=== PATIENT | male | born 1965 | race Caucasian/White ===

== ENCOUNTER 2018-04-06 09:38 | Emergency (ER) | payer MEDICAID ==
[~2018-04-06] VITALS: Ht 175.3 cm; Wt 99.8 kg
[~2018-04-06 09:38] MED LIST: PER10325T PO
[2018-04-06 09:44] VITALS: BP 112/85
[2018-04-06] MEDS ORDERED: IBUP-1985 PO (10:20)
[2018-04-06] MEDS ORDERED: ibuprofen tablet 400 MG TABLET PO ONE (10:20)
== END 2018-04-06 10:43 | disposition home or self-care (01) ==
LOC: ER 09:38
DX: G89.29 Other chronic pain (principal); M25.512 Pain in left shoulder; Z98.890 Other specified postprocedural states; Z79.899 Other long term (current) drug therapy; Z59.0 Homelessness; X50.1XXA Overexertion from prolonged static or awkward postures, initial encounter; Y93.84 Activity, sleeping; Y92.89 Other specified places as the place of occurrence of the external cause; Y99.8 Other external cause status
CPT/HCPCS: 99282; A4565

== ENCOUNTER 2018-09-01 11:58 | Emergency (ER) | payer MEDICAID ==
[~2018-09-01] VITALS: Ht 175.3 cm; Wt 107.0 kg
[~2018-09-01 11:58] MED LIST changes: +IBUP-1985 PO
[2018-09-01 12:15] VITALS: BP 130/91
== END 2018-09-01 12:51 | disposition left against medical advice (07) ==
LOC: ER 11:59
DX: R07.81 Pleurodynia (principal); Z53.21 Procedure and treatment not carried out due to patient leaving prior to being seen by health care provider
CPT/HCPCS: 93005; 99281

== ENCOUNTER 2018-09-18 15:54 | Inpatient (IN) | payer MEDICAID ==
[~2018-09-18] VITALS: Ht 175.3 cm; Wt 104.5 kg
[~2018-09-18 15:54] MED LIST changes: +PANT-47 PO
[2018-09-18 16:37] LABS: BASOPHILS # (AUTO) 0.1 X10'3 (0-0.2); BASOPHILS % (AUTO) 0.8 % (0-1); EOSINOPHILS % (AUTO) 0.1 % (0-6); HEMATOCRIT 50.9 % (42.0-52.0); HEMOGLOBIN 17.4 g/dl (14.0-17.9); LYMPHOCYTES # (AUTO) 0.6 X10'3 (1.1-4.8); LYMPHOCYTES % (AUTO) 5.4 % (21-51); MEAN CORPUSCULAR HEMOGLOBIN 32.8 PG (27.0-31.0); MEAN CORPUSCULAR HGB CONC 34.1 % (33.0-36.5); MEAN CORPUSCULAR VOLUME 96.1 FL (78-98); MONOCYTES # (AUTO) 0.9 X10'3 (0-0.9); MONOCYTES % (AUTO) 8.4 % (2-12); NEUTROPHILS # (AUTO) 9.2 X10'3 (1.8-7.7); NEUTROPHILS % (AUTO) 85.3 % (42-75); PLATELET COUNT 211 X10'3 (140-440); RED CELL DISTRIBUTION WIDTH 15.6 % (11.5-14.5); WHITE BLOOD COUNT 10.8 X10'3 (4.5-11.0)
[2018-09-18 16:44] LABS: PARTIAL THROMBOPLASTIN TIME 24 SECONDS (22-32)
[2018-09-18 16:47] LABS: ALANINE AMINOTRANSFERASE 230 U/L (12-78); ALBUMIN 4.2 G/DL (3.4-5.0); ALBUMIN/GLOBULIN RATIO 0.9 (1.1-1.5); ALKALINE PHOSPHATASE 108 IU/L (46-116); ANION GAP 18 (8-16); ASPARTATE AMINO TRANSFERASE 246 U/L (10-37); BILIRUBIN,TOTAL 0.8 MG/DL (0.1-1.0); BLOOD UREA NITROGEN 8 MG/DL (7-18); BUN/CREATININE RATIO 6.8 (5.4-32.0); CALCIUM 8.4 MG/DL (8.5-10.1); CHLORIDE 97 MMOL/L (99-107); CREATININE 1.18 MG/DL (0.60-1.10); ETHANOL 0.059 GM/DL (0.0-0.010); GLUCOSE 89 MG/DL (70-104); POTASSIUM 3.5 MMOL/L (3.5-5.1); SODIUM 136 MMOL/L (135-145); TOTAL CARBON DIOXIDE 21.4 MMOL/L (24-32); TOTAL PROTEIN 8.7 G/DL (6.4-8.2); eGFR 65 ML/MIN
[2018-09-18] MEDS ORDERED: LORazepam 2 mg/ml vial IV ONE ×2 (18:05→18:40)
[2018-09-18 18:19] LABS: LIPASE 551 U/L (73-393)
[2018-09-18] MEDS ORDERED: normal saline 1000ML IV soln IVB ONE (18:50)
[2018-09-18] MEDS ORDERED: pantoprazole 40 MG vial IV ONE (18:55)
[2018-09-18] MEDS ORDERED: cloNIDine 0.1 mg tablet PO SCH (19:45)
[2018-09-18 19:52] LABS: OCCULT BLOOD STOOL POSITIVE (Neg)
[2018-09-18] MEDS ORDERED: TRAZ-218 PO (20:48)
[2018-09-18] MEDS ORDERED: OLAN10TA19 PO (20:48)
[2018-09-18] MEDS ORDERED: PRAZ1CAP5 PO (20:48)
[2018-09-18] MEDS: normal saline 1000ml 1,000 ML IV SCH (20:53)
[2018-09-18] MEDS ORDERED: magnesium Cl slow-release 64mg tablet PO PRN (20:55)
[2018-09-18] MEDS ORDERED: magnesium 4gm in 100ml NS 100 ML IV PRN (20:55)
[2018-09-18] MEDS ORDERED: ondansetron/PF 4mg/2ml inj IV PRN (20:55)
[2018-09-18] MEDS ORDERED: mag hydrox/Alum hydrox/simeth 30ml oral suspension PO PRN (20:55)
[2018-09-18] MEDS ORDERED: metoclopramide 5 mg/ml inj IV PRN (20:55)
[2018-09-18] MEDS ORDERED: thiamine inj. 100 MG in normal saline 100ml IV soln 100 ML IV ONE (20:55)
[2018-09-18] MEDS ORDERED: magnesium 2GM in 50ml NS 50 ML IV PRN (20:55)
[2018-09-18] MEDS ORDERED: haloperidol lactate 5mg/ml inj IM PRN (20:55)
[2018-09-18] MEDS ORDERED: magnesium hydroxide 30ml (MOM) UD suspension PO PRN (20:55)
[2018-09-18] MEDS ORDERED: acetaminophen 325mg tablet PO PRN ×2 (20:55)
[2018-09-18] MEDS ORDERED: potassium Cl 20 mEq SR tablet PO PRN ×2 (20:55)
[2018-09-18] MEDS ORDERED: potassium Cl 40MEQ/NS 500ml 500 ML IV PRN ×2 (20:55)
[2018-09-18] MEDS: cloNIDine 0.1 mg tablet PO SCH (21:00)
[2018-09-18] MEDS ORDERED: thiamine 100mg/ml 2ml inj. IV ONE (21:15)
[2018-09-18] MEDS: OLANZapine 2.5MG tablet PO SCH (23:39)
[2018-09-18] MEDS: LORazepam 2 mg/ml vial IV PRN (23:45)
[2018-09-19 00:22] LABS: CLARITY,URINE CLEAR (Clear); COLOR,URINE YELLOW (Yellow); GLUCOSE, URINE NEGATIVE (Neg); KETONES,URINE 40 mg/dl (Neg); LEUKOCYTE ESTERASE ,URINE NEGATIVE (Neg); NITRITES, URINE NEGATIVE (Neg); OCCULT BLOOD,URINE NEGATIVE (Neg); PH,URINE 7.5 (4.8-8.0); PROTEIN,URINE TRACE mg/dl (Neg)
[2018-09-19 00:29] LABS: UA COLLECTION TYPE CLN CATCH MIDSTREAM
[2018-09-19 00:30] LABS: BACTERIA,URINE FEW /HPF (Neg); RBC,URINE NONE SEEN /HPF (0-2); SQUAMOUS EPITHELIAL CELL,UR FEW /LPF (FEW); WBC,URINE NONE SEEN /HPF (0-4)
[2018-09-19 00:40] LABS: URINE AMPHETAMINE SCREEN NEGATIVE (Neg); URINE BARBITUATE SCREEN NEGATIVE (Neg); URINE BENZODIAZEPINES SCREEN NEGATIVE (Neg); URINE CANNABINOID SCREEN POSITIVE (Neg); URINE COCAINE SCREEN NEGATIVE (Neg); URINE METHADONE SCREEN NEGATIVE (Neg); URINE OPIATE SCREEN NEGATIVE (Neg); URINE PHENCYCLIDINE SCREEN NEGATIVE (Neg)
[2018-09-19] MEDS: LORazepam 2 mg/ml vial IV PRN ×5 (05:47→23:21)
[2018-09-19 07:33] LABS: BASOPHILS % (AUTO) 0.6 % (0-1); EOSINOPHILS # (AUTO) 0.1 X10'3 (0-0.9); EOSINOPHILS % (AUTO) 1.5 % (0-6); HEMATOCRIT 44.2 % (42.0-52.0); LYMPHOCYTES # (AUTO) 0.5 X10'3 (1.1-4.8); LYMPHOCYTES % (AUTO) 9.4 % (21-51); MEAN CORPUSCULAR HEMOGLOBIN 32.3 PG (27.0-31.0); MEAN CORPUSCULAR HGB CONC 33.9 % (33.0-36.5); MEAN CORPUSCULAR VOLUME 95.3 FL (78-98); MEAN PLATELET VOLUME 7.4 FL (7.4-10.4); MONOCYTES # (AUTO) 0.7 X10'3 (0-0.9); MONOCYTES % (AUTO) 11.5 % (2-12); NEUTROPHILS # (AUTO) 4.5 X10'3 (1.8-7.7); PLATELET COUNT 131 X10'3 (140-440); RED BLOOD COUNT 4.64 X10'6 (4.70-6.10); RED CELL DISTRIBUTION WIDTH 15.9 % (11.5-14.5); WHITE BLOOD COUNT 5.8 X10'3 (4.5-11.0)
[2018-09-19 07:45] LABS: ANION GAP 11 (8-16); BLOOD UREA NITROGEN 8 MG/DL (7-18); BUN/CREATININE RATIO 7.9 (5.4-32.0); CALCIUM 7.9 MG/DL (8.5-10.1); CHLORIDE 101 MMOL/L (99-107); CREATININE 1.01 MG/DL (0.60-1.10); GLUCOSE 82 MG/DL (70-104); MAGNESIUM 2.1 MG/DL (1.5-2.4); POTASSIUM 3.7 MMOL/L (3.5-5.1); SODIUM 136 MMOL/L (135-145); TOTAL CARBON DIOXIDE 24.3 MMOL/L (24-32); eGFR 78 ML/MIN
[2018-09-19] MEDS: K and/or MAG REPLACEMENT MC SCH (08:00)
[2018-09-19] MEDS: cloNIDine 0.1 mg tablet PO SCH ×3 (08:00→21:27)
[2018-09-19] MEDS: normal saline 1000ml 1,000 ML IV SCH ×3 (11:08→21:28)
[2018-09-19] MEDS: pantoprazole 40mg Tablet.DR PO SCH (11:08)
[2018-09-19] MEDS: thiamine 100mg tablet PO SCH (11:08)
[2018-09-19] MEDS: HYDROcodone/acetaminophen 5mg/325mg tablet PO PRN (12:56)
[2018-09-19] MEDS ORDERED: prazosin 1mg capsule PO SCH (21:00)
[2018-09-19] MEDS ORDERED: traZODone 50mg tablet PO SCH (21:00)
[2018-09-19] MEDS ORDERED: olanzapine 10mg tablet PO SCH (21:00)
[2018-09-19] MEDS: OLANZapine 2.5MG tablet PO SCH (21:27)
--- NOTE | 2018-09-20 00:20 | NUR ---
relieving RN for lunch, pt is resting quietly on bed, slightly tremulous, pt is calm and cooperative, resp even and unlabored, waiting for bed assignment
[2018-09-20] MEDS: haloperidol 5mg tablet PO PRN ×2 (00:23→07:01)
[2018-09-20] MEDS: LORazepam 2 mg/ml vial IV PRN ×11 (00:26→18:24)
--- NOTE | 2018-09-20 00:45 | NUR ---
pt up at bedside to use urinal, slightly unsteady on feet, outer diameter technician at bedside
--- NOTE | 2018-09-20 02:09 | NUR ---
Patient is now sleeping quietly.
[2018-09-20] MEDS ORDERED: chlordiazePOXIDE 25mg capsule PO ONE (02:30)
--- NOTE | 2018-09-20 02:43 | NUR ---
Patient is awake and shaking. States he has all over body pain. Patient states he may AMA to go and get alcohol. I advised I could give him an ativan dose again along with a norco for his pain. This radio script writer contacted the hospitalist Dr. Martinez. Additional telephone orders for Melatonin and Librium recieved.
[2018-09-20] MEDS ORDERED: Melatonin 3mg tablet PO SCH ×2 (02:45→21:00)
[2018-09-20] MEDS ORDERED: Melatonin 3mg tablet PO ONE (02:45)
[2018-09-20] MEDS: HYDROcodone/acetaminophen 5mg/325mg tablet PO PRN ×3 (02:51→14:58)
--- NOTE | 2018-09-20 06:30 | NUR ---
Asleep upon change of shift observation. Heart monitors in place via Telemetry. Breathing WNL.
[2018-09-20] MEDS: cloNIDine 0.1 mg tablet PO SCH ×2 (06:59→13:15)
--- NOTE | 2018-09-20 07:00 | NUR ---
Patient awake and asking for medication to "stop these bad shakes." Ativan 2 mg. IV administered as ordered.
[2018-09-20] MEDS: thiamine 100mg tablet PO SCH (07:01)
[2018-09-20] MEDS: K and/or MAG REPLACEMENT MC SCH (07:01)
[2018-09-20] MEDS: pantoprazole 40mg Tablet.DR PO SCH (07:01)
[2018-09-20] MEDS: mag hydrox/Alum hydrox/simeth 30ml oral suspension PO SCH ×4 (08:00→20:06)
--- NOTE | 2018-09-20 08:30 | NUR ---
Served breakfast. Ate well. Returned to sleep immediately afterwards
--- NOTE | 2018-09-20 09:30 | NUR ---
Patient states "I'm feeling very shaky. I need Ativan or something." Lidia LOVE, Charge Nurse administered 2 mg. Ativan IV as ordered.
--- NOTE | 2018-09-20 10:00 | NUR ---
Call received from surgical floor stating patient had a bed in 360A. Report given to nurse and patient transported to the floor without event
[2018-09-20 10:32] LABS: BASOPHILS % (AUTO) 0.5 % (0-1); EOSINOPHILS # (AUTO) 0.1 X10'3 (0-0.9); EOSINOPHILS % (AUTO) 2.7 % (0-6); HEMATOCRIT 44.7 % (42.0-52.0); HEMOGLOBIN 15.1 g/dl (14.0-17.9); LYMPHOCYTES # (AUTO) 0.6 X10'3 (1.1-4.8); LYMPHOCYTES % (AUTO) 14.3 % (21-51); MEAN CORPUSCULAR HGB CONC 33.7 % (33.0-36.5); MEAN CORPUSCULAR VOLUME 94.8 FL (78-98); MEAN PLATELET VOLUME 7.3 FL (7.4-10.4); MONOCYTES # (AUTO) 0.4 X10'3 (0-0.9); NEUTROPHILS % (AUTO) 72.5 % (42-75); PLATELET COUNT 123 X10'3 (140-440); RED BLOOD COUNT 4.72 X10'6 (4.70-6.10); WHITE BLOOD COUNT 4.1 X10'3 (4.5-11.0)
--- NOTE | 2018-09-20 10:36 | NUR ---
Received report from KATE Chavira. Awaiting patient arrival to floor.
[2018-09-20 10:43] LABS: ALANINE AMINOTRANSFERASE 113 U/L (12-78); ALBUMIN/GLOBULIN RATIO 0.8 (1.1-1.5); ALKALINE PHOSPHATASE 83 IU/L (46-116); ANION GAP 11 (8-16); ASPARTATE AMINO TRANSFERASE 86 U/L (10-37); BILIRUBIN,TOTAL 0.7 MG/DL (0.1-1.0); BLOOD UREA NITROGEN 7 MG/DL (7-18); BUN/CREATININE RATIO 6.6 (5.4-32.0); CALCIUM 8.1 MG/DL (8.5-10.1); CHLORIDE 105 MMOL/L (99-107); CREATININE 1.06 MG/DL (0.60-1.10); GLUCOSE 138 MG/DL (70-104); MAGNESIUM 2.1 MG/DL (1.5-2.4); POTASSIUM 3.3 MMOL/L (3.5-5.1); SODIUM 141 MMOL/L (135-145); TOTAL CARBON DIOXIDE 24.6 MMOL/L (24-32); TOTAL PROTEIN 6.9 G/DL (6.4-8.2); eGFR 73 ML/MIN
[2018-09-20 11:33] VITALS: BP 108/83
--- NOTE | 2018-09-20 11:42 | NUR ---
RECEIVED PATIENT TO ROOM 360A VIA BED ACCOMPANIED BY X1 STAFF. PATIENT ALERT AND ORIENTED WITH NO COMPLAINTS AT THE TIME EXCEPT RIGHT UPPER ARM TENDERNESS AT IV SITE. IV SITE INFILTRATED. IV DC'D. PATIENT REQUESTED TO HAVE A SHOWER. PATIENT APPEARS TO BE ANXIOUS ABOUT WANTING "TO HAVE A SHOWER RIGHT NOW. I HAVE BEEN HERE FOR 4 DAYS WITHOUT A SHOWER." PATIENT SEEN TREMBLING AND I ADVISED PATIENT IT IS NOT SAFE FOR PATIENT TO HAVE A SHOWER AT THIS TIME UNLESS THERE IS STAFF MEMBER CLOSE BY HE IS HAVING TREMORS OF HIS BODY AND HE HAS ALREADY HAD A FALL WHERE HE HIT HIS HEAD. I OFFERED PATIENT A BED BATH INSTEAD AND HE REFUSED. PATIENT THEN STATED HE NEEDED TO USE THAT BATHROOM. ASSISTED PATIENT TO BATHROOM AND BACK. PATIENT CONTINUED TO HAVE TREMORS. HE CONTINUED TO ASK FOR A SHOWER. EDUCATED PATIENT IMPORTANCE OF HAVING A NEW IV STARTED AND IN RECEIVING HIS ATIVAN FIRST PATIENT STATES HE DOES HAVE "DT'S" WHEN HE DOES NOT GET TO DRINK ALCOHOL AND HE AGREED TO HAVE IV INSERTED FIRST. PATIENT RECEIVED ATIVAN ORDERED. BED IS LOW AND LOCKED, SIDE RAILS X2 UP, NON SKID SOCKS ON, TABS ALARM TO BE PLACED.
[2018-09-20] MEDS ORDERED: nicotine 21mg patch - 24 hr TD SCH (14:09)
--- NOTE | 2018-09-20 14:48 | NUR ---
Spoke to Dr. Kelley regarding there is an order for patient to not received opiods and to not call for opiod orders however there is an order for Monetta and patient had been getting Monetta in ED. Dr. Kelley stated patient has been complaining of pain from his fall and patient can continue to take norco.
--- NOTE | 2018-09-20 18:36 | NUR ---
Problems reprioritized. Patient report given, questions answered & plan of care reviewed with KATE MINOR.
[2018-09-20 19:00] VITALS: BP 143/97
[2018-09-20] MEDS ORDERED: LORazepam 2 mg/ml vial IV PRN ×2 (19:40→20:55)
[2018-09-20] MEDS ORDERED: LORazepam 1 MG tablet PO PRN (20:55)
[2018-09-20] MEDS ORDERED: gabapentin 300mg capsule PO SCH (21:00)
--- NOTE | 2018-09-20 21:00 | NUR ---
PT WANTS TO GO HOME. I TOLD PT HE NEEDS TO STAY AND GET OVER HE DT's. HE SAID " I NEED TO GO HOME AND TAKE CARE OF MY HOUSE" I EXPLAINED TO HIM HE WOULD HAVE TO LEAVE AMA AND I EXPLAINED WHAT THAT MEANT. I ALSO EXPLAINED THE RISK OF SERIOUS INJURY IF HE GOES HOME AND DRINKS. AFTER I NOTIFIED THE MD HE STILL WANTED TO GO. SO I CALLED SECURITY TO ESCORT HIM OUT AND TOOK OUT HIS IV AND HE LEFT WITH ALL HIS BELONGINGS, Addendum: 09/20/18 at 2200 by Tono Tomlin RN Amended: Links added.
--- NOTE | 2018-09-21 09:14 | NUR ---
Pt left AMA prior to meeting w/SS. SS referral closed.
[2018-09-22] MEDS ORDERED: LORazepam 1 MG tablet PO PRN (20:55)
[2018-09-22] MEDS ORDERED: LORazepam 2 mg/ml vial IV PRN (20:55)
== END 2018-09-20 21:15 | disposition left against medical advice (07) | DRG 469 ==
LOC: ER 15:54 → ED HOLD 20:53 → SUR 3N 09-20 10:59
PROVIDERS: ADMIT Hospitalist; ATTEND Internal Medicine
DX: N17.9 Acute kidney failure, unspecified (principal); F10.231 Alcohol dependence with withdrawal delirium; K70.10 Alcoholic hepatitis without ascites; F25.9 Schizoaffective disorder, unspecified; E86.0 Dehydration; F17.210 Nicotine dependence, cigarettes, uncomplicated; F31.9 Bipolar disorder, unspecified; F43.10 Post-traumatic stress disorder, unspecified; K29.20 Alcoholic gastritis without bleeding; S00.93XA Contusion of unspecified part of head, initial encounter; W18.39XA Other fall on same level, initial encounter; F41.9 Anxiety disorder, unspecified; G89.29 Other chronic pain; Z53.21 Procedure and treatment not carried out due to patient leaving prior to being seen by health care provider; Z59.0 Homelessness; Y93.89 Activity, other specified; Y92.89 Other specified places as the place of occurrence of the external cause; Y99.8 Other external cause status; Z79.899 Other long term (current) drug therapy; Z91.14 Patient's other noncompliance with medication regimen
CPT/HCPCS: 36415; 70450; 71045; 80048; 80053; 80305; 80320; 81001; 82272; 83690; 83735; 84484; 85025; 85610; 85730; 86885; 86900; 86901; 87070; 93005; 96361; 96374; 99285; C9113; G0378; J2060; J3411; J7030

== ENCOUNTER 2018-09-28 19:50 | Emergency (ER) | payer MEDICAID ==
[~2018-09-28] VITALS: Ht 175.3 cm; Wt 99.0 kg
[~2018-09-28 19:50] MED LIST changes: +OLAN10TA19 PO; +PRAZ1CAP5 PO; +TRAZ-218 PO
[2018-09-28 20:01] VITALS: BP 118/79
[2018-09-28] MEDS ORDERED: CYCL-1 PO (20:35)
[2018-09-28] MEDS ORDERED: ACET-2119 PO (20:35)
[2018-09-30] MEDS ORDERED: ONDA8TAB13 PO (12:36)
[2018-09-30] MEDS ORDERED: ACET-3068 PO (12:36)
== END 2018-09-28 20:55 | disposition home or self-care (01) ==
LOC: ER 19:52
DX: M25.512 Pain in left shoulder (principal); G89.29 Other chronic pain; F10.20 Alcohol dependence, uncomplicated; Z98.890 Other specified postprocedural states; Z59.0 Homelessness; Z79.899 Other long term (current) drug therapy; Y90.9 Presence of alcohol in blood, level not specified
CPT/HCPCS: 99284

== ENCOUNTER 2018-10-08 02:37 | Emergency (ER) | payer MEDICAID ==
[~2018-10-08] VITALS: Ht 175.3 cm; Wt 98.6 kg
[~2018-10-08 02:37] MED LIST changes: +ACET-3068 PO; +CYCL-1 PO; +ONDA8TAB13 PO
[2018-10-08] MEDS ORDERED: aspirin 81mg tab.chew PO ONE (03:20)
[2018-10-08 03:44] LABS: BASOPHILS # (AUTO) 0.1 X10'3 (0-0.2); BASOPHILS % (AUTO) 0.8 % (0-1); EOSINOPHILS # (AUTO) 0.2 X10'3 (0-0.9); EOSINOPHILS % (AUTO) 2.5 % (0-6); HEMATOCRIT 48.6 % (42.0-52.0); HEMOGLOBIN 17.1 g/dl (14.0-17.9); LYMPHOCYTES # (AUTO) 1.7 X10'3 (1.1-4.8); LYMPHOCYTES % (AUTO) 22.3 % (21-51); MEAN CORPUSCULAR HEMOGLOBIN 33.8 PG (27.0-31.0); MEAN CORPUSCULAR HGB CONC 35.1 g/dL (33.0-36.5); MEAN CORPUSCULAR VOLUME 96.2 FL (78-98); MEAN PLATELET VOLUME 6.8 FL (7.4-10.4); MONOCYTES # (AUTO) 0.7 X10'3 (0-0.9); MONOCYTES % (AUTO) 8.8 % (2-12); NEUTROPHILS # (AUTO) 4.9 X10'3 (1.8-7.7); NEUTROPHILS % (AUTO) 65.6 % (42-75); PLATELET COUNT 379 X10'3 (140-440); RED BLOOD COUNT 5.06 X10'6 (4.70-6.10); RED CELL DISTRIBUTION WIDTH 18.7 % (11.5-14.5); WHITE BLOOD COUNT 7.5 X10'3 (4.5-11.0)
[2018-10-08 03:51] LABS: ALANINE AMINOTRANSFERASE 79 U/L (12-78); ALBUMIN 3.7 G/DL (3.4-5.0); ALBUMIN/GLOBULIN RATIO 0.7 (1.1-1.5); ALKALINE PHOSPHATASE 110 IU/L (46-116); ANION GAP 15 (8-16); ASPARTATE AMINO TRANSFERASE 87 U/L (10-37); BILIRUBIN,TOTAL 0.4 MG/DL (0.1-1.0); BLOOD UREA NITROGEN 7 MG/DL (7-18); BUN/CREATININE RATIO 7.4 (5.4-32.0); CHLORIDE 100 MMOL/L (99-107); CREATININE 0.94 MG/DL (0.60-1.10); GLUCOSE 95 MG/DL (70-104); SODIUM 136 MMOL/L (135-145); TOTAL CARBON DIOXIDE 20.7 MMOL/L (24-32); TOTAL PROTEIN 8.7 G/DL (6.4-8.2); eGFR 84 ML/MIN
[2018-10-08 03:58] LABS: MAGNESIUM 2.3 MG/DL (1.5-2.4)
[2018-10-08] MEDS ORDERED: MUPI1OIN8 BOTHNARES (04:32)
[2018-10-08 04:46] VITALS: BP 125/85
== END 2018-10-08 04:47 | disposition home or self-care (01) ==
LOC: ER 02:38
DX: R07.89 Other chest pain (principal); R06.02 Shortness of breath; E78.00 Pure hypercholesterolemia, unspecified; I10 Essential (primary) hypertension; J45.909 Unspecified asthma, uncomplicated; F12.90 Cannabis use, unspecified, uncomplicated; G89.29 Other chronic pain; Z98.890 Other specified postprocedural states; Z79.899 Other long term (current) drug therapy; Z59.0 Homelessness
CPT/HCPCS: 36415; 71045; 80053; 83735; 83880; 84484; 85025; 93005; 99284

== ENCOUNTER 2018-10-19 08:39 | Inpatient (IN) | payer MEDICAID ==
[~2018-10-19] VITALS: Ht 175.3 cm; Wt 130.7 kg
[~2018-10-19 08:39] MED LIST changes: +MUPI1OIN8 BOTHNARES
[2018-10-19] MEDS ORDERED: LORazepam 2 mg/ml vial IV ONE ×2 (08:55→10:05)
[2018-10-19] MEDS ORDERED: normal saline 1000ML IV soln IVB ONE (09:00)
[2018-10-19 09:19] LABS: BASOPHILS # (AUTO) 0.1 X10'3 (0-0.2); EOSINOPHILS # (AUTO) 0.1 X10'3 (0-0.9); EOSINOPHILS % (AUTO) 1.3 % (0-6); HEMATOCRIT 46.2 % (42.0-52.0); HEMOGLOBIN 15.9 g/dl (14.0-17.9); LYMPHOCYTES # (AUTO) 0.4 X10'3 (1.1-4.8); LYMPHOCYTES % (AUTO) 4.7 % (21-51); MEAN CORPUSCULAR HEMOGLOBIN 33.5 PG (27.0-31.0); MEAN CORPUSCULAR HGB CONC 34.4 g/dL (33.0-36.5); MEAN CORPUSCULAR VOLUME 97.3 FL (78-98); MEAN PLATELET VOLUME 7.4 FL (7.4-10.4); MONOCYTES # (AUTO) 0.5 X10'3 (0-0.9); MONOCYTES % (AUTO) 5.9 % (2-12); NEUTROPHILS # (AUTO) 6.8 X10'3 (1.8-7.7); NEUTROPHILS % (AUTO) 87.1 % (42-75); PLATELET COUNT 99 X10'3 (140-440); RED BLOOD COUNT 4.75 X10'6 (4.70-6.10); RED CELL DISTRIBUTION WIDTH 18.1 % (11.5-14.5); WHITE BLOOD COUNT 7.8 X10'3 (4.5-11.0)
[2018-10-19 09:35] LABS: ALANINE AMINOTRANSFERASE 216 U/L (12-78); ALBUMIN 3.4 G/DL (3.4-5.0); ALBUMIN/GLOBULIN RATIO 0.9 (1.1-1.5); ALKALINE PHOSPHATASE 104 IU/L (46-116); ANION GAP 16 (8-16); ASPARTATE AMINO TRANSFERASE 250 U/L (10-37); BILIRUBIN,TOTAL 1.1 MG/DL (0.1-1.0); BLOOD UREA NITROGEN 9 MG/DL (7-18); BUN/CREATININE RATIO 9.2 (5.4-32.0); CALCIUM 7.6 MG/DL (8.5-10.1); CHLORIDE 102 MMOL/L (99-107); CREATININE 0.98 MG/DL (0.60-1.10); GLUCOSE 100 MG/DL (70-104); POTASSIUM 3.6 MMOL/L (3.5-5.1); SODIUM 140 MMOL/L (135-145); TOTAL CARBON DIOXIDE 21.6 MMOL/L (24-32); TOTAL PROTEIN 7.4 G/DL (6.4-8.2); eGFR 80 ML/MIN
[2018-10-19 09:43] LABS: ETHANOL 0.057 GM/DL (0.0-0.010); MAGNESIUM 1.8 MG/DL (1.5-2.4)
[2018-10-19 10:24] LABS: URINE AMPHETAMINE SCREEN NEGATIVE (Neg); URINE BARBITUATE SCREEN NEGATIVE (Neg); URINE BENZODIAZEPINES SCREEN NEGATIVE (Neg); URINE CANNABINOID SCREEN POSITIVE (Neg); URINE COCAINE SCREEN NEGATIVE (Neg); URINE METHADONE SCREEN NEGATIVE (Neg); URINE OPIATE SCREEN NEGATIVE (Neg); URINE PHENCYCLIDINE SCREEN NEGATIVE (Neg)
[2018-10-19] MEDS ORDERED: thiamine inj. 100 MG, magnesium sulf injection 2 GM, MVI, adult No.4 with vit. K 10 ML ... IV SCH ×4 (10:35)
[2018-10-19] MEDS ORDERED: dextrose 50%-water 50ml dispensing syringe IV PRN (11:15)
[2018-10-19] MEDS ORDERED: thiamine 100mg/ml 2ml inj. IV ONE (11:15)
[2018-10-19] MEDS ORDERED: magnesium hydroxide 30ml (MOM) UD suspension PO PRN (11:15)
[2018-10-19] MEDS ORDERED: mag hydrox/Alum hydrox/simeth 30ml oral suspension PO PRN (11:15)
[2018-10-19] MEDS: normal saline 1000ml 1,000 ML IV SCH ×2 (11:38→22:37)
[2018-10-19] MEDS: LORazepam 2 mg/ml vial IV PRN ×4 (11:45→20:14)
[2018-10-19] MEDS: folic acid inj. 2 MG, thiamine inj. 100 MG, MVI, adult No.4 with vit. K 10 ML in dextro... IV SCH ×4 (12:04)
[2018-10-19] MEDS ORDERED: GABA-532 PO (12:08)
[2018-10-19] MEDS ORDERED: RISP1TAB13 PO (12:08)
[2018-10-19] MEDS ORDERED: RISP1TAB3 PO (12:08)
[2018-10-19] MEDS ORDERED: ALBU8.5H8 IH (12:09)
[2018-10-19 12:51] LABS: LIPASE 482 U/L (73-393)
--- NOTE | 2018-10-19 12:53 | NUR ---
PT TO CT
--- NOTE | 2018-10-19 13:10 | NUR ---
PT BACK FROM CT
[2018-10-19] MEDS: ondansetron/PF 4mg/2ml inj IV PRN ×2 (13:22→20:19)
--- NOTE | 2018-10-19 13:49 | NUR ---
PT SLEEPING LAYING SUPINE. RESPIRATIONS EVEN AND UNLABORED, NO SIGN OF DISTRESS NOTED AT THIS TIME.
[2018-10-19] MEDS ORDERED: albuterol 2.5 MG/3 ML nebule NEB PRN (16:25)
--- NOTE | 2018-10-19 17:23 | NUR ---
Report given, patient care assumed. Pt requesting ativan, a meal, and the tv.
[2018-10-19 17:24] VITALS: BP 137/88
[2018-10-19 18:00] VITALS: BP 129/89
--- NOTE | 2018-10-19 18:02 | NUR ---
Pt stating his tv is broken and wants to be moved to a different room.
--- NOTE | 2018-10-19 18:56 | NUR ---
REPORT REC'D FROM KATE BECKHAM. PATIENT JUST ARRIVED ON FLOOR FROM ER, SKIN CHECK DONE, PT IS ORIENTED AND WEAK FROM W/D ETOH. UP TO BR WITH ONE PERSON ASSIST, BM AND URINE.
[2018-10-19] MEDS: prazosin 1mg capsule PO SCH (20:17)
[2018-10-19] MEDS: gabapentin 300mg capsule PO SCH (20:17)
[2018-10-19] MEDS: heparin, porcine 5000 units/ml vial SQ SCH (20:18)
[2018-10-20] VITALS (13 sets, daily range): BP systolic 132–151; BP diastolic 82–96
[2018-10-20] MEDS: LORazepam 2 mg/ml vial IV PRN ×8 (02:16→18:45)
[2018-10-20 04:55] LABS: BASOPHILS % (AUTO) 0.4 % (0-1); EOSINOPHILS # (AUTO) 0.2 X10'3 (0-0.9); EOSINOPHILS % (AUTO) 4.1 % (0-6); HEMATOCRIT 44.2 % (42.0-52.0); HEMOGLOBIN 15.2 g/dl (14.0-17.9); LYMPHOCYTES # (AUTO) 0.6 X10'3 (1.1-4.8); LYMPHOCYTES % (AUTO) 13.5 % (21-51); MEAN CORPUSCULAR HEMOGLOBIN 33.4 PG (27.0-31.0); MEAN CORPUSCULAR HGB CONC 34.3 g/dL (33.0-36.5); MEAN CORPUSCULAR VOLUME 97.5 FL (78-98); MEAN PLATELET VOLUME 7.8 FL (7.4-10.4); MONOCYTES # (AUTO) 0.4 X10'3 (0-0.9); MONOCYTES % (AUTO) 8.6 % (2-12); NEUTROPHILS # (AUTO) 3.4 X10'3 (1.8-7.7); NEUTROPHILS % (AUTO) 73.4 % (42-75); PLATELET COUNT 70 X10'3 (140-440); RED BLOOD COUNT 4.54 X10'6 (4.70-6.10); WHITE BLOOD COUNT 4.7 X10'3 (4.5-11.0)
[2018-10-20 05:11] LABS: ALANINE AMINOTRANSFERASE 144 U/L (12-78); ALBUMIN/GLOBULIN RATIO 0.8 (1.1-1.5); ALKALINE PHOSPHATASE 94 IU/L (46-116); ANION GAP 12 (8-16); ASPARTATE AMINO TRANSFERASE 124 U/L (10-37); BILIRUBIN,TOTAL 1.5 MG/DL (0.1-1.0); CALCIUM 7.5 MG/DL (8.5-10.1); CHLORIDE 104 MMOL/L (99-107); CREATININE 0.92 MG/DL (0.60-1.10); GLUCOSE 75 MG/DL (70-104); POTASSIUM 3.4 MMOL/L (3.5-5.1); SODIUM 139 MMOL/L (135-145); TOTAL CARBON DIOXIDE 23.1 MMOL/L (24-32); TOTAL PROTEIN 6.8 G/DL (6.4-8.2); eGFR 86 ML/MIN
[2018-10-20 05:48] LABS: INR 1.1 INR; PROTHROMBIN TIME 11.3 SECONDS (9.0-12.0)
[2018-10-20 05:52] LABS: BLOOD UREA NITROGEN 9 MG/DL (7-18); BUN/CREATININE RATIO 9.8 (5.4-32.0)
--- NOTE | 2018-10-20 06:23 | NUR ---
REPORT GIVEN TO KATE LOO.
[2018-10-20] MEDS: folic acid inj. 2 MG, thiamine inj. 100 MG, MVI, adult No.4 with vit. K 10 ML in dextro... IV SCH ×4 (07:51)
[2018-10-20] MEDS: gabapentin 300mg capsule PO SCH ×3 (07:51→19:55)
[2018-10-20] MEDS: normal saline 1000ml 1,000 ML IV SCH ×2 (07:52→17:11)
[2018-10-20] MEDS: heparin, porcine 5000 units/ml vial SQ SCH ×2 (07:53→19:54)
--- NOTE | 2018-10-20 09:21 | NUR ---
Asked about NPO order Paged Dr. Spence "Re: [place] [id number]. Can this patient eat? currently has NPO orders. Thank you, Johana [facility] [phone]"
[2018-10-20] MEDS ORDERED: regadenoson 0.4mg/5ml syringe IV PRN (09:55)
[2018-10-20] MEDS ORDERED: nitroGLYCERIN 0.4mg SUBLingual tab SL PRN (09:55)
[2018-10-20] MEDS ORDERED: metoprolol tartrate 1mg/ml inj IV PRN (09:55)
[2018-10-20] MEDS ORDERED: aminophylline 250mg/10ml inj. IV PRN (09:55)
[2018-10-20] MEDS ORDERED: regadenoson 0.4mg/5ml syringe IV ONE (12:38)
[2018-10-20] MEDS ORDERED: aminophylline inj. 10 ML IV ONE (12:38)
--- NOTE | 2018-10-20 13:59 | NUR ---
PAGED ECHO "RE: [place] [address]. ORDER FOR ECHO. THANK YOU, EZE [facility] [phone]"
--- NOTE | 2018-10-20 15:06 | NUR ---
PAGED FOR DIET ORDER PAGED DR. LAURA- "RE: [place] [id number]. STRESS TEST NEG. CAN I FEED HIM A REGULAR DIET? THANK YOU, EZE [facility] [phone]"
--- NOTE | 2018-10-20 16:22 | NUR ---
PAGED ABOUT HOME MEDS PAGED DR. LAURA "RE; [place] [id number]. CAN YOU CHECK HOME MED LIST AND CONTINUE WHAT YOU WOULD LIKE THE PATIENT TO TAKE? THANK YOU, EZE [facility] [phone]"
--- NOTE | 2018-10-20 16:44 | NUR ---
PATIENT TRANSFERRED TO [facility] ALERT, ORIENTED, CALM, AND COOPERATIVE. SHAKING MILDLY PER BASELINE. ALL BELONGINGS TRANSFERRED WITH PATIENT. REPORT PREVIOUSLY CALLED TO NEWSPAPER PHOTO EDITOR.
--- NOTE | 2018-10-20 17:00 | NUR ---
Patient to room 354 A from PCU. Patient alert, oriented and slightly anxious at this time. Ativan to be given by primary nurse. Patient stable. BLL. Call light and items of frequent use in reach of patient. Will continue to monitor.
--- NOTE | 2018-10-20 18:25 | NUR ---
Problems reprioritized. Patient report given, questions answered & plan of care reviewed with KATE Mauro. Patient anxious at this time. KATE Mauro giving ativan.
[2018-10-20] MEDS ORDERED: traZODone 50mg tablet PO PRN (18:30)
[2018-10-20] MEDS: prazosin 1mg capsule PO SCH (19:55)
--- NOTE | 2018-10-20 20:22 | NUR ---
PT DECIDED TO GO AMA AFTER I WORKED WITH PT FOR NEARLY 2 HOURS TO GET HIM TO STAY. PT STATES HE HAS A PLACE TO GO TO. HE STATES HE IS NOT LEAVING TO GO DRINKING JUST TO SMOKE. PT SIGNED AMA PAPERWORK AND DR. LAURA NOTIFIED EARLIER. PIV DC' D INTACT AND PT TAKING OUT OF HOSPITAL VIA W/C AND AMB WITH STEADY GAIT ALTHOUGH STILL QUITE SHAKY.
[2018-10-20] MEDS ORDERED: RISPERIDONE PO SCH (21:00)
[2018-10-20] MEDS ORDERED: risperiDONE 2mg tablet PO SCH (21:00)
[2018-10-20] MEDS ORDERED: olanzapine 10mg tablet PO SCH (21:00)
--- NOTE | 2018-10-21 09:42 | NUR ---
pt's left AMA, SS referral closed.
== END 2018-10-20 20:28 | disposition home or self-care (01) | DRG 203 ==
LOC: ER 08:39 → ED HOLD 11:11 → PCU 3S 17:10 → SUR 3N 10-20 16:54
PROVIDERS: ADMIT Family Medicine; ATTEND Family Medicine
DX: R07.89 Other chest pain (principal); D69.59 Other secondary thrombocytopenia; F10.239 Alcohol dependence with withdrawal, unspecified; F10.229 Alcohol dependence with intoxication, unspecified; E78.00 Pure hypercholesterolemia, unspecified; F17.210 Nicotine dependence, cigarettes, uncomplicated; F20.9 Schizophrenia, unspecified; F31.9 Bipolar disorder, unspecified; I10 Essential (primary) hypertension; J45.909 Unspecified asthma, uncomplicated; Z53.21 Procedure and treatment not carried out due to patient leaving prior to being seen by health care provider; E87.6 Hypokalemia
CPT/HCPCS: 36415; 71045; 74176; 78452; 80053; 80305; 80320; 82948; 83690; 83735; 83880; 84484; 85025; 85610; 87070; 93005; 93017; 93306; 94760; 96361; 96374; 96376; 99285; A9500; G0378; J0280; J1644; J2060; J2405; J3411; J3475; J3490; J7030; J7060

== ENCOUNTER 2018-10-23 11:58 | Emergency (ER) | payer MEDICAID ==
[~2018-10-23] VITALS: Ht 175.3 cm; Wt 60.0 kg
[~2018-10-23 11:58] MED LIST changes: -ACET-3068 PO; +ALBU8.5H8 IH; -CYCL-1 PO; +GABA-532 PO; -IBUP-1985 PO; -MUPI1OIN8 BOTHNARES; -ONDA8TAB13 PO; -PANT-47 PO; -PER10325T PO; +RISP1TAB13 PO; +RISP1TAB3 PO
[2018-10-23] MEDS ORDERED: magnesium 2GM in 50ml NS 50 ML IV ONE (13:20)
[2018-10-23] MEDS ORDERED: normal saline 1000ML IV soln IVB ONE ×2 (13:20→15:30)
[2018-10-23] MEDS ORDERED: chlordiazePOXIDE 25mg capsule PO ONE ×3 (13:20→16:10)
[2018-10-23] MEDS ORDERED: LORazepam 1 MG tablet PO ONE (13:20)
--- NOTE | 2018-10-23 13:26 | NUR ---
1320 EKG ATTEMPTED; HOWEVER, ASKED BY ANSON DURAND TO WAIT UNTIL PT IS MEDICATED DUE TO TREMORS.
[2018-10-23] MEDS ORDERED: cloNIDine 0.1 MG/24 HOUR patch (7 day patch) TD ONE (13:35)
[2018-10-23 14:12] LABS: BASOPHILS # (AUTO) 0.1 X10'3 (0-0.2); BASOPHILS % (AUTO) 0.8 % (0-1); EOSINOPHILS # (AUTO) 0.1 X10'3 (0-0.9); EOSINOPHILS % (AUTO) 1.3 % (0-6); HEMATOCRIT 50.5 % (42.0-52.0); HEMOGLOBIN 16.9 g/dl (14.0-17.9); LYMPHOCYTES % (AUTO) 14.2 % (21-51); MEAN CORPUSCULAR HEMOGLOBIN 32.8 PG (27.0-31.0); MEAN CORPUSCULAR HGB CONC 33.5 g/dL (33.0-36.5); MEAN CORPUSCULAR VOLUME 97.9 FL (78-98); MEAN PLATELET VOLUME 7.8 FL (7.4-10.4); MONOCYTES % (AUTO) 14.7 % (2-12); NEUTROPHILS # (AUTO) 4.5 X10'3 (1.8-7.7); PLATELET COUNT 197 X10'3 (140-440); RED BLOOD COUNT 5.16 X10'6 (4.70-6.10); RED CELL DISTRIBUTION WIDTH 16.8 % (11.5-14.5); WHITE BLOOD COUNT 6.7 X10'3 (4.5-11.0)
[2018-10-23 14:28] LABS: ALANINE AMINOTRANSFERASE 255 U/L (12-78); ALBUMIN 3.7 G/DL (3.4-5.0); ALBUMIN/GLOBULIN RATIO 0.8 (1.1-1.5); ALKALINE PHOSPHATASE 118 IU/L (46-116); ANION GAP 17 (8-16); ASPARTATE AMINO TRANSFERASE 274 U/L (10-37); BILIRUBIN,TOTAL 1.4 MG/DL (0.1-1.0); BLOOD UREA NITROGEN 9 MG/DL (7-18); BUN/CREATININE RATIO 10.1 (5.4-32.0); CALCIUM 8.9 MG/DL (8.5-10.1); CHLORIDE 101 MMOL/L (99-107); CREATININE 0.89 MG/DL (0.60-1.10); ETHANOL < 0.010 GM/DL (0.0-0.010); GLUCOSE 95 MG/DL (70-104); POTASSIUM 3.2 MMOL/L (3.5-5.1); SODIUM 138 MMOL/L (135-145); TOTAL CARBON DIOXIDE 20.3 MMOL/L (24-32); TOTAL PROTEIN 8.3 G/DL (6.4-8.2); eGFR 90 ML/MIN
[2018-10-23] MEDS ORDERED: potassium Cl 20 mEq SR tablet PO ONE (14:45)
[2018-10-23] MEDS ORDERED: potassium 10mEq/100ml NS w/LIDOcaine (10mg/bag) IV ONE (14:45)
[2018-10-23] MEDS ORDERED: folic acid 1mg tablet PO ONE (15:00)
[2018-10-23] MEDS ORDERED: thiamine 100mg tablet PO ONE (15:00)
[2018-10-23] MEDS ORDERED: LORazepam 2 mg/ml vial IV ONE (15:00)
[2018-10-23] MEDS ORDERED: dextrose 5%-1/2 normal saline 1,000 ML IV ONE (15:30)
[2018-10-23] MEDS ORDERED: PHE12.5T PO (15:54)
[2018-10-23] MEDS ORDERED: CHLO25CA10 PO (15:54)
[2018-10-23 16:08] LABS: CLARITY,URINE CLEAR (Clear); COLOR,URINE AMBER (Yellow); GLUCOSE, URINE NEGATIVE (Neg); KETONES,URINE 15 mg/dl (Neg); LEUKOCYTE ESTERASE ,URINE NEGATIVE (Neg); NITRITES, URINE NEGATIVE (Neg); OCCULT BLOOD,URINE NEGATIVE (Neg); PROTEIN,URINE 100 mg/dl (Neg); UA COLLECTION TYPE CLN CATCH MIDSTREAM
[2018-10-23 16:17] LABS: BACTERIA,URINE NONE SEEN /HPF (Neg); MUCUS STRANDS NONE SEEN /LPF (Neg); RBC,URINE NONE SEEN /HPF (0-2); SQUAMOUS EPITHELIAL CELL,UR NONE SEEN /LPF (FEW); WBC,URINE NONE SEEN /HPF (0-4)
[2018-10-23 16:24] LABS: URINE AMPHETAMINE SCREEN POSITIVE (Neg); URINE BARBITUATE SCREEN NEGATIVE (Neg); URINE BENZODIAZEPINES SCREEN NEGATIVE (Neg); URINE CANNABINOID SCREEN POSITIVE (Neg); URINE COCAINE SCREEN NEGATIVE (Neg); URINE METHADONE SCREEN NEGATIVE (Neg); URINE OPIATE SCREEN NEGATIVE (Neg); URINE PHENCYCLIDINE SCREEN NEGATIVE (Neg)
[2018-10-23 17:26] VITALS: BP 124/82
== END 2018-10-23 17:27 | disposition home or self-care (01) ==
LOC: ER 11:58
DX: F10.239 Alcohol dependence with withdrawal, unspecified (principal); I10 Essential (primary) hypertension; E78.00 Pure hypercholesterolemia, unspecified; J45.909 Unspecified asthma, uncomplicated; G89.29 Other chronic pain; F31.9 Bipolar disorder, unspecified; F20.9 Schizophrenia, unspecified; F12.90 Cannabis use, unspecified, uncomplicated; Z59.0 Homelessness
CPT/HCPCS: 36415; 80053; 80305; 80320; 81001; 83735; 85025; 93005; 96365; 96366; 96375; 99284; J2060; J3475; J3480; J7030

== ENCOUNTER 2018-10-27 04:36 | Emergency (ER) | payer MEDICAID ==
[~2018-10-27] VITALS: Ht 175.3 cm; Wt 99.0 kg
[~2018-10-27 04:36] MED LIST changes: +CHLO25CA10 PO; +PHE12.5T PO
[2018-10-27 04:41] VITALS: BP 144/98
[2018-10-27] MEDS ORDERED: chlordiazePOXIDE 25mg capsule PO ONE (04:45)
[2018-10-27] MEDS ORDERED: ketorolac trometh inj. 60 MG/2 ML VIAL IM ONE (04:45)
[2018-10-27] MEDS ORDERED: PHE12.5T PO (04:46)
== END 2018-10-27 05:00 | disposition home or self-care (01) ==
LOC: ER 04:36
DX: M25.512 Pain in left shoulder (principal); F10.239 Alcohol dependence with withdrawal, unspecified; I10 Essential (primary) hypertension; E78.00 Pure hypercholesterolemia, unspecified; J45.909 Unspecified asthma, uncomplicated; G89.29 Other chronic pain; Z59.0 Homelessness
CPT/HCPCS: 73030; 96372; 99283; J1885

== ENCOUNTER 2020-06-17 16:51 | Emergency (ER) | payer MEDICAID, OTHER ==
[~2020-06-17] VITALS: Ht 175.3 cm; Wt 79.0 kg
[~2020-06-17 16:51] MED LIST changes: -PHE12.5T PO; +PROM12.512 PO; -TRAZ-218 PO; +TRAZ-251 PO
[2020-06-17 17:02] VITALS: BP 114/73
[2020-06-17] MEDS ORDERED: ketorolac trometh. 30mg/ml inj. IM ONE (17:05)
[2020-06-17] MEDS ORDERED: HYDR-3965 PO (18:13)
== END 2020-06-17 18:32 | disposition home or self-care (01) ==
LOC: ER 16:52
DX: S22.32XA Fracture of one rib, left side, initial encounter for closed fracture (principal); E78.00 Pure hypercholesterolemia, unspecified; I10 Essential (primary) hypertension; J45.909 Unspecified asthma, uncomplicated; G89.29 Other chronic pain; F31.9 Bipolar disorder, unspecified; F20.9 Schizophrenia, unspecified; F12.90 Cannabis use, unspecified, uncomplicated; Z98.890 Other specified postprocedural states; Z79.899 Other long term (current) drug therapy; Y04.2XXA Assault by strike against or bumped into by another person, initial encounter; Y93.89 Activity, other specified; Y92.89 Other specified places as the place of occurrence of the external cause; Y99.8 Other external cause status
CPT/HCPCS: 71101; 96372; 99283; J1885

== ENCOUNTER 2020-06-18 08:25 | Emergency (ER) | payer OTHER ==
[~2020-06-18] VITALS: Ht 175.3 cm; Wt 77.8 kg
[~2020-06-18 08:25] MED LIST changes: +HYDR-3965 PO
[2020-06-18 08:42] VITALS: BP 120/94
[2020-06-18] MEDS ORDERED: HYDROcodone/acetaminophen 5mg/325mg tablet PO ONE (09:25)
== END 2020-06-18 09:38 | disposition home or self-care (01) ==
LOC: ER 08:26
DX: S22.32XD Fracture of one rib, left side, subsequent encounter for fracture with routine healing (principal); E78.00 Pure hypercholesterolemia, unspecified; I10 Essential (primary) hypertension; J45.909 Unspecified asthma, uncomplicated; G89.29 Other chronic pain; F31.9 Bipolar disorder, unspecified; F20.9 Schizophrenia, unspecified; F12.90 Cannabis use, unspecified, uncomplicated; Z98.890 Other specified postprocedural states; Z59.0 Homelessness; Y04.2XXD Assault by strike against or bumped into by another person, subsequent encounter
CPT/HCPCS: 99283

== ENCOUNTER 2020-06-19 17:46 | Emergency (ER) | payer OTHER ==
[~2020-06-19] VITALS: Ht 172.7 cm; Wt 80.0 kg
[2020-06-19 17:50] VITALS: BP 131/81
== END 2020-06-19 19:29 | disposition left against medical advice (07) ==
LOC: ER 17:47
DX: N48.89 Other specified disorders of penis (principal); Z53.21 Procedure and treatment not carried out due to patient leaving prior to being seen by health care provider

== ENCOUNTER 2020-06-24 07:45 | Emergency (ER) | payer OTHER ==
[~2020-06-24] VITALS: Ht 175.3 cm; Wt 74.0 kg
[2020-06-24 07:55] VITALS: BP 139/96
--- NOTE | 2020-06-24 08:13 | NUR ---
Patient waiting with another patient in waiting room. Patient that was with him became very hostile and agressive and escorted out of building, patient went with the aggressive pt.
--- NOTE | 2020-06-24 08:17 | NUR ---
PT WAS WITH ANOTHER PT WHO WAS ALSO HERE TO BE SEEN. PT'S CLINICAL RESEARCHER BECAME AGGRESSIVE WITH STAFF AND WAS EXCORTED OUT OF THE ER. THIS PT WAS COOPERATIVE AND LEFT WITH HIS CLINICAL RESEARCHER.
== END 2020-06-24 08:20 | disposition left against medical advice (07) ==
LOC: ER 07:46
DX: M79.603 Pain in arm, unspecified (principal); Z53.21 Procedure and treatment not carried out due to patient leaving prior to being seen by health care provider

== ENCOUNTER 2020-07-09 21:58 | Emergency (ER) | payer MEDICAID, OTHER ==
[~2020-07-09] VITALS: Ht 175.3 cm; Wt 68.2 kg
--- NOTE | 2020-07-09 22:30 | NUR ---
Patient appears to be sleeping, resting comfortably.
[2020-07-09] MEDS ORDERED: LORazepam 2 mg/ml vial IV ONE (22:55)
[2020-07-09] MEDS ORDERED: normal saline 1000ML IV soln IVB ONE (22:55)
[2020-07-09 23:41] LABS: BASOPHILS % (AUTO) 0.3 % (0-1); EOSINOPHILS % (AUTO) 0.1 % (0-6); HEMATOCRIT 41.5 % (42.0-52.0); HEMOGLOBIN 14.4 g/dl (14.0-17.9); LYMPHOCYTES # (AUTO) 0.3 X10'3 (1.1-4.8); LYMPHOCYTES % (AUTO) 3.3 % (21-51); MEAN CORPUSCULAR HGB CONC 34.7 g/dL (33.0-36.5); MEAN PLATELET VOLUME 7.6 FL (7.4-10.4); MONOCYTES % (AUTO) 9.6 % (2-12); NEUTROPHILS # (AUTO) 8.8 X10'3 (1.8-7.7); NEUTROPHILS % (AUTO) 86.7 % (42-75); PLATELET COUNT 158 X10'3 (140-440); RED BLOOD COUNT 4.11 X10'6 (4.70-6.10); RED CELL DISTRIBUTION WIDTH 12.7 % (11.5-14.5); WHITE BLOOD COUNT 10.1 X10'3 (4.5-11.0)
[2020-07-09 23:50] LABS: ALANINE AMINOTRANSFERASE 125 U/L (12-78); ALBUMIN/GLOBULIN RATIO 0.7 (1.1-1.5); ALKALINE PHOSPHATASE 145 IU/L (46-116); ANION GAP 10 (8-16); ASPARTATE AMINO TRANSFERASE 149 U/L (10-37); BILIRUBIN,TOTAL 1.3 MG/DL (0.1-1.0); BLOOD UREA NITROGEN 12 MG/DL (7-18); BUN/CREATININE RATIO 13.5 (5.4-32.0); CALCIUM 8.2 MG/DL (8.5-10.1); CHLORIDE 98 MMOL/L (99-107); CREATININE 0.89 MG/DL (0.60-1.10); GLUCOSE 88 MG/DL (70-104); LIPASE 427 U/L (73-393); POTASSIUM 3.2 MMOL/L (3.5-5.1); SODIUM 134 MMOL/L (135-145); TOTAL CARBON DIOXIDE 26.5 MMOL/L (24-32); TOTAL PROTEIN 7.2 G/DL (6.4-8.2); eGFR 89 ML/MIN
[2020-07-10 00:56] LABS: CLARITY,URINE CLEAR (Clear); COLOR,URINE AMBER (Yellow); GLUCOSE, URINE NEGATIVE (Neg); KETONES,URINE 40 mg/dl (Neg); LEUKOCYTE ESTERASE ,URINE NEGATIVE (Neg); NITRITES, URINE NEGATIVE (Neg); OCCULT BLOOD,URINE TRACE-LYSED (Neg); PH,URINE 6.5 (4.8-8.0); PROTEIN,URINE 30 mg/dl (Neg); UROBILINOGEN,URINE 0.2 E.U/dL (0.2-1.0)
[2020-07-10 00:57] LABS: UA COLLECTION TYPE CLN CATCH MIDSTREAM
[2020-07-10 01:00] LABS: URINE AMPHETAMINE SCREEN POSITIVE (Neg); URINE BARBITUATE SCREEN POSITIVE (Neg); URINE BENZODIAZEPINES SCREEN POSITIVE (Neg); URINE CANNABINOID SCREEN POSITIVE (Neg); URINE COCAINE SCREEN NEGATIVE (Neg); URINE METHADONE SCREEN NEGATIVE (Neg); URINE OPIATE SCREEN NEGATIVE (Neg); URINE PHENCYCLIDINE SCREEN NEGATIVE (Neg)
[2020-07-10 01:03] LABS: BACTERIA,URINE NONE SEEN /HPF (Neg); MUCUS STRANDS NONE SEEN /LPF (Neg); RBC,URINE 0-2 /HPF (0-2); SQUAMOUS EPITHELIAL CELL,UR FEW /LPF (FEW); WBC,URINE 0-4 /HPF (0-4)
--- NOTE | 2020-07-10 02:15 | NUR ---
Patient resting comfortably
--- NOTE | 2020-07-10 02:43 | NUR ---
Patient advised of discharge and asked to be transported ot [facility] where he has been staying.
--- NOTE | 2020-07-10 02:53 | NUR ---
pt ambulatory to restroom
[2020-07-10 03:21] VITALS: BP 134/85
== END 2020-07-10 03:25 | disposition home or self-care (01) ==
LOC: ER 21:59
DX: G89.29 Other chronic pain (principal); M54.89 Other dorsalgia; R19.7 Diarrhea, unspecified; R53.1 Weakness; R20.0 Anesthesia of skin; F19.10 Other psychoactive substance abuse, uncomplicated; E78.00 Pure hypercholesterolemia, unspecified; I10 Essential (primary) hypertension; J45.909 Unspecified asthma, uncomplicated; F31.9 Bipolar disorder, unspecified; F20.9 Schizophrenia, unspecified; F12.90 Cannabis use, unspecified, uncomplicated; F17.200 Nicotine dependence, unspecified, uncomplicated; Z86.19 Personal history of other infectious and parasitic diseases; Z98.890 Other specified postprocedural states; Z72.89 Other problems related to lifestyle; Z59.0 Homelessness; Z79.899 Other long term (current) drug therapy
CPT/HCPCS: 36415; 72131; 80053; 80305; 81001; 83690; 85025; 96361; 96374; 99285; J2060; J7030

== ENCOUNTER → 2020-10-26 | Emergency (ER) | payer MEDICAID ==
[~2020-10-26] VITALS: Ht 175.3 cm; Wt 84.1 kg
[~2020-10-26] MED LIST changes: -HYDR-3965 PO; -RISP1TAB3 PO; +RISP1TAB98 PO
== END | disposition left against medical advice (07) ==
LOC: ER 10:33
DX: R06.02 Shortness of breath (principal); R05 Cough; R43.8 Other disturbances of smell and taste; Z20.822 Contact with and (suspected) exposure to COVID-19; E78.00 Pure hypercholesterolemia, unspecified; I10 Essential (primary) hypertension; J45.909 Unspecified asthma, uncomplicated; G89.29 Other chronic pain; F31.9 Bipolar disorder, unspecified; F20.9 Schizophrenia, unspecified; F17.200 Nicotine dependence, unspecified, uncomplicated; F12.90 Cannabis use, unspecified, uncomplicated; Z86.19 Personal history of other infectious and parasitic diseases; Z98.890 Other specified postprocedural states; Z72.89 Other problems related to lifestyle; Z59.0 Homelessness; Z79.899 Other long term (current) drug therapy
CPT/HCPCS: 99281; 99283

== ENCOUNTER 2020-11-03 15:13 | Emergency (ER) | payer MEDICAID ==
[~2020-11-03] VITALS: Ht 175.3 cm; Wt 84.1 kg
[2020-11-03] MEDS ORDERED: ibuprofen tablet 400 MG TABLET PO ONE (15:25)
== END 2020-11-03 15:43 | disposition home or self-care (01) ==
LOC: ER 15:14
DX: S29.012A Strain of muscle and tendon of back wall of thorax, initial encounter (principal); E78.00 Pure hypercholesterolemia, unspecified; I10 Essential (primary) hypertension; J45.909 Unspecified asthma, uncomplicated; G89.29 Other chronic pain; F31.9 Bipolar disorder, unspecified; F20.9 Schizophrenia, unspecified; F12.90 Cannabis use, unspecified, uncomplicated; Z72.89 Other problems related to lifestyle; Z98.890 Other specified postprocedural states; Z59.0 Homelessness; Z86.19 Personal history of other infectious and parasitic diseases; Z79.899 Other long term (current) drug therapy; X58.XXXA Exposure to other specified factors, initial encounter; Y93.89 Activity, other specified; Y92.89 Other specified places as the place of occurrence of the external cause; Y99.8 Other external cause status
CPT/HCPCS: 99282

== ENCOUNTER 2020-11-06 12:04 | Emergency (ER) | payer MEDICAID ==
[~2020-11-06] VITALS: Ht 175.3 cm; Wt 84.1 kg
[2020-11-06 12:17] VITALS: BP 149/109
--- NOTE | 2020-11-06 13:57 | NUR ---
LABS DRAWN PER RESIDENTIAL REAL ESTATE APPRAISER. PATIENT IS ANXIOUS AND VERBALIZING THAT HE IS TIRED OF WAITING AND WANTS TO LEAVE. PATIENT INFORMED THAT HE HAS THE RIGHT TO LEAVE AMA BUT HIS WORK-UP IS NOT COMPLETE YET. PATIENT SAYS HE WILL STAY FOR NOW.
--- NOTE | 2020-11-06 14:08 | NUR ---
PATIENT STATES HE IS HAVING ANXIETY AND NEEDS TO LEAVE BECAUSE HE HAS BEEN WAITING A LONG TIME AND WANTS TO GO HOME. PATIENT SIGNED AMA PAPERWORK AND DEPARTED AMBULATORY, IN STABLE CONDITION.
== END 2020-11-06 14:11 | disposition left against medical advice (07) ==
LOC: ER 12:04
DX: R07.81 Pleurodynia (principal); R05 Cough; R06.02 Shortness of breath; E78.00 Pure hypercholesterolemia, unspecified; I10 Essential (primary) hypertension; J45.909 Unspecified asthma, uncomplicated; Z86.19 Personal history of other infectious and parasitic diseases; G89.29 Other chronic pain; F17.200 Nicotine dependence, unspecified, uncomplicated; F12.90 Cannabis use, unspecified, uncomplicated; Z59.0 Homelessness; Z72.89 Other problems related to lifestyle; Z79.899 Other long term (current) drug therapy
CPT/HCPCS: 71046; 85025; 99283

== ENCOUNTER 2020-11-14 19:26 | Inpatient (IN) | payer MEDICAID ==
[~2020-11-14] VITALS: Ht 175.3 cm; Wt 83.8 kg
[2020-11-14 20:40] LABS: BASOPHILS # (AUTO) 0.1 X10'3 (0-0.2); BASOPHILS % (AUTO) 1.1 % (0-1); EOSINOPHILS % (AUTO) 0.1 % (0-6); HEMOGLOBIN 7.3 g/dl (14.0-17.9); MEAN CORPUSCULAR HEMOGLOBIN 32.6 PG (27.0-31.0); MEAN CORPUSCULAR HGB CONC 34.8 g/dL (33.0-36.5); MEAN CORPUSCULAR VOLUME 93.8 FL (78-98); MEAN PLATELET VOLUME 7.1 FL (7.4-10.4); MONOCYTES # (AUTO) 0.5 X10'3 (0-0.9); MONOCYTES % (AUTO) 4.5 % (2-12); NEUTROPHILS # (AUTO) 10.3 X10'3 (1.8-7.7); NEUTROPHILS % (AUTO) 86.3 % (42-75); PLATELET COUNT 222 X10'3 (140-440); RED BLOOD COUNT 2.24 X10'6 (4.70-6.10); RED CELL DISTRIBUTION WIDTH 16.2 % (11.5-14.5); WHITE BLOOD COUNT 11.9 X10'3 (4.5-11.0)
[2020-11-14 20:49] LABS: ALANINE AMINOTRANSFERASE 31 U/L (12-78); ALBUMIN 2.6 G/DL (3.4-5.0); ALBUMIN/GLOBULIN RATIO 0.7 (1.1-1.5); ALKALINE PHOSPHATASE 84 IU/L (46-116); ANION GAP 12 (8-16); ASPARTATE AMINO TRANSFERASE 44 U/L (10-37); BILIRUBIN,TOTAL 0.3 MG/DL (0.1-1.0); BLOOD UREA NITROGEN 23 MG/DL (7-18); BUN/CREATININE RATIO 32.9 (5.4-32.0); CALCIUM 7.8 MG/DL (8.5-10.1); CHLORIDE 96 MMOL/L (99-107); GLUCOSE 109 MG/DL (70-104); POTASSIUM 3.9 MMOL/L (3.5-5.1); SODIUM 132 MMOL/L (135-145); TOTAL CARBON DIOXIDE 23.7 MMOL/L (24-32); TOTAL PROTEIN 6.4 G/DL (6.4-8.2); eGFR > 90 ML/MIN
[2020-11-14] MEDS ORDERED: octreotide inj. 500 MCG in normal saline 100ml IV soln 97.5 ML IV SCH (20:55)
[2020-11-14] MEDS ORDERED: pantoprazole 40 MG vial IV ONE (20:55)
[2020-11-14] MEDS ORDERED: CefTRIAXone/D5W-Rocephin 1gm 50 ML IV ONE (20:55)
[2020-11-14] MEDS ORDERED: iohexol 300mg/ml 100ml inj. ONE (21:03)
[2020-11-14] MEDS ORDERED: morphine 10mg/ml inj. IV PRN (21:30)
[2020-11-14] MEDS ORDERED: NO HOME MEDS (21:34)
--- NOTE | 2020-11-14 21:35 | NUR ---
CONSENT FOR BLOOD TRANSFUSION REVIEWED AND SIGNED BY RANULFO REYNOSO AND WITNESS
--- NOTE | 2020-11-14 21:50 | NUR ---
PT TO CT VIA NICOLAS
--- NOTE | 2020-11-14 22:01 | NUR ---
PT BACK FROM CT
[2020-11-14] MEDS ORDERED: thiamine inj. 100 MG in normal saline 100ml IV soln 100 ML IV ONE (22:10)
[2020-11-14] MEDS ORDERED: mag hydrox/Alum hydrox/simeth 30ml oral suspension PO PRN (22:10)
[2020-11-14] MEDS ORDERED: magnesium 2GM in 50ml NS 50 ML IV PRN (22:10)
[2020-11-14] MEDS ORDERED: potassium Cl 20 mEq SR tablet PO PRN ×2 (22:10)
[2020-11-14] MEDS ORDERED: magnesium 4gm in 100ml NS 100 ML IV PRN (22:10)
[2020-11-14] MEDS ORDERED: haloperidol 5mg tablet PO PRN (22:10)
[2020-11-14] MEDS ORDERED: haloperidol lactate 5mg/ml inj IM PRN (22:10)
[2020-11-14] MEDS ORDERED: albuterol 2.5 MG/3 ML nebule NEB PRN (22:10)
[2020-11-14] MEDS ORDERED: morphine 2 MG/ML inj. syringe IV PRN (22:10)
[2020-11-14] MEDS ORDERED: acetaminophen 650mg rectal suppository RC PRN (22:10)
[2020-11-14] MEDS ORDERED: ondansetron/PF 4mg/2ml inj IV PRN (22:10)
[2020-11-14] MEDS ORDERED: ipratropium/albuterol 3ml nebule NEB PRN (22:10)
[2020-11-14] MEDS ORDERED: octreotide inj. 500 MCG in normal saline 100ml IV soln 100 ML IV SCH (22:10)
[2020-11-14] MEDS ORDERED: potassium Cl 40MEQ/1/2NS 520ml 520 ML IV PRN ×2 (22:10)
[2020-11-14] MEDS ORDERED: bisacodyl 10mg suppository rectal RC PRN (22:10)
[2020-11-14] MEDS ORDERED: thiamine 100mg/ml 2ml inj. IV ONE (23:15)
[2020-11-14] MEDS ORDERED: folic acid 1mg/0.2ml inj IV ONE (23:15)
[2020-11-14] MEDS: octreotide inj. 500 MCG in normal saline 100ml IV soln 97.5 ML IV SCH (23:19)
--- NOTE | 2020-11-14 23:56 | NUR ---
just received patient from er. lives creatures been observed on pt
[2020-11-15] VITALS (17 sets, daily range): BP systolic 94–124; BP diastolic 50–83
[2020-11-15] MEDS: morphine 2 MG/ML inj. syringe IV PRN ×4 (00:35→19:59)
[2020-11-15] MEDS: pantoprazole 40MG/NS 100ML BAG 100 ML IV SCH ×6 (00:36→23:00)
[2020-11-15] MEDS: LORazepam 2 mg/ml vial IV PRN ×6 (01:04→22:58)
[2020-11-15 06:21] LABS: MEAN CORPUSCULAR HEMOGLOBIN 33.3 PG (27.0-31.0); MEAN CORPUSCULAR HGB CONC 33.6 g/dL (33.0-36.5); MEAN CORPUSCULAR VOLUME 98.9 FL (78-98); MEAN PLATELET VOLUME 7.3 FL (7.4-10.4); PLATELET COUNT 199 X10'3 (140-440); RED BLOOD COUNT 2.12 X10'6 (4.70-6.10); RED CELL DISTRIBUTION WIDTH 16.5 % (11.5-14.5); WHITE BLOOD COUNT 9.9 X10'3 (4.5-11.0)
[2020-11-15 06:32] LABS: HEMATOCRIT 20.9 % (42.0-52.0)
[2020-11-15 06:41] LABS: ALANINE AMINOTRANSFERASE 31 U/L (12-78); ALBUMIN 2.5 G/DL (3.4-5.0); ALBUMIN/GLOBULIN RATIO 0.7 (1.1-1.5); ALKALINE PHOSPHATASE 82 IU/L (46-116); AMYLASE 88 U/L (25-115); ANION GAP 7 (8-16); ASPARTATE AMINO TRANSFERASE 36 U/L (10-37); BILIRUBIN,TOTAL 0.5 MG/DL (0.1-1.0); BLOOD UREA NITROGEN 19 MG/DL (7-18); BUN/CREATININE RATIO 24.1 (5.4-32.0); CALCIUM 7.7 MG/DL (8.5-10.1); CHLORIDE 99 MMOL/L (99-107); CREATININE 0.79 MG/DL (0.60-1.10); GLUCOSE 123 MG/DL (70-104); LIPASE 194 U/L (73-393); MAGNESIUM 1.9 MG/DL (1.5-2.4); POTASSIUM 4.4 MMOL/L (3.5-5.1); SODIUM 132 MMOL/L (135-145); TOTAL CARBON DIOXIDE 26.5 MMOL/L (24-32); TOTAL PROTEIN 6.3 G/DL (6.4-8.2); eGFR > 90 ML/MIN
[2020-11-15] MEDS: K and/or MAG REPLACEMENT MC SCH ×2 (08:00→20:00)
[2020-11-15] MEDS: folic acid 1mg/0.2ml inj IV SCH (08:03)
[2020-11-15] MEDS: nicotine 21mg patch - 24 hr TD SCH (08:03)
--- NOTE | 2020-11-15 09:22 | NUR ---
Patient resting comfortably in bed after ativan given this morning for tremors . Completed 1 unit PRBC, awaiting post hemoglobin, lab called this am with results of 7.0, but lab kilo patient H/H while infusion transfusing. Awaiting post H/H. Bed locked in lowest position, call light within reach, octreotide and protonix gtt infusing, patient instructed to call for assistance, verbalzied understanding.
[2020-11-15] MEDS: octreotide inj. 500 MCG in normal saline 100ml IV soln 97.5 ML IV SCH (10:06)
[2020-11-15] MEDS ORDERED: Permethrin Cream 60gm TP ONE ×2 (10:45→19:25)
[2020-11-15] MEDS ORDERED: Permethrin 1% 59ml topical rinse TP ONE ×2 (10:45→19:25)
[2020-11-15 11:14] LABS: HEMATOCRIT 27.5 % (42.0-52.0); HEMOGLOBIN 9.4 g/dl (14.0-17.9); MEAN CORPUSCULAR HEMOGLOBIN 32.2 PG (27.0-31.0); MEAN CORPUSCULAR HGB CONC 34.2 g/dL (33.0-36.5); MEAN CORPUSCULAR VOLUME 94.1 FL (78-98); MEAN PLATELET VOLUME 7.2 FL (7.4-10.4); PLATELET COUNT 209 X10'3 (140-440); RED BLOOD COUNT 2.92 X10'6 (4.70-6.10); RED CELL DISTRIBUTION WIDTH 15.9 % (11.5-14.5); WHITE BLOOD COUNT 10.6 X10'3 (4.5-11.0)
[2020-11-15] MEDS ORDERED: MIDAZolam 1 MG/ML 5ML VIAL ONE (14:50)
[2020-11-15] MEDS ORDERED: fentaNYL/PF 50MCG/1 ML 2ML syringe ONE (14:50)
[2020-11-15] MEDS ORDERED: LIDOcaine Viscous 15ml cup ONE (14:50)
--- NOTE | 2020-11-15 15:14 | NUR ---
Patient downstairs for endoscopy, transported by stretcher.
[2020-11-15 19:24] LABS: HEMATOCRIT 23.4 % (42.0-52.0); HEMOGLOBIN 8.1 g/dl (14.0-17.9); MEAN CORPUSCULAR HEMOGLOBIN 32.6 PG (27.0-31.0); MEAN CORPUSCULAR HGB CONC 34.7 g/dL (33.0-36.5); MEAN CORPUSCULAR VOLUME 93.9 FL (78-98); MEAN PLATELET VOLUME 7.3 FL (7.4-10.4); PLATELET COUNT 179 X10'3 (140-440); RED BLOOD COUNT 2.49 X10'6 (4.70-6.10); RED CELL DISTRIBUTION WIDTH 16.2 % (11.5-14.5); WHITE BLOOD COUNT 9.1 X10'3 (4.5-11.0)
[2020-11-15] MEDS: ringers solution, lacted 1,000 ML IV SCH (20:10)
[2020-11-15] MEDS: thiamine inj. 100 MG in normal saline 100ml IV soln 100 ML IV SCH (20:11)
[2020-11-16] VITALS (30 sets, daily range): BP systolic 81–131; BP diastolic 55–81
[2020-11-16] MEDS: LORazepam 2 mg/ml vial IV PRN ×7 (02:00→23:59)
[2020-11-16] MEDS: morphine 2 MG/ML inj. syringe IV PRN ×6 (02:01→20:04)
[2020-11-16] MEDS: pantoprazole 40MG/NS 100ML BAG 100 ML IV SCH ×5 (05:00→21:00)
[2020-11-16] MEDS: ringers solution, lacted 1,000 ML IV SCH ×2 (05:25→16:20)
[2020-11-16 05:44] LABS: ALANINE AMINOTRANSFERASE 26 U/L (12-78); ALBUMIN 2.3 G/DL (3.4-5.0); ALBUMIN/GLOBULIN RATIO 0.7 (1.1-1.5); ALKALINE PHOSPHATASE 75 IU/L (46-116); AMYLASE 106 U/L (25-115); ANION GAP 4 (8-16); ASPARTATE AMINO TRANSFERASE 33 U/L (10-37); BILIRUBIN,TOTAL 0.4 MG/DL (0.1-1.0); BLOOD UREA NITROGEN 14 MG/DL (7-18); BUN/CREATININE RATIO 16.7 (5.4-32.0); CALCIUM 7.8 MG/DL (8.5-10.1); CHLORIDE 101 MMOL/L (99-107); CREATININE 0.84 MG/DL (0.60-1.10); GLUCOSE 106 MG/DL (70-104); LIPASE 331 U/L (73-393); PHOSPHORUS 3.5 MG/DL (2.3-4.5); POTASSIUM 3.8 MMOL/L (3.5-5.1); SODIUM 133 MMOL/L (135-145); TOTAL CARBON DIOXIDE 27.9 MMOL/L (24-32); TOTAL PROTEIN 5.7 G/DL (6.4-8.2); eGFR > 90 ML/MIN
[2020-11-16 05:47] LABS: HEMOGLOBIN 7.5 g/dl (14.0-17.9); MEAN CORPUSCULAR HEMOGLOBIN 33.3 PG (27.0-31.0); MEAN CORPUSCULAR HGB CONC 35.2 g/dL (33.0-36.5); MEAN CORPUSCULAR VOLUME 94.8 FL (78-98); MEAN PLATELET VOLUME 7.3 FL (7.4-10.4); PLATELET COUNT 177 X10'3 (140-440); RED BLOOD COUNT 2.26 X10'6 (4.70-6.10); RED CELL DISTRIBUTION WIDTH 16.5 % (11.5-14.5); WHITE BLOOD COUNT 8.6 X10'3 (4.5-11.0)
[2020-11-16 05:54] LABS: HEMATOCRIT 21.4 % (42.0-52.0)
--- NOTE | 2020-11-16 06:30 | NUR ---
Patient in room ICU 2037. I have received report from JORDY and had the opportunity to ask questions and assume patient care.
[2020-11-16] MEDS: K and/or MAG REPLACEMENT MC SCH ×2 (08:00→19:44)
[2020-11-16] MEDS: folic acid 1mg/0.2ml inj IV SCH (08:00)
[2020-11-16] MEDS: nicotine 21mg patch - 24 hr TD SCH (08:04)
[2020-11-16] MEDS: octreotide inj. 500 MCG in normal saline 100ml IV soln 97.5 ML IV SCH (08:06)
[2020-11-16 09:58] LABS: HEMOGLOBIN 7.4 g/dl (14.0-17.9); MEAN CORPUSCULAR HEMOGLOBIN 32.6 PG (27.0-31.0); MEAN CORPUSCULAR HGB CONC 33.9 g/dL (33.0-36.5); MEAN CORPUSCULAR VOLUME 96.2 FL (78-98); MEAN PLATELET VOLUME 6.9 FL (7.4-10.4); PLATELET COUNT 174 X10'3 (140-440); RED BLOOD COUNT 2.27 X10'6 (4.70-6.10); RED CELL DISTRIBUTION WIDTH 16.8 % (11.5-14.5); WHITE BLOOD COUNT 8.1 X10'3 (4.5-11.0)
[2020-11-16 10:01] LABS: HEMATOCRIT 21.9 % (42.0-52.0)
--- NOTE | 2020-11-16 12:45 | NUR ---
PT found diaphoretic, hypotensive, tachycardic, and lethargic. CBG 147, shallow breathing but breath sounds heard, heart rate regular, bowel tones heard, belly soft. Positioned PT back and stimulated PT. notified and orders received.
[2020-11-16 13:05] LABS: MEAN CORPUSCULAR HEMOGLOBIN 33.2 PG (27.0-31.0); MEAN CORPUSCULAR HGB CONC 34.3 g/dL (33.0-36.5); MEAN CORPUSCULAR VOLUME 96.8 FL (78-98); MEAN PLATELET VOLUME 7.1 FL (7.4-10.4); PLATELET COUNT 217 X10'3 (140-440); RED BLOOD COUNT 1.87 X10'6 (4.70-6.10); RED CELL DISTRIBUTION WIDTH 16.4 % (11.5-14.5); WHITE BLOOD COUNT 9.4 X10'3 (4.5-11.0)
[2020-11-16 13:07] LABS: HEMOGLOBIN 6.2 g/dl (14.0-17.9)
[2020-11-16 13:08] LABS: HEMATOCRIT 18.1 % (42.0-52.0)
[2020-11-16] MEDS ORDERED: normal saline 1000ml 1,000 ML IV SCH (13:15)
[2020-11-16] MEDS ORDERED: LIDOcaine 1%/PF 5ML 10 MG/ML VIAL ONE (14:08)
[2020-11-16] MEDS ORDERED: iohexol 300mg/ml 100ml inj. ONE ×2 (14:09→15:11)
[2020-11-16] MEDS ORDERED: heparin 1,000 UNITS/NS 500ml 500 ML ONE (14:09)
[2020-11-16] MEDS ORDERED: fentaNYL/PF 50MCG/1 ML 2ML syringe ONE (14:44)
[2020-11-16] MEDS ORDERED: midazolam 1 mg/ML 2ml injection ONE (14:44)
[2020-11-16] MEDS ORDERED: glucagon, human recombinant 1mg kit ONE (14:58)
--- NOTE | 2020-11-16 16:07 | NUR ---
I have reviewed and agree with all medications administered and interventions performed by [facility] Student, Ghada Blum.
--- NOTE | 2020-11-16 18:23 | NUR ---
Problems reprioritized. Patient report given, questions answered & plan of care reviewed with RN.
[2020-11-16 18:25] LABS: HEMATOCRIT 22.8 % (42.0-52.0); HEMOGLOBIN 7.8 g/dl (14.0-17.9); MEAN CORPUSCULAR HEMOGLOBIN 31.8 PG (27.0-31.0); MEAN CORPUSCULAR HGB CONC 34.4 g/dL (33.0-36.5); MEAN CORPUSCULAR VOLUME 92.6 FL (78-98); MEAN PLATELET VOLUME 6.9 FL (7.4-10.4); PLATELET COUNT 166 X10'3 (140-440); RED BLOOD COUNT 2.46 X10'6 (4.70-6.10); RED CELL DISTRIBUTION WIDTH 16.5 % (11.5-14.5); WHITE BLOOD COUNT 10.6 X10'3 (4.5-11.0)
[2020-11-16] MEDS: thiamine inj. 100 MG in normal saline 100ml IV soln 100 ML IV SCH (19:43)
[2020-11-16 21:18] LABS: HEMOGLOBIN 7.3 g/dl (14.0-17.9); MEAN CORPUSCULAR HEMOGLOBIN 31.9 PG (27.0-31.0); MEAN CORPUSCULAR HGB CONC 35.5 g/dL (33.0-36.5); MEAN CORPUSCULAR VOLUME 89.9 FL (78-98); PLATELET COUNT 169 X10'3 (140-440); RED CELL DISTRIBUTION WIDTH 16.8 % (11.5-14.5); WHITE BLOOD COUNT 9.7 X10'3 (4.5-11.0)
[2020-11-16 21:24] LABS: HEMATOCRIT 20.7 % (42.0-52.0)
--- NOTE | 2020-11-16 21:35 | NUR ---
Dr Acevedo informed of critical H&H. Repeat H&H in the morning.
[2020-11-17] VITALS (19 sets, daily range): BP systolic 91–138; BP diastolic 47–101
[2020-11-17] MEDS: LORazepam 2 mg/ml vial IV PRN ×2 (01:37→09:05)
[2020-11-17] MEDS: ringers solution, lacted 1,000 ML IV SCH ×3 (01:38→20:05)
[2020-11-17] MEDS: pantoprazole 40MG/NS 100ML BAG 100 ML IV SCH ×3 (01:42→07:56)
[2020-11-17] MEDS: morphine 2 MG/ML inj. syringe IV PRN ×7 (02:28→20:03)
[2020-11-17 06:10] LABS: HEMOGLOBIN 7.3 g/dl (14.0-17.9); MEAN CORPUSCULAR HEMOGLOBIN 32.4 PG (27.0-31.0); MEAN CORPUSCULAR HGB CONC 35.5 g/dL (33.0-36.5); MEAN CORPUSCULAR VOLUME 91.4 FL (78-98); MEAN PLATELET VOLUME 7.1 FL (7.4-10.4); PLATELET COUNT 180 X10'3 (140-440); RED BLOOD COUNT 2.25 X10'6 (4.70-6.10); RED CELL DISTRIBUTION WIDTH 16.6 % (11.5-14.5); WHITE BLOOD COUNT 8.7 X10'3 (4.5-11.0)
[2020-11-17 06:23] LABS: HEMATOCRIT 20.5 % (42.0-52.0)
[2020-11-17 06:30] LABS: GLUCOSE 84 MG/DL (70-104); POTASSIUM 3.4 MMOL/L (3.5-5.1); SODIUM 134 MMOL/L (135-145)
[2020-11-17 06:31] LABS: ALANINE AMINOTRANSFERASE 23 U/L (12-78); ALBUMIN/GLOBULIN RATIO 0.6 (1.1-1.5); ALKALINE PHOSPHATASE 64 IU/L (46-116); AMYLASE 130 U/L (25-115); ANION GAP 6 (8-16); ASPARTATE AMINO TRANSFERASE 26 U/L (10-37); BILIRUBIN,TOTAL 0.3 MG/DL (0.1-1.0); BLOOD UREA NITROGEN 16 MG/DL (7-18); BUN/CREATININE RATIO 23.9 (5.4-32.0); CALCIUM 7.6 MG/DL (8.5-10.1); CHLORIDE 102 MMOL/L (99-107); CREATININE 0.67 MG/DL (0.60-1.10); LIPASE 424 U/L (73-393); MAGNESIUM 1.9 MG/DL (1.5-2.4); PHOSPHORUS 2.8 MG/DL (2.3-4.5); TOTAL CARBON DIOXIDE 26.3 MMOL/L (24-32); TOTAL PROTEIN 5.2 G/DL (6.4-8.2); eGFR > 90 ML/MIN
--- NOTE | 2020-11-17 06:31 | NUR ---
Dr. Decker called with critical value of hct 20.5, Hgb 7.3. No new orders.
[2020-11-17] MEDS: K and/or MAG REPLACEMENT MC SCH ×2 (06:42→20:00)
[2020-11-17] MEDS: folic acid 1mg/0.2ml inj IV SCH (07:12)
[2020-11-17] MEDS: nicotine 21mg patch - 24 hr TD SCH (07:12)
[2020-11-17 10:41] LABS: HEMOGLOBIN 7.5 g/dl (14.0-17.9); MEAN CORPUSCULAR HEMOGLOBIN 32.2 PG (27.0-31.0); MEAN CORPUSCULAR HGB CONC 34.7 g/dL (33.0-36.5); MEAN CORPUSCULAR VOLUME 92.8 FL (78-98); MEAN PLATELET VOLUME 6.9 FL (7.4-10.4); PLATELET COUNT 189 X10'3 (140-440); RED BLOOD COUNT 2.32 X10'6 (4.70-6.10); WHITE BLOOD COUNT 9.1 X10'3 (4.5-11.0)
[2020-11-17 10:48] LABS: HEMATOCRIT 21.5 % (42.0-52.0)
[2020-11-17] MEDS: pantoprazole 40 MG vial IV SCH ×2 (14:37→20:03)
[2020-11-17 15:28] LABS: HEMOGLOBIN 7.3 g/dl (14.0-17.9); MEAN CORPUSCULAR HEMOGLOBIN 31.6 PG (27.0-31.0); MEAN CORPUSCULAR HGB CONC 33.9 g/dL (33.0-36.5); MEAN CORPUSCULAR VOLUME 93.3 FL (78-98); MEAN PLATELET VOLUME 6.9 FL (7.4-10.4); PLATELET COUNT 187 X10'3 (140-440); RED BLOOD COUNT 2.31 X10'6 (4.70-6.10); RED CELL DISTRIBUTION WIDTH 17.1 % (11.5-14.5); WHITE BLOOD COUNT 8.8 X10'3 (4.5-11.0)
[2020-11-17 15:32] LABS: HEMATOCRIT 21.5 % (42.0-52.0)
--- NOTE | 2020-11-17 16:15 | NUR ---
I have reviewed and agree with all medications administered and interventions performed by [facility] Student, Ghada Blum.
--- NOTE | 2020-11-17 16:49 | NUR ---
Problems reprioritized. Patient report given, questions answered & plan of care reviewed with Liane Massey.
--- NOTE | 2020-11-17 18:12 | NUR ---
Pt transferred to 3009 with belongings. Meds brought to PCU and placed in pt specific. Pt transferred in stable condition.
--- NOTE | 2020-11-17 18:19 | NUR ---
Problems reprioritized. Patient report given, questions answered & plan of care reviewed with KATE Walker.
[2020-11-17] MEDS: thiamine inj. 100 MG in normal saline 100ml IV soln 100 ML IV SCH (20:04)
[2020-11-17 21:55] LABS: MEAN CORPUSCULAR HEMOGLOBIN 32.2 PG (27.0-31.0); MEAN CORPUSCULAR VOLUME 91.9 FL (78-98); MEAN PLATELET VOLUME 6.9 FL (7.4-10.4); PLATELET COUNT 193 X10'3 (140-440); RED BLOOD COUNT 2.13 X10'6 (4.70-6.10); RED CELL DISTRIBUTION WIDTH 17.1 % (11.5-14.5); WHITE BLOOD COUNT 7.5 X10'3 (4.5-11.0)
[2020-11-17 22:01] LABS: HEMATOCRIT 19.6 % (42.0-52.0); HEMOGLOBIN 6.9 g/dl (14.0-17.9)
[2020-11-17] MEDS: LORazepam 1 MG tablet PO PRN (22:44)
[2020-11-18] VITALS (30 sets, daily range): BP systolic 80–115; BP diastolic 44–73
[2020-11-18] MEDS: morphine 2 MG/ML inj. syringe IV PRN ×4 (04:45→22:06)
--- NOTE | 2020-11-18 06:49 | NUR ---
Patient in room PCU 3009. I have received report from Aaron LOVE and had the opportunity to ask questions and assume patient care.
[2020-11-18] MEDS: ringers solution, lacted 1,000 ML IV SCH ×3 (07:45→21:37)
[2020-11-18] MEDS: LORazepam 1 MG tablet PO PRN ×3 (07:46→21:36)
[2020-11-18] MEDS: folic acid 1mg/0.2ml inj IV SCH (07:46)
[2020-11-18] MEDS: pantoprazole 40 MG vial IV SCH (07:46)
[2020-11-18] MEDS: nicotine 21mg patch - 24 hr TD SCH (07:50)
[2020-11-18] MEDS: K and/or MAG REPLACEMENT MC SCH ×2 (08:00→20:09)
[2020-11-18 10:15] LABS: MEAN CORPUSCULAR HEMOGLOBIN 32.4 PG (27.0-31.0); MEAN CORPUSCULAR HGB CONC 35.4 g/dL (33.0-36.5); MEAN CORPUSCULAR VOLUME 91.5 FL (78-98); MEAN PLATELET VOLUME 6.9 FL (7.4-10.4); PLATELET COUNT 204 X10'3 (140-440); RED BLOOD COUNT 2.02 X10'6 (4.70-6.10); RED CELL DISTRIBUTION WIDTH 15.7 % (11.5-14.5); WHITE BLOOD COUNT 7.9 X10'3 (4.5-11.0)
[2020-11-18 10:30] LABS: HEMATOCRIT 18.5 % (42.0-52.0); HEMOGLOBIN 6.5 g/dl (14.0-17.9)
[2020-11-18 10:35] LABS: ALANINE AMINOTRANSFERASE 17 U/L (12-78); ALBUMIN 1.6 G/DL (3.4-5.0); ALBUMIN/GLOBULIN RATIO 0.6 (1.1-1.5); ALKALINE PHOSPHATASE 50 IU/L (46-116); AMYLASE 98 U/L (25-115); ANION GAP 6 (8-16); ASPARTATE AMINO TRANSFERASE 23 U/L (10-37); BILIRUBIN,TOTAL 0.3 MG/DL (0.1-1.0); BLOOD UREA NITROGEN 11 MG/DL (7-18); BUN/CREATININE RATIO 14.1 (5.4-32.0); CALCIUM 7.2 MG/DL (8.5-10.1); CHLORIDE 106 MMOL/L (99-107); CREATININE 0.78 MG/DL (0.60-1.10); GLUCOSE 108 MG/DL (70-104); LIPASE 279 U/L (73-393); MAGNESIUM 1.6 MG/DL (1.5-2.4); POTASSIUM 3.7 MMOL/L (3.5-5.1); SODIUM 138 MMOL/L (135-145); TOTAL CARBON DIOXIDE 25.7 MMOL/L (24-32); TOTAL PROTEIN 4.4 G/DL (6.4-8.2); eGFR > 90 ML/MIN
--- NOTE | 2020-11-18 10:39 | NUR ---
Paged Dr. Joya. [place]. 3009. Critical H&H 6.5/18.5. 2 units being made by blood bank now. Please advise. King [phone]
[2020-11-18] MEDS ORDERED: heparin sodium, porcine/PF 100unit/ml 5ML syringe ONE (12:52)
--- NOTE | 2020-11-18 16:51 | NUR ---
Paged Dr. Joya. [place]. 3084. Patient is back from [facility], giving 2nd unit. Patient BP has been 81/51. Getting LR@100 now. King [phone]
--- NOTE | 2020-11-18 17:38 | NUR ---
Paged Dr. Joya. [place]. 8837. FYI patient just reported that he had a bloody stool today, but he flushed it so I did not see it. He said it was dark red. King [phone]
--- NOTE | 2020-11-18 18:28 | NUR ---
Problems reprioritized. Patient report given, questions answered & plan of care reviewed with Paramjit LOVE.
[2020-11-18 19:03] LABS: MEAN CORPUSCULAR HEMOGLOBIN 32.7 PG (27.0-31.0); MEAN CORPUSCULAR HGB CONC 34.6 g/dL (33.0-36.5); MEAN CORPUSCULAR VOLUME 94.5 FL (78-98); MEAN PLATELET VOLUME 7.2 FL (7.4-10.4); PLATELET COUNT 185 X10'3 (140-440); RED BLOOD COUNT 1.97 X10'6 (4.70-6.10); WHITE BLOOD COUNT 7.9 X10'3 (4.5-11.0)
[2020-11-18 19:09] LABS: HEMATOCRIT 18.6 % (42.0-52.0); HEMOGLOBIN 6.4 g/dl (14.0-17.9)
[2020-11-18] MEDS ORDERED: sodium chloride 0.45% 1,000 ML IV ONE (19:30)
[2020-11-18] MEDS ORDERED: normal saline 500ml IV soln 500 ML IV ONE (19:55)
[2020-11-18] MEDS: thiamine inj. 100 MG in normal saline 100ml IV soln 100 ML IV SCH (19:57)
[2020-11-18] MEDS ORDERED: iohexol 300mg/ml 100ml inj. ONE (20:13)
--- NOTE | 2020-11-18 20:27 | NUR ---
received patient sitting up on bed alert,oriented x4 complain of pain BP 70/56 HH [address] Meier for order he order 2 units of prbc and 1 unit of FFP to transfused stat 500ml nss bolus to increase blood presure,protonix 40mg drip,NGTube and CT scan abdomen with contrast,transfer to ICU charge nurse alireza hdz.
--- NOTE | 2020-11-18 20:43 | NUR ---
patient transferred to ICU report given to NHI LOVE
[2020-11-18] MEDS: pantoprazole 40MG/NS 100ML BAG 100 ML IV SCH (21:36)
[2020-11-18] MEDS ORDERED: LORazepam 1 MG tablet PO PRN (22:10)
[2020-11-18] MEDS ORDERED: LORazepam 2 mg/ml vial IV PRN (22:10)
--- NOTE | 2020-11-18 22:44 | NUR ---
Pt to room 2040, walked from wheelchair to bed, Systolic blood pressures over 100. An NG tube was placed at put to suction, lavaged. Clear, pink tinged, some mucus but no blood, maninder or otherwise. Dr Rodriguez at bedside, no surgery tonight, plan to scope again in AM, okay to take out NGT because of pt so uncomfortable with it. Pt using commode with minimal stand by assist for wires, small Tarry stool noted. Pain meds given as requested. 20G PIV placed in Right Forearm to run protonix while giving blood. First of 2 units running, will get an FFP as well. Dr Pérez saw pt with Tele monitor, okay to DC LR main line IV fluid. Report given to Juvenal LOVE for continued shift care.
[2020-11-19] VITALS (34 sets, daily range): BP systolic 77–159; BP diastolic 44–106
[2020-11-19] MEDS: morphine 2 MG/ML inj. syringe IV PRN ×5 (00:17→10:11)
[2020-11-19] MEDS: pantoprazole 40MG/NS 100ML BAG 100 ML IV SCH ×5 (01:00→23:45)
--- NOTE | 2020-11-19 01:51 | NUR ---
1 hour Post blood transfusion H&H suppose to be ordered at 0200. Due to time change, H&H ordered for 0300.
[2020-11-19 03:49] LABS: HEMATOCRIT 22.6 % (42.0-52.0); HEMOGLOBIN 7.7 g/dl (14.0-17.9); MEAN CORPUSCULAR HEMOGLOBIN 31.2 PG (27.0-31.0); MEAN CORPUSCULAR HGB CONC 33.9 g/dL (33.0-36.5); MEAN CORPUSCULAR VOLUME 91.9 FL (78-98); MEAN PLATELET VOLUME 7.1 FL (7.4-10.4); PLATELET COUNT 164 X10'3 (140-440); RED BLOOD COUNT 2.46 X10'6 (4.70-6.10); RED CELL DISTRIBUTION WIDTH 16.7 % (11.5-14.5); WHITE BLOOD COUNT 7.4 X10'3 (4.5-11.0)
[2020-11-19 04:06] LABS: ALANINE AMINOTRANSFERASE 18 U/L (12-78); ALBUMIN 1.7 G/DL (3.4-5.0); ALBUMIN/GLOBULIN RATIO 0.6 (1.1-1.5); ALKALINE PHOSPHATASE 45 IU/L (46-116); AMYLASE 104 U/L (25-115); ANION GAP 5 (8-16); ASPARTATE AMINO TRANSFERASE 22 U/L (10-37); BILIRUBIN,TOTAL 0.2 MG/DL (0.1-1.0); BLOOD UREA NITROGEN 16 MG/DL (7-18); BUN/CREATININE RATIO 21.1 (5.4-32.0); CALCIUM 7.3 MG/DL (8.5-10.1); CHLORIDE 107 MMOL/L (99-107); CREATININE 0.76 MG/DL (0.60-1.10); GLUCOSE 81 MG/DL (70-104); LIPASE 271 U/L (73-393); MAGNESIUM 1.6 MG/DL (1.5-2.4); PHOSPHORUS 3.5 MG/DL (2.3-4.5); POTASSIUM 3.5 MMOL/L (3.5-5.1); SODIUM 138 MMOL/L (135-145); TOTAL CARBON DIOXIDE 25.6 MMOL/L (24-32); TOTAL PROTEIN 4.4 G/DL (6.4-8.2); eGFR > 90 ML/MIN
--- NOTE | 2020-11-19 06:00 | NUR ---
Patient in room ICU 2040. I have received report from Juvenal LOVE and had the opportunity to ask questions and assume patient care.
[2020-11-19] MEDS: K and/or MAG REPLACEMENT MC SCH ×2 (07:41→20:00)
[2020-11-19] MEDS: nicotine 21mg patch - 24 hr TD SCH (07:49)
--- NOTE | 2020-11-19 09:30 | NUR ---
Spoke with brother Juan over the phone and updated him on pts condition.
[2020-11-19] MEDS: folic acid 1mg/0.2ml inj IV SCH (09:55)
--- NOTE | 2020-11-19 10:01 | NUR ---
Informed Dr. Cohen that pt will get O+ blood instead of O- blood due to shortage.
--- NOTE | 2020-11-19 10:12 | NUR ---
Initial: Pt admit DX UGIB r/t large duodenal ulcer s/p GDA embolization, etoh abuse receiving thiamin/folic acid, and acute blood loss anemia per EMR. PO 100% clear liquids diet since 11/17 PM advanced to full liquid diet last night but made NPO since midnight 11/19 per MD order. Pt reports is hungry and wanting food per MD note. LBM 11/18 small black diarrhea w/ CT abdomen/pelvis showing moderate stool burden per imaging note. Will monitor for diet advancement and additional protein/kcal needs this admit. Rec: 1. advance diet as medically indicated to regular 2. monitor for ONS needs pending further PO hx and diet advancement 3. thiamin, folic acid for etoh hx 4. bowel care per rx 5. scaled wt this admit Addendum: 11/19/20 at [address] Amended: Links added.
[2020-11-19] MEDS ORDERED: LIDOcaine Viscous 15ml cup ONE (13:31)
[2020-11-19] MEDS ORDERED: fentaNYL/PF 50MCG/1 ML 2ML syringe ONE ×3 (13:31→18:31)
[2020-11-19] MEDS ORDERED: MIDAZolam 1 MG/ML 5ML VIAL ONE ×2 (13:31→17:53)
[2020-11-19 13:55] LABS: HEMATOCRIT 25.2 % (42.0-52.0); HEMOGLOBIN 8.5 g/dl (14.0-17.9); MEAN CORPUSCULAR HEMOGLOBIN 30.7 PG (27.0-31.0); MEAN CORPUSCULAR HGB CONC 33.9 g/dL (33.0-36.5); MEAN CORPUSCULAR VOLUME 90.8 FL (78-98); MEAN PLATELET VOLUME 6.9 FL (7.4-10.4); PLATELET COUNT 191 X10'3 (140-440); RED BLOOD COUNT 2.77 X10'6 (4.70-6.10); WHITE BLOOD COUNT 8.2 X10'3 (4.5-11.0)
--- NOTE | 2020-11-19 15:09 | NUR ---
Pt getting EGD at bedside with Dr. Das at this time.
--- NOTE | 2020-11-19 15:45 | NUR ---
Informed Dr. Cohen of EGD results and that Dr. Das is recommending surgery, also informed MD of low BP and doesnt have any IV fluids running. MD ordered vasopressin and did not order any IV fluids.
[2020-11-19] MEDS ORDERED: vasopressin inj. 40 UNIT in normal saline 50ml IV soln 38 ML IV SCH ×2 (15:50→17:30)
--- NOTE | 2020-11-19 16:30 | NUR ---
Spoke with pts brother Eduardo over the phone and gave him update on patients condition.
[2020-11-19] MEDS ORDERED: LIDOcaine 1% (10mg/ml) 2ml vial ONE (16:47)
[2020-11-19] MEDS ORDERED: ceFOXitin sod/dextrose 2g/50ml 50 ML IV ONE (17:10)
[2020-11-19] MEDS ORDERED: ceFOXitin 2GM-NS 100mL ADDvant 100 ML IV ONE (17:10)
[2020-11-19] MEDS ORDERED: LIDOcaine 2% (20mg/ml) 5ml vial ONE (17:15)
[2020-11-19] MEDS ORDERED: rocuronium 10mg/ml inj IV ONE ×3 (17:15→20:53)
[2020-11-19] MEDS ORDERED: propofol inj 20 ML IV ONE (17:15)
[2020-11-19] MEDS ORDERED: morphine 4 MG/ML inj SYRINge IV PRN (17:30)
[2020-11-19] MEDS ORDERED: labetalol 20mg/4ml (5mg/ml) syringe IV PRN (17:30)
[2020-11-19] MEDS ORDERED: hydrALAZINE 20mg/ml inj. IV PRN ×2 (17:30→22:15)
[2020-11-19] MEDS ORDERED: fentaNYL/PF 50MCG/1 ML 2ML syringe IV PRN ×3 (17:30)
[2020-11-19] MEDS ORDERED: ondansetron/PF 4mg/2ml inj IV PRN ×2 (17:30→19:25)
[2020-11-19] MEDS ORDERED: ringers solution, lacted 1,000 ML IV SCH ×2 (17:30→19:25)
[2020-11-19] MEDS ORDERED: sevoflurane 250ml liquid IH ONE (17:39)
[2020-11-19] MEDS ORDERED: NORepinephrine 8 MG in NS 250 ML BAG (32 mcg/ml) IV ONE (17:39)
[2020-11-19] MEDS ORDERED: vasoPRESSIN 20 units/ml inj. ONE (17:39)
[2020-11-19] MEDS ORDERED: dexamethasone sod phosphate 10mg/ml inj ONE (17:39)
--- NOTE | 2020-11-19 17:41 | NUR ---
Patient report given to OR nurse Adriana LOVE.
--- NOTE | 2020-11-19 17:51 | NUR ---
Patient taken to OR.
[2020-11-19] MEDS ORDERED: albumin (Human) 5% 250ml 500 ML IV ONE (18:05)
--- NOTE | 2020-11-19 18:12 | NUR ---
Problems reprioritized. Patient report given, questions answered & plan of care reviewed with Ania LOVE.
--- NOTE | 2020-11-19 18:17 | NUR ---
I have received report from KATE Juan and had the opportunity to ask questions and assume patient care. Patient is currently in the OR.
[2020-11-19] MEDS ORDERED: albumin (Human) 5% 250ml 750 ML IV ONE (18:23)
[2020-11-19] MEDS ORDERED: albumin (Human) 5% 250ml 250 ML IV ONE ×2 (18:28)
[2020-11-19] MEDS ORDERED: ceFOXitin 1000 MG inj ONE (18:30)
[2020-11-19] MEDS ORDERED: ondansetron/PF 4mg/2ml inj ONE (18:45)
[2020-11-19] MEDS: NORepinephrine 8mg/ 250ml NS 250 ML IV SCH (19:05)
[2020-11-19] MEDS ORDERED: NORepinephrine inj. 8 MG in normal saline 250ml IV soln 242 ML IV SCH (19:25)
[2020-11-19] MEDS ORDERED: MIDAZolam inj 50 MG in normal saline 50ml IV soln 40 ML IV SCH (19:25)
[2020-11-19 19:51] LABS: ABG BASE EXCESS -4.5 mmol/L (-2.0-2.0); ABG HCO3 20.9 mmol/L (22.0-26.0); ABG OXYGEN SATURATION 98.6 % (94-97); ABG PCO2 (T) 37.8 mmHg (35.0-48.0); ABG PO2 (T) 198.7 mmHg (75.0-100.0); FCOHb 0.1 % (0.0-3.9); FMetHb 0.7 % (0.0-1.5); FO2Hb 97.8 % (94-97); TOTAL HEMOGLOBIN 6.5 G/dl (14.0-18.0)
[2020-11-19] MEDS: thiamine inj. 100 MG in normal saline 100ml IV soln 100 ML IV SCH (20:00)
--- NOTE | 2020-11-19 21:38 | NUR ---
Patient back to room 2040 from OR via bed with OR team in attendance. Dr. Rodriguez and Dr. Harris at bedside. Report from OR nurses and . Orders to keep patient sedated and comfortable tonight. See Medication order and [facility] nursing order placed. Patient is not to be extubated. The NG tube is not to be moved or removed, per Dr. Rodriguez. If bleeding is noted from NG tube - call Dr. Rodriguez. NG tube to be placed to low intermittent suction. Blood pressure is to be maintain with systolic less than 130. Patient is on the ventilator FiO2 60%. PEEP of 5 tidal volume 650 ml. rate of 12. ventilator mode SIMV volume control. 7.0 ET tube secured at 24cm at the teeth. Patient surgical dressings are clean dry and intact. LISSY drain present to right abdomen. Arterial line to left radial artery, line is zeroed and transduced. CVP line zeroed and transduced.
[2020-11-19] MEDS: midazolam 100mg in NS 100ml 100 ML IV SCH (21:40)
[2020-11-19] MEDS: FENTANYL-0.9 % NACL/PF 100 ML IV PRN (22:42)
[2020-11-19 22:56] LABS: BASOPHILS % (AUTO) 0.5 % (0-1); EOSINOPHILS % (AUTO) 0.3 % (0-6); LYMPHOCYTES # (AUTO) 0.4 X10'3 (1.1-4.8); LYMPHOCYTES % (AUTO) 8.4 % (21-51); MEAN CORPUSCULAR HEMOGLOBIN 31.2 PG (27.0-31.0); MEAN CORPUSCULAR HGB CONC 34.2 g/dL (33.0-36.5); MEAN CORPUSCULAR VOLUME 91.2 FL (78-98); MEAN PLATELET VOLUME 6.7 FL (7.4-10.4); MONOCYTES # (AUTO) 0.4 X10'3 (0-0.9); MONOCYTES % (AUTO) 9.4 % (2-12); NEUTROPHILS # (AUTO) 3.5 X10'3 (1.8-7.7); NEUTROPHILS % (AUTO) 81.4 % (42-75); PLATELET COUNT 130 X10'3 (140-440); RED BLOOD COUNT 2.02 X10'6 (4.70-6.10); RED CELL DISTRIBUTION WIDTH 14.8 % (11.5-14.5); WHITE BLOOD COUNT 4.3 X10'3 (4.5-11.0)
[2020-11-19 22:59] LABS: HEMOGLOBIN 6.3 g/dl (14.0-17.9)
[2020-11-19 23:00] LABS: HEMATOCRIT 18.5 % (42.0-52.0)
[2020-11-19 23:02] LABS: PARTIAL THROMBOPLASTIN TIME 33 SECONDS (22-32)
[2020-11-19 23:03] LABS: ALANINE AMINOTRANSFERASE 22 U/L (12-78); ALBUMIN 2.3 G/DL (3.4-5.0); ALBUMIN/GLOBULIN RATIO 1.4 (1.1-1.5); ALKALINE PHOSPHATASE 27 IU/L (46-116); ANION GAP 6 (8-16); ASPARTATE AMINO TRANSFERASE 27 U/L (10-37); BILIRUBIN,TOTAL 0.8 MG/DL (0.1-1.0); BLOOD UREA NITROGEN 14 MG/DL (7-18); BUN/CREATININE RATIO 22.2 (5.4-32.0); CALCIUM 6.4 MG/DL (8.5-10.1); CHLORIDE 112 MMOL/L (99-107); CREATININE 0.63 MG/DL (0.60-1.10); GLUCOSE 204 MG/DL (70-104); MAGNESIUM 1.3 MG/DL (1.5-2.4); PHOSPHORUS 3.3 MG/DL (2.3-4.5); POTASSIUM 3.5 MMOL/L (3.5-5.1); SODIUM 139 MMOL/L (135-145); TOTAL CARBON DIOXIDE 21.3 MMOL/L (24-32); TOTAL PROTEIN 3.9 G/DL (6.4-8.2); eGFR > 90 ML/MIN
[2020-11-19] MEDS ORDERED: propofol 1000mg/100ml bottle 100 ML IV ONE (23:10)
[2020-11-19] MEDS ORDERED: CALCIUM GLUC 1gm/50ml NACL,iso 100 ML IV ONE (23:10)
--- NOTE | 2020-11-19 23:10 | NUR ---
Phone call to Dr. Pérez Re: Hgb 6.3 Hct 18.5 post op. Order for 1 unit PRBC now, 1 gram Calcium Gluconate IV Now. informed that patient is at max dose on fentanyl and versed drips, also that patient required treatment for hypertension. Order for Propofol drip IV per protocol in addition to current sedation orders.
[2020-11-19] MEDS: propofol 1000mg/100ml bottle 100 ML IV SCH (23:46)
[2020-11-20] VITALS (26 sets, daily range): BP systolic 74–133; BP diastolic 41–70
[2020-11-20] MEDS ORDERED: magnesium 2GM in 50ml NS 50 ML IV PRN (00:05)
[2020-11-20] MEDS ORDERED: magnesium 4gm in 100ml NS 100 ML IV PRN (00:05)
[2020-11-20] MEDS: piperacillin/tazo 3.375gm/50ml 50 ML IV SCH ×4 (00:54→15:07)
[2020-11-20] MEDS: pantoprazole 40MG/NS 100ML BAG 100 ML IV SCH ×5 (01:00→21:08)
[2020-11-20] MEDS: FENTANYL-0.9 % NACL/PF 100 ML IV PRN ×7 (02:22→21:08)
[2020-11-20] MEDS ORDERED: midazolam 1 mg/ML 2ml injection IV PRN ×2 (02:40→02:55)
[2020-11-20 03:20] LABS: ABG BASE EXCESS -6.6 mmol/L (-2.0-2.0); ABG HCO3 17.5 mmol/L (22.0-26.0); ABG OXYGEN SATURATION 98.7 % (94-97); ABG PCO2 (T) 29.8 mmHg (35.0-48.0); ABG PO2 (T) 201.1 mmHg (75.0-100.0); FCOHb 0.2 % (0.0-3.9); FMetHb 0.8 % (0.0-1.5); FO2Hb 97.7 % (94-97); PATIENT TEMPERATURE 37.2; PEEP 5 cm H2O; RESPIRATORY RATE 12 b/min; TIDAL VOLUME 650 mL; TOTAL HEMOGLOBIN 7.4 G/dl (14.0-18.0)
[2020-11-20] MEDS: midazolam 100mg in NS 100ml 100 ML IV SCH ×5 (03:50→23:06)
[2020-11-20 04:30] LABS: BASOPHILS % (AUTO) 0.3 % (0-1); EOSINOPHILS % (AUTO) 0 % (0-6); HEMATOCRIT 22.8 % (42.0-52.0); HEMOGLOBIN 7.7 g/dl (14.0-17.9); LYMPHOCYTES # (AUTO) 0.3 X10'3 (1.1-4.8); LYMPHOCYTES % (AUTO) 2.1 % (21-51); MEAN CORPUSCULAR HEMOGLOBIN 30.1 PG (27.0-31.0); MEAN CORPUSCULAR VOLUME 88.6 FL (78-98); MEAN PLATELET VOLUME 6.9 FL (7.4-10.4); MONOCYTES # (AUTO) 1.4 X10'3 (0-0.9); MONOCYTES % (AUTO) 10.8 % (2-12); NEUTROPHILS # (AUTO) 10.9 X10'3 (1.8-7.7); NEUTROPHILS % (AUTO) 86.8 % (42-75); PLATELET COUNT 145 X10'3 (140-440); RED BLOOD COUNT 2.57 X10'6 (4.70-6.10); RED CELL DISTRIBUTION WIDTH 15.8 % (11.5-14.5); WHITE BLOOD COUNT 12.6 X10'3 (4.5-11.0)
[2020-11-20 04:36] LABS: ALANINE AMINOTRANSFERASE 21 U/L (12-78); ALBUMIN 2.2 G/DL (3.4-5.0); ALBUMIN/GLOBULIN RATIO 1.2 (1.1-1.5); ALKALINE PHOSPHATASE 29 IU/L (46-116); ANION GAP 9 (8-16); ASPARTATE AMINO TRANSFERASE 26 U/L (10-37); BILIRUBIN,TOTAL 0.6 MG/DL (0.1-1.0); BLOOD UREA NITROGEN 12 MG/DL (7-18); CALCIUM 6.6 MG/DL (8.5-10.1); CHLORIDE 113 MMOL/L (99-107); GLUCOSE 150 MG/DL (70-104); MAGNESIUM 2.1 MG/DL (1.5-2.4); PHOSPHORUS 4.2 MG/DL (2.3-4.5); POTASSIUM 3.5 MMOL/L (3.5-5.1); SODIUM 143 MMOL/L (135-145); TOTAL CARBON DIOXIDE 21.1 MMOL/L (24-32); TRIGLYCERIDES 34 MG/DL (20-135); eGFR > 90 ML/MIN
--- NOTE | 2020-11-20 06:00 | NUR ---
Patient in room ICU 2040. I have received report from Ania LOVE and had the opportunity to ask questions and assume patient care.
--- NOTE | 2020-11-20 06:17 | NUR ---
Problems reprioritized. Patient report given, questions answered & plan of care reviewed with KATE Juan.
[2020-11-20] MEDS: folic acid 1mg/0.2ml inj IV SCH (07:14)
[2020-11-20] MEDS: nicotine 21mg patch - 24 hr TD SCH (07:15)
[2020-11-20] MEDS: K and/or MAG REPLACEMENT MC SCH ×2 (07:24→20:00)
[2020-11-20] MEDS ORDERED: normal saline 1000ml 1,000 ML IV ONE (10:15)
[2020-11-20] MEDS: NORepinephrine 8mg/ 250ml NS 250 ML IV SCH ×3 (11:33→21:11)
[2020-11-20] MEDS: propofol 1000mg/100ml bottle 100 ML IV SCH (11:40)
[2020-11-20] MEDS: normal saline 1000ml 1,000 ML IV SCH ×3 (11:57→17:59)
[2020-11-20] MEDS ORDERED: calcium chloride 100 MG/1 ML inj IV ONE (12:10)
--- NOTE | 2020-11-20 12:16 | NUR ---
Reassessment: Pt intubated s/p OR for recurrent large duodenal ulcer bleed s/p ligation of bleeding ulcer, antrectomy, truncal vagotomy, and carin-en-y for concerns of gastric outlet obstruction w/ narrowing distal duodenum per surgeon note. Receiving thiamin, folic for etoh hx. Currently on bed bugs/lice precautions since admit as well since per RN. LBM 11/18 prior to OR per EMR. Pt NPO post-op w/ MAP 69 this AM. NS at 150ml/hr to start today on top of fluid bolus per MD; EN recs below in case prolonged intubation. Pt would benefit from carin-en-y/dumping syndrome MNT review once stable and appropriate following extubation post-op. Will continue to monitor. Rec: 1. IF TF; Vital AF at 75ml/hr goal 2. IF TF; water flush 200ml Q4 3. IF TF; PALB Q /; daily wts 4. thiamin, folic acid for etoh hx 5. routine bowel care; consider opioid antagonist if MD agreeable since receiving opioids post-op 6. scaled wt this admit 7. upon extubation; advance diet as medically indicated to heart healthy 8. carin-en-y/dumping syndrome diet eds once stable/appropriate following extubation this admit Addendum: 11/20/20 at [address] Amended: Links added.
--- NOTE | 2020-11-20 14:20 | NUR ---
TPN Consult: TPN to start today per android platform developer r/t NPO pre-op and anticipated NPO post-op per RN today. PN recs below; will monitor for PN tolerance. Dex loading using current wt though rest of PN recs using IBW as no scaled wt this admit. IF pt has functional gut w/ GI intact consider EN as medically indicated. Rec: 1. TPN per MD using 3:1 Clinimix E 5/20 1L bag w/ 50ml 20% intralipids at 95ml/hr goal; to provide 2280ml volume, 109g AA, 434g DEX(3.72mg/kg/min), and 2132 total kcals. 2. TG/PALB Q /; daily wts 3. monitor for PN tolerance and signs of refeeding 4. IF TF; Vital AF at 75ml/hr goal w/ water flush 200ml Q4 5. thiamin, folic acid for etoh hx 6. bowel care per rx; consider opioid antagonist if MD agreeable since receiving opioids post-op 7. scaled wt this admit 8. upon extubation; advance diet as medically indicated to heart healthy 9. carin-en-y/dumping syndrome diet eds once stable/appropriate following extubation this admit Addendum: 11/20/20 at [address] Amended: Links added.
[2020-11-20] MEDS ORDERED: Dextrose 10%-water IV solution 1,000 ML IV PRN (14:50)
--- NOTE | 2020-11-20 18:19 | NUR ---
Problems reprioritized. Patient report given, questions answered & plan of care reviewed with Glenn LOVE.
[2020-11-20] MEDS: thiamine inj. 100 MG in normal saline 100ml IV soln 100 ML IV SCH (20:00)
[2020-11-20] MEDS: [UNRECOGNIZED DRUG - REMARK] IV SCH ×5 (20:36)
[2020-11-20] MEDS: lactobacillus rhamnosus 10,000 MMU CELLS/CAPSULE PO SCH (22:21)
[2020-11-21] VITALS (29 sets, daily range): BP systolic 82–140; BP diastolic 47–81
[2020-11-21] MEDS: piperacillin/tazo 3.375gm/50ml 50 ML IV SCH ×4 (02:10→23:12)
[2020-11-21] MEDS: pantoprazole 40MG/NS 100ML BAG 100 ML IV SCH ×3 (02:10→11:00)
[2020-11-21] MEDS: NORepinephrine 8mg/ 250ml NS 250 ML IV SCH ×2 (02:12→06:56)
[2020-11-21 03:40] LABS: BASOPHILS # (AUTO) 0.1 X10'3 (0-0.2); BASOPHILS % (AUTO) 0.5 % (0-1); EOSINOPHILS # (AUTO) 0.1 X10'3 (0-0.9); EOSINOPHILS % (AUTO) 0.4 % (0-6); HEMOGLOBIN 7.3 g/dl (14.0-17.9); LYMPHOCYTES # (AUTO) 1.1 X10'3 (1.1-4.8); LYMPHOCYTES % (AUTO) 7.3 % (21-51); MEAN CORPUSCULAR HEMOGLOBIN 30.5 PG (27.0-31.0); MEAN CORPUSCULAR HGB CONC 33.9 g/dL (33.0-36.5); MEAN CORPUSCULAR VOLUME 89.9 FL (78-98); MEAN PLATELET VOLUME 7.3 FL (7.4-10.4); MONOCYTES # (AUTO) 2.4 X10'3 (0-0.9); NEUTROPHILS # (AUTO) 11.2 X10'3 (1.8-7.7); NEUTROPHILS % (AUTO) 75.8 % (42-75); PLATELET COUNT 255 X10'3 (140-440); RED BLOOD COUNT 2.41 X10'6 (4.70-6.10); RED CELL DISTRIBUTION WIDTH 16.8 % (11.5-14.5); WHITE BLOOD COUNT 14.8 X10'3 (4.5-11.0)
[2020-11-21 03:49] LABS: HEMATOCRIT 21.6 % (42.0-52.0)
[2020-11-21 04:04] LABS: ALANINE AMINOTRANSFERASE 19 U/L (12-78); ALBUMIN 1.8 G/DL (3.4-5.0); ALBUMIN/GLOBULIN RATIO 0.6 (1.1-1.5); ALKALINE PHOSPHATASE 38 IU/L (46-116); ASPARTATE AMINO TRANSFERASE 22 U/L (10-37); BILIRUBIN,TOTAL 0.3 MG/DL (0.1-1.0); BLOOD UREA NITROGEN 12 MG/DL (7-18); CALCIUM 6.9 MG/DL (8.5-10.1); CREATININE 0.75 MG/DL (0.60-1.10); GLUCOSE 149 MG/DL (70-104); PHOSPHORUS 3.9 MG/DL (2.3-4.5); TOTAL CARBON DIOXIDE 22.2 MMOL/L (24-32); TOTAL PROTEIN 4.6 G/DL (6.4-8.2); TRIGLYCERIDES 59 MG/DL (20-135); eGFR > 90 ML/MIN
[2020-11-21 04:08] LABS: ANION GAP 9 (8-16); CHLORIDE 109 MMOL/L (99-107); POTASSIUM 3.9 MMOL/L (3.5-5.1); SODIUM 140 MMOL/L (135-145)
[2020-11-21 04:11] LABS: ABG BASE EXCESS -3.9 mmol/L (-2.0-2.0); ABG HCO3 20.5 mmol/L (22.0-26.0); ABG PCO2 (T) 34.6 mmHg (35.0-48.0); ABG PO2 (T) 103.1 mmHg (75.0-100.0); ALLEN'S TEST POSITIVE; FCOHb 0.3 % (0.0-3.9); FMetHb 0.5 % (0.0-1.5); FO2Hb 96.2 % (94-97); PATIENT TEMPERATURE 37.5; PEEP 5 cm H2O; RESPIRATORY RATE 12 b/min; TIDAL VOLUME 650 mL; TOTAL HEMOGLOBIN 7.8 G/dl (14.0-18.0)
[2020-11-21 04:54] LABS: ANISOCYTOSIS 1+; PLATELET ESTIMATE NORMAL; TOTAL CELLS COUNTED 100
[2020-11-21] MEDS: folic acid 1mg/0.2ml inj IV SCH (06:58)
[2020-11-21] MEDS: lactobacillus rhamnosus 10,000 MMU CELLS/CAPSULE PO SCH ×2 (06:59→20:00)
[2020-11-21] MEDS: propofol 1000mg/100ml bottle 100 ML IV SCH (07:03)
[2020-11-21] MEDS: normal saline 1000ml 1,000 ML IV SCH ×3 (07:04→20:13)
[2020-11-21] MEDS: K and/or MAG REPLACEMENT MC SCH ×2 (08:00→20:00)
[2020-11-21] MEDS: nicotine 21mg patch - 24 hr TD SCH (08:49)
[2020-11-21] MEDS: FENTANYL-0.9 % NACL/PF 100 ML IV PRN ×2 (08:54→14:31)
[2020-11-21 15:21] LABS: BASOPHILS % (AUTO) 0.4 % (0-1); EOSINOPHILS # (AUTO) 0.1 X10'3 (0-0.9); EOSINOPHILS % (AUTO) 1.2 % (0-6); LYMPHOCYTES # (AUTO) 0.6 X10'3 (1.1-4.8); LYMPHOCYTES % (AUTO) 7.3 % (21-51); MEAN CORPUSCULAR HEMOGLOBIN 30.1 PG (27.0-31.0); MEAN CORPUSCULAR HGB CONC 33.3 g/dL (33.0-36.5); MEAN CORPUSCULAR VOLUME 90.2 FL (78-98); MEAN PLATELET VOLUME 7.5 FL (7.4-10.4); MONOCYTES # (AUTO) 1.3 X10'3 (0-0.9); MONOCYTES % (AUTO) 15.3 % (2-12); NEUTROPHILS # (AUTO) 6.6 X10'3 (1.8-7.7); NEUTROPHILS % (AUTO) 75.8 % (42-75); PLATELET COUNT 221 X10'3 (140-440); RED BLOOD COUNT 2.02 X10'6 (4.70-6.10); RED CELL DISTRIBUTION WIDTH 16.3 % (11.5-14.5); WHITE BLOOD COUNT 8.7 X10'3 (4.5-11.0)
[2020-11-21 15:24] LABS: HEMOGLOBIN 6.1 g/dl (14.0-17.9)
[2020-11-21 15:25] LABS: HEMATOCRIT 18.2 % (42.0-52.0)
[2020-11-21] MEDS: [UNRECOGNIZED DRUG - REMARK] IV SCH ×5 (19:12)
[2020-11-21] MEDS ORDERED: heparin, porcine 5000 units/ml vial SQ SCH (20:00)
--- NOTE | 2020-11-21 20:20 | NUR ---
Blood transfusion documentation, first set 11/21/20 @ 1915 Temp was 38.3 (101) not 38.8 (101.9). Second set of vitals documented at 1914 is correct.
[2020-11-21 23:54] LABS: HEMATOCRIT 22.3 % (42.0-52.0); HEMOGLOBIN 7.6 g/dl (14.0-17.9); MEAN CORPUSCULAR HEMOGLOBIN 30.5 PG (27.0-31.0); MEAN CORPUSCULAR HGB CONC 34.2 g/dL (33.0-36.5); MEAN CORPUSCULAR VOLUME 89.3 FL (78-98); MEAN PLATELET VOLUME 7.1 FL (7.4-10.4); PLATELET COUNT 168 X10'3 (140-440); RED BLOOD COUNT 2.49 X10'6 (4.70-6.10); RED CELL DISTRIBUTION WIDTH 15.4 % (11.5-14.5); WHITE BLOOD COUNT 9.5 X10'3 (4.5-11.0)
[2020-11-22] VITALS (25 sets, daily range): BP systolic 90–134; BP diastolic 57–82
[2020-11-22] MEDS: FENTANYL-0.9 % NACL/PF 100 ML IV PRN ×2 (00:21→09:28)
[2020-11-22] MEDS: NORepinephrine 8mg/ 250ml NS 250 ML IV SCH (00:37)
[2020-11-22] MEDS: normal saline 1000ml 1,000 ML IV SCH ×2 (02:15→09:14)
[2020-11-22 03:35] LABS: ABG HCO3 23.3 mmol/L (22.0-26.0); ABG OXYGEN SATURATION 96.7 % (94-97); ABG PCO2 (T) 37.7 mmHg (35.0-48.0); ALLEN'S TEST POSITIVE; FCOHb 0.1 % (0.0-3.9); FMetHb 0.4 % (0.0-1.5); FO2Hb 96.2 % (94-97); PATIENT TEMPERATURE 37.6; PEEP 5 cm H2O; RESPIRATORY RATE 12 b/min; TIDAL VOLUME 650 mL; TOTAL HEMOGLOBIN 8.6 G/dl (14.0-18.0)
[2020-11-22 03:43] LABS: BASOPHILS # (AUTO) 0.1 X10'3 (0-0.2); BASOPHILS % (AUTO) 0.7 % (0-1); EOSINOPHILS # (AUTO) 0.2 X10'3 (0-0.9); EOSINOPHILS % (AUTO) 1.7 % (0-6); HEMATOCRIT 22.9 % (42.0-52.0); HEMOGLOBIN 7.8 g/dl (14.0-17.9); LYMPHOCYTES # (AUTO) 0.7 X10'3 (1.1-4.8); LYMPHOCYTES % (AUTO) 7.5 % (21-51); MEAN CORPUSCULAR HEMOGLOBIN 30.5 PG (27.0-31.0); MEAN CORPUSCULAR HGB CONC 33.9 g/dL (33.0-36.5); MEAN PLATELET VOLUME 6.9 FL (7.4-10.4); MONOCYTES # (AUTO) 1.5 X10'3 (0-0.9); MONOCYTES % (AUTO) 14.9 % (2-12); NEUTROPHILS # (AUTO) 7.4 X10'3 (1.8-7.7); NEUTROPHILS % (AUTO) 75.2 % (42-75); PLATELET COUNT 181 X10'3 (140-440); RED BLOOD COUNT 2.55 X10'6 (4.70-6.10); RED CELL DISTRIBUTION WIDTH 15.7 % (11.5-14.5); WHITE BLOOD COUNT 9.9 X10'3 (4.5-11.0)
[2020-11-22 03:48] LABS: ALANINE AMINOTRANSFERASE 18 U/L (12-78); ALBUMIN 1.3 G/DL (3.4-5.0); ALBUMIN/GLOBULIN RATIO 0.4 (1.1-1.5); ALKALINE PHOSPHATASE 40 IU/L (46-116); ANION GAP 4 (8-16); ASPARTATE AMINO TRANSFERASE 13 U/L (10-37); BILIRUBIN,TOTAL 0.4 MG/DL (0.1-1.0); BLOOD UREA NITROGEN 11 MG/DL (7-18); BUN/CREATININE RATIO 18.3 (5.4-32.0); CALCIUM 6.9 MG/DL (8.5-10.1); CHLORIDE 110 MMOL/L (99-107); GLUCOSE 128 MG/DL (70-104); MAGNESIUM 1.9 MG/DL (1.5-2.4); PHOSPHORUS 2.7 MG/DL (2.3-4.5); POTASSIUM 3.2 MMOL/L (3.5-5.1); SODIUM 140 MMOL/L (135-145); TOTAL CARBON DIOXIDE 26.2 MMOL/L (24-32); TOTAL PROTEIN 4.2 G/DL (6.4-8.2); eGFR > 90 ML/MIN
[2020-11-22] MEDS ORDERED: CALCIUM GLUC 1gm/50ml NACL,iso 100 ML IV ONE (05:00)
[2020-11-22] MEDS: [UNRECOGNIZED DRUG - REMARK] IV SCH ×10 (05:23→16:51)
--- NOTE | 2020-11-22 07:58 | NUR ---
Patient in room ICU 2040. I have received report from Iram Massey and had the opportunity to ask questions and assume patient care. patient laying in bed with eyes closed, on vent 30% fio2 peep of 5 simv mode, sating 99-100%. mensah to gravity, ordered drips infusing to R IJ
[2020-11-22] MEDS: K and/or MAG REPLACEMENT MC SCH ×2 (08:00→20:00)
[2020-11-22] MEDS: lactobacillus rhamnosus 10,000 MMU CELLS/CAPSULE PO SCH ×2 (08:00→20:00)
[2020-11-22] MEDS: piperacillin/tazo 3.375gm/50ml 50 ML IV SCH ×2 (09:12→16:47)
[2020-11-22] MEDS: nicotine 21mg patch - 24 hr TD SCH (09:12)
[2020-11-22] MEDS: potassium Cl 40MEQ/250ML bag 270 ML IV PRN (09:16)
[2020-11-22 09:55] LABS: PREALBUMIN 8.7 MG/DL (19-36)
--- NOTE | 2020-11-22 11:04 | NUR ---
Rounds Note Dr. Reyes updated on labs, drips, and lines Dr. Reyes would like propfol stopped and ordered precedex if needed, would like to extubate patient if weaning parameters are met, keep fentanyl running titrate down as needed. Ordered a 1400 cbc and bmp, will address protonix after 1400 labs are reviewed. No new orders at this time
[2020-11-22] MEDS: dexmedetomidine/D5W 100mL 100 ML IV SCH ×2 (11:05→23:44)
--- NOTE | 2020-11-22 13:07 | NUR ---
Called Dr. Rodriguez updated him on the patients status, he stated that he does not plan on taking him back for any procedures and he is ok with him being extubated. Informed him that there is a large amount of drainage around the neena site, that the neena drain itself is not draining. He stated to change the bulb. No other new orders at this time
[2020-11-22 14:21] LABS: BASOPHILS % (AUTO) 0.4 % (0-1); EOSINOPHILS # (AUTO) 0.2 X10'3 (0-0.9); EOSINOPHILS % (AUTO) 2.2 % (0-6); HEMATOCRIT 24.8 % (42.0-52.0); HEMOGLOBIN 8.3 g/dl (14.0-17.9); LYMPHOCYTES # (AUTO) 0.6 X10'3 (1.1-4.8); LYMPHOCYTES % (AUTO) 6.2 % (21-51); MEAN CORPUSCULAR HEMOGLOBIN 30.3 PG (27.0-31.0); MEAN CORPUSCULAR HGB CONC 33.4 g/dL (33.0-36.5); MEAN CORPUSCULAR VOLUME 90.8 FL (78-98); MEAN PLATELET VOLUME 7.1 FL (7.4-10.4); MONOCYTES # (AUTO) 1.4 X10'3 (0-0.9); MONOCYTES % (AUTO) 13.6 % (2-12); NEUTROPHILS # (AUTO) 7.8 X10'3 (1.8-7.7); NEUTROPHILS % (AUTO) 77.6 % (42-75); PLATELET COUNT 216 X10'3 (140-440); RED BLOOD COUNT 2.74 X10'6 (4.70-6.10); RED CELL DISTRIBUTION WIDTH 15.5 % (11.5-14.5); WHITE BLOOD COUNT 10.1 X10'3 (4.5-11.0)
[2020-11-22 14:31] LABS: ALBUMIN 1.3 G/DL (3.4-5.0); ANION GAP 4 (8-16); BLOOD UREA NITROGEN 9 MG/DL (7-18); BUN/CREATININE RATIO 15.3 (5.4-32.0); CALCIUM 7.6 MG/DL (8.5-10.1); CHLORIDE 107 MMOL/L (99-107); CREATININE 0.59 MG/DL (0.60-1.10); GLUCOSE 122 MG/DL (70-104); POTASSIUM 3.6 MMOL/L (3.5-5.1); SODIUM 136 MMOL/L (135-145); TOTAL CARBON DIOXIDE 25.5 MMOL/L (24-32); eGFR > 90 ML/MIN
--- NOTE | 2020-11-22 15:37 | NUR ---
Per Dr. Reyes D/c Art line, Art line D/c cannula intact
--- NOTE | 2020-11-22 15:38 | NUR ---
Per Dr. Rodriguez DO NOT REMOVE NG TUBE
[2020-11-22] MEDS: morphine 2 MG/ML inj. syringe IV PRN ×2 (18:52→23:44)
[2020-11-22] MEDS ORDERED: enoxaparin 40mg/0.4ml syringe SUBCUT ONE (20:55)
[2020-11-22] MEDS: pantoprazole 40 MG vial IV SCH (22:00)
[2020-11-23] VITALS (23 sets, daily range): BP systolic 95–146; BP diastolic 57–82
[2020-11-23] MEDS: morphine 2 MG/ML inj. syringe IV PRN ×7 (03:06→22:40)
[2020-11-23] MEDS: [UNRECOGNIZED DRUG - REMARK] IV SCH ×10 (03:07→15:20)
[2020-11-23 03:28] LABS: ALANINE AMINOTRANSFERASE 20 U/L (12-78); ALBUMIN 1.2 G/DL (3.4-5.0); ALBUMIN/GLOBULIN RATIO 0.3 (1.1-1.5); ALKALINE PHOSPHATASE 77 IU/L (46-116); ANION GAP 5 (8-16); ASPARTATE AMINO TRANSFERASE 25 U/L (10-37); BILIRUBIN,TOTAL 0.5 MG/DL (0.1-1.0); BLOOD UREA NITROGEN 10 MG/DL (7-18); BUN/CREATININE RATIO 15.6 (5.4-32.0); CALCIUM 7.7 MG/DL (8.5-10.1); CHLORIDE 106 MMOL/L (99-107); CREATININE 0.64 MG/DL (0.60-1.10); GLUCOSE 139 MG/DL (70-104); MAGNESIUM 1.9 MG/DL (1.5-2.4); PHOSPHORUS 2.7 MG/DL (2.3-4.5); POTASSIUM 3.2 MMOL/L (3.5-5.1); PREALBUMIN 6.7 MG/DL (19-36); SODIUM 138 MMOL/L (135-145); TOTAL CARBON DIOXIDE 26.9 MMOL/L (24-32); TOTAL PROTEIN 4.7 G/DL (6.4-8.2); TRIGLYCERIDES 59 MG/DL (20-135); eGFR > 90 ML/MIN
[2020-11-23 03:34] LABS: BASOPHILS % (AUTO) 0.5 % (0-1); EOSINOPHILS # (AUTO) 0.2 X10'3 (0-0.9); EOSINOPHILS % (AUTO) 2.4 % (0-6); HEMATOCRIT 23.3 % (42.0-52.0); HEMOGLOBIN 7.9 g/dl (14.0-17.9); LYMPHOCYTES # (AUTO) 0.6 X10'3 (1.1-4.8); LYMPHOCYTES % (AUTO) 6.8 % (21-51); MEAN CORPUSCULAR HGB CONC 33.9 g/dL (33.0-36.5); MEAN CORPUSCULAR VOLUME 88.5 FL (78-98); MEAN PLATELET VOLUME 7.3 FL (7.4-10.4); MONOCYTES # (AUTO) 1.1 X10'3 (0-0.9); MONOCYTES % (AUTO) 12.8 % (2-12); NEUTROPHILS # (AUTO) 6.8 X10'3 (1.8-7.7); NEUTROPHILS % (AUTO) 77.5 % (42-75); PLATELET COUNT 248 X10'3 (140-440); RED BLOOD COUNT 2.64 X10'6 (4.70-6.10); RED CELL DISTRIBUTION WIDTH 15.4 % (11.5-14.5); WHITE BLOOD COUNT 8.8 X10'3 (4.5-11.0)
[2020-11-23] MEDS: potassium Cl 40MEQ/250ML bag 270 ML IV PRN ×3 (04:03→18:50)
--- NOTE | 2020-11-23 06:30 | NUR ---
Patient in room ICU 2040. I have received report from RN and had the opportunity to ask questions and assume patient care.
[2020-11-23] MEDS: K and/or MAG REPLACEMENT MC SCH ×2 (08:00→20:21)
[2020-11-23] MEDS: lactobacillus rhamnosus 10,000 MMU CELLS/CAPSULE PO SCH ×3 (08:00→20:18)
[2020-11-23] MEDS: pantoprazole 40 MG vial IV SCH ×2 (08:22→20:18)
[2020-11-23] MEDS: nicotine 21mg patch - 24 hr TD SCH (08:23)
[2020-11-23] MEDS: dexmedetomidine/D5W 100mL 100 ML IV SCH ×2 (08:26→20:20)
[2020-11-23] MEDS ORDERED: polyethylene glycol 3350 17gm powd pack NG SCH ×2 (11:01→13:00)
[2020-11-23] MEDS ORDERED: Permethrin 1% 59ml topical rinse TP ONE (11:05)
[2020-11-23] MEDS: Chloraseptic (Phenol) Spray 177ml MM PRN ×2 (11:53→16:30)
--- NOTE | 2020-11-23 12:43 | NUR ---
Reassessment: Pt extubated tolerating TPN at goal w/ NG to remain in place and 100ml output only since initially placed per I&O. LBM 11/18 pending suppository today per reinforcing iron worker helper. Pt to remain on TPN without EN at this time w/ PO to resume once bowel function returns per surgeon. Will continue to monitor. Rec: 1. TPN per MD using 3:1 Clinimix E 5/20 1L bag w/ 50ml 20% intralipids at 95ml/hr goal; to provide 2280ml volume, 109g AA, 434g DEX(3.72mg/kg/min), and 2132 total kcals. 2. TG/PALB Q /; daily wts 3. IF TF; Vital AF at 75ml/hr goal w/ water flush 200ml Q4 4. thiamin, folic acid for etoh hx 5. bowel care per rx 6. scaled wt this admit 7. advance diet as medically indicated to heart healthy 8. carin-en-y/dumping syndrome diet eds once stable/appropriate following extubation this admit Addendum: 11/23/20 at [address] Amended: Links added.
[2020-11-23 14:46] LABS: HEMATOCRIT 24.4 % (42.0-52.0); HEMOGLOBIN 8.2 g/dl (14.0-17.9); MEAN CORPUSCULAR HEMOGLOBIN 29.8 PG (27.0-31.0); MEAN CORPUSCULAR HGB CONC 33.5 g/dL (33.0-36.5); PLATELET COUNT 307 X10'3 (140-440); RED BLOOD COUNT 2.75 X10'6 (4.70-6.10); RED CELL DISTRIBUTION WIDTH 15.4 % (11.5-14.5); WHITE BLOOD COUNT 9.9 X10'3 (4.5-11.0)
[2020-11-23] MEDS: ketorolac tromethamine 15mg/ml inj. IV PRN (17:53)
--- NOTE | 2020-11-23 18:17 | NUR ---
Problems reprioritized. Patient report given, questions answered & plan of care reviewed with RN.
[2020-11-23] MEDS ORDERED: ketorolac tromethamine 15mg/ml inj. IV SCH (20:00)
[2020-11-23] MEDS ORDERED: QUEtiapine 25mg tablet NG SCH (20:00)
[2020-11-23] MEDS: enoxaparin 40mg/0.4ml syringe SUBCUT SCH (20:17)
[2020-11-24] VITALS (23 sets, daily range): BP systolic 100–152; BP diastolic 60–98
[2020-11-24] MEDS: ketorolac tromethamine 15mg/ml inj. IV PRN ×4 (00:31→19:24)
[2020-11-24] MEDS: morphine 2 MG/ML inj. syringe IV PRN ×8 (00:41→20:20)
[2020-11-24] MEDS: [UNRECOGNIZED DRUG - REMARK] IV SCH ×10 (01:29→12:46)
[2020-11-24 03:31] LABS: BASOPHILS # (AUTO) 0.1 X10'3 (0-0.2); BASOPHILS % (AUTO) 0.7 % (0-1); EOSINOPHILS # (AUTO) 0.1 X10'3 (0-0.9); EOSINOPHILS % (AUTO) 0.6 % (0-6); HEMATOCRIT 24.6 % (42.0-52.0); HEMOGLOBIN 8.3 g/dl (14.0-17.9); LYMPHOCYTES # (AUTO) 0.4 X10'3 (1.1-4.8); LYMPHOCYTES % (AUTO) 4.3 % (21-51); MEAN CORPUSCULAR HEMOGLOBIN 29.7 PG (27.0-31.0); MEAN CORPUSCULAR HGB CONC 33.6 g/dL (33.0-36.5); MEAN CORPUSCULAR VOLUME 88.2 FL (78-98); MEAN PLATELET VOLUME 6.6 FL (7.4-10.4); MONOCYTES # (AUTO) 0.9 X10'3 (0-0.9); MONOCYTES % (AUTO) 10.3 % (2-12); NEUTROPHILS # (AUTO) 7.5 X10'3 (1.8-7.7); NEUTROPHILS % (AUTO) 84.1 % (42-75); PLATELET COUNT 365 X10'3 (140-440); RED BLOOD COUNT 2.79 X10'6 (4.70-6.10); RED CELL DISTRIBUTION WIDTH 15.7 % (11.5-14.5)
[2020-11-24 03:46] LABS: ALANINE AMINOTRANSFERASE 23 U/L (12-78); ALBUMIN 1.2 G/DL (3.4-5.0); ALBUMIN/GLOBULIN RATIO 0.3 (1.1-1.5); ALKALINE PHOSPHATASE 118 IU/L (46-116); ANION GAP 7 (8-16); ASPARTATE AMINO TRANSFERASE 23 U/L (10-37); BLOOD UREA NITROGEN 12 MG/DL (7-18); BUN/CREATININE RATIO 21.1 (5.4-32.0); CALCIUM 7.7 MG/DL (8.5-10.1); CHLORIDE 106 MMOL/L (99-107); CREATININE 0.57 MG/DL (0.60-1.10); GLUCOSE 159 MG/DL (70-104); MAGNESIUM 1.9 MG/DL (1.5-2.4); PHOSPHORUS 2.7 MG/DL (2.3-4.5); POTASSIUM 3.1 MMOL/L (3.5-5.1); SODIUM 138 MMOL/L (135-145); TOTAL CARBON DIOXIDE 25.3 MMOL/L (24-32); TOTAL PROTEIN 5.3 G/DL (6.4-8.2); eGFR > 90 ML/MIN
[2020-11-24] MEDS: nicotine 21mg patch - 24 hr TD SCH (07:08)
[2020-11-24] MEDS: lactobacillus rhamnosus 10,000 MMU CELLS/CAPSULE PO SCH ×2 (07:08→19:25)
[2020-11-24] MEDS: pantoprazole 40 MG vial IV SCH ×2 (07:08→19:25)
[2020-11-24] MEDS: potassium Cl 40MEQ/250ML bag 270 ML IV PRN ×2 (07:09→19:25)
[2020-11-24] MEDS: K and/or MAG REPLACEMENT MC SCH ×2 (07:11→19:34)
[2020-11-24] MEDS: dexmedetomidine/D5W 100mL 100 ML IV SCH (11:44)
[2020-11-24] MEDS ORDERED: HYDROcodone/acetaminophen 7.5MG/325MG per 15ml UD CUP PO PRN (12:30)
[2020-11-24] MEDS ORDERED: morphine 2 MG/ML inj. syringe IV ONE (14:00)
[2020-11-24] MEDS ORDERED: diatr meglu/diatrizoate 30ml oral sol.-(3 dose) bottle PO ONE (14:55)
[2020-11-24] MEDS ORDERED: acetaminophen 1,000mg/100ml IV 100 ML IV ONE (16:25)
[2020-11-24] MEDS ORDERED: normal saline 1000ml 1,000 ML IV ONE (16:40)
[2020-11-24 17:04] LABS: BASOPHILS # (AUTO) 0.1 X10'3 (0-0.2); BASOPHILS % (AUTO) 0.3 % (0-1); EOSINOPHILS % (AUTO) 0.1 % (0-6); HEMATOCRIT 26.9 % (42.0-52.0); HEMOGLOBIN 8.9 g/dl (14.0-17.9); LYMPHOCYTES # (AUTO) 0.3 X10'3 (1.1-4.8); LYMPHOCYTES % (AUTO) 2.1 % (21-51); MEAN CORPUSCULAR HEMOGLOBIN 29.2 PG (27.0-31.0); MEAN CORPUSCULAR HGB CONC 33.2 g/dL (33.0-36.5); MEAN CORPUSCULAR VOLUME 87.9 FL (78-98); MEAN PLATELET VOLUME 7.2 FL (7.4-10.4); MONOCYTES # (AUTO) 1.2 X10'3 (0-0.9); MONOCYTES % (AUTO) 7.5 % (2-12); NEUTROPHILS # (AUTO) 14.2 X10'3 (1.8-7.7); PLATELET COUNT 480 X10'3 (140-440); RED BLOOD COUNT 3.07 X10'6 (4.70-6.10); RED CELL DISTRIBUTION WIDTH 16.2 % (11.5-14.5); WHITE BLOOD COUNT 15.8 X10'3 (4.5-11.0)
[2020-11-24] MEDS: HYDROcodone/acetaminophen 7.5MG/325MG per 15ml UD CUP PO PRN ×2 (17:11→22:45)
[2020-11-24] MEDS ORDERED: iohexol 300mg/ml 100ml inj. ONE (17:21)
[2020-11-24 17:26] LABS: ALANINE AMINOTRANSFERASE 27 U/L (12-78); ALBUMIN 1.2 G/DL (3.4-5.0); ALBUMIN/GLOBULIN RATIO 0.3 (1.1-1.5); ALKALINE PHOSPHATASE 139 IU/L (46-116); AMYLASE 164 U/L (25-115); ANION GAP 9 (8-16); ASPARTATE AMINO TRANSFERASE 31 U/L (10-37); BILIRUBIN,TOTAL 2.4 MG/DL (0.1-1.0); BLOOD UREA NITROGEN 10 MG/DL (7-18); BUN/CREATININE RATIO 13.7 (5.4-32.0); CALCIUM 7.7 MG/DL (8.5-10.1); CHLORIDE 103 MMOL/L (99-107); CREATININE 0.73 MG/DL (0.60-1.10); GLUCOSE 163 MG/DL (70-104); POTASSIUM 3.4 MMOL/L (3.5-5.1); SODIUM 136 MMOL/L (135-145); TOTAL CARBON DIOXIDE 23.9 MMOL/L (24-32); TOTAL PROTEIN 5.5 G/DL (6.4-8.2); eGFR > 90 ML/MIN
[2020-11-24] MEDS: enoxaparin 40mg/0.4ml syringe SUBCUT SCH (19:26)
[2020-11-24] MEDS ORDERED: pantoprazole 40mg Tablet.DR PO SCH (20:00)
[2020-11-24] MEDS ORDERED: sincalide inj 1.7 MCG in normal saline 100ml IV soln 100 ML IV ONE (20:45)
[2020-11-24 22:38] LABS: CLARITY,URINE CLEAR (Clear); COLOR,URINE AMBER (Yellow); GLUCOSE, URINE NEGATIVE (Neg); KETONES,URINE NEGATIVE (Neg); LEUKOCYTE ESTERASE ,URINE NEGATIVE (Neg); NITRITES, URINE NEGATIVE (Neg); OCCULT BLOOD,URINE TRACE-INTACT (Neg); PH,URINE 6.5 (4.8-8.0); PROTEIN,URINE TRACE mg/dl (Neg)
[2020-11-24 22:46] LABS: UA COLLECTION TYPE CLN CATCH MIDSTREAM
[2020-11-24 22:48] LABS: BACTERIA,URINE NONE SEEN /HPF (Neg); MUCUS STRANDS NONE SEEN /LPF (Neg); RBC,URINE 0-2 /HPF (0-2); SQUAMOUS EPITHELIAL CELL,UR FEW /LPF (FEW); WBC,URINE 0-4 /HPF (0-4)
[2020-11-25] VITALS (24 sets, daily range): BP systolic 98–134; BP diastolic 61–87
[2020-11-25] MEDS: piperacillin/tazo 4.5gm/100ml 100 ML IV SCH ×3 (00:29→16:16)
[2020-11-25] MEDS: morphine 2 MG/ML inj. syringe IV PRN ×5 (00:29→23:51)
[2020-11-25] MEDS: Dextrose 10%-water IV solution 1,000 ML IV SCH ×3 (00:30→17:17)
[2020-11-25] MEDS: ketorolac tromethamine 15mg/ml inj. IV PRN ×3 (02:32→13:19)
[2020-11-25] MEDS: HYDROcodone/acetaminophen 7.5MG/325MG per 15ml UD CUP PO PRN ×4 (04:01→15:45)
[2020-11-25 06:24] LABS: BASOPHILS # (AUTO) 0.1 X10'3 (0-0.2); BASOPHILS % (AUTO) 0.5 % (0-1); EOSINOPHILS % (AUTO) 0.1 % (0-6); HEMATOCRIT 27.3 % (42.0-52.0); HEMOGLOBIN 9.2 g/dl (14.0-17.9); LYMPHOCYTES # (AUTO) 0.4 X10'3 (1.1-4.8); LYMPHOCYTES % (AUTO) 1.5 % (21-51); MEAN CORPUSCULAR HEMOGLOBIN 29.4 PG (27.0-31.0); MEAN CORPUSCULAR HGB CONC 33.6 g/dL (33.0-36.5); MEAN CORPUSCULAR VOLUME 87.4 FL (78-98); MEAN PLATELET VOLUME 6.7 FL (7.4-10.4); MONOCYTES # (AUTO) 1.5 X10'3 (0-0.9); MONOCYTES % (AUTO) 6.4 % (2-12); NEUTROPHILS # (AUTO) 21.6 X10'3 (1.8-7.7); NEUTROPHILS % (AUTO) 91.5 % (42-75); PLATELET COUNT 536 X10'3 (140-440); RED BLOOD COUNT 3.12 X10'6 (4.70-6.10); RED CELL DISTRIBUTION WIDTH 16.8 % (11.5-14.5); WHITE BLOOD COUNT 23.6 X10'3 (4.5-11.0)
[2020-11-25 06:49] LABS: ALANINE AMINOTRANSFERASE 25 U/L (12-78); ALBUMIN 1.2 G/DL (3.4-5.0); ALBUMIN/GLOBULIN RATIO 0.3 (1.1-1.5); ALKALINE PHOSPHATASE 124 IU/L (46-116); ANION GAP 9 (8-16); ASPARTATE AMINO TRANSFERASE 20 U/L (10-37); BILIRUBIN,TOTAL 2.5 MG/DL (0.1-1.0); BLOOD UREA NITROGEN 12 MG/DL (7-18); BUN/CREATININE RATIO 13.2 (5.4-32.0); CALCIUM 7.7 MG/DL (8.5-10.1); CHLORIDE 105 MMOL/L (99-107); CREATININE 0.91 MG/DL (0.60-1.10); GLUCOSE 137 MG/DL (70-104); MAGNESIUM 1.9 MG/DL (1.5-2.4); PHOSPHORUS 3.6 MG/DL (2.3-4.5); POTASSIUM 3.6 MMOL/L (3.5-5.1); SODIUM 139 MMOL/L (135-145); TOTAL CARBON DIOXIDE 25.3 MMOL/L (24-32); TOTAL PROTEIN 5.6 G/DL (6.4-8.2); eGFR 87 ML/MIN
[2020-11-25] MEDS: nicotine 21mg patch - 24 hr TD SCH ×2 (07:05→07:57)
[2020-11-25] MEDS: lactobacillus rhamnosus 10,000 MMU CELLS/CAPSULE PO SCH ×2 (07:05→19:26)
[2020-11-25] MEDS: pantoprazole 40 MG vial IV SCH ×2 (07:06→19:26)
[2020-11-25] MEDS: K and/or MAG REPLACEMENT MC SCH ×2 (08:00→20:00)
[2020-11-25] MEDS: vancomycin/NS 1 GM ADD-VANTAGE 250 ML IV SCH ×2 (09:05→23:47)
[2020-11-25 09:49] LABS: BILIRUBIN,DIRECT 2.2 MG/DL (0-0.3)
[2020-11-25] MEDS ORDERED: acetaminophen 325mg/10.15ml oral unit dose solution PO PRN (12:45)
[2020-11-25] MEDS: cyclobenzaprine 10mg tablet PO PRN (13:18)
[2020-11-25] MEDS ORDERED: GABA300C PO (14:35)
[2020-11-25] MEDS ORDERED: PRAZ5CAP PO (14:35)
[2020-11-25] MEDS ORDERED: PROP10TA10 PO (14:35)
[2020-11-25] MEDS ORDERED: TRAZ-256 PO (14:35)
[2020-11-25 14:39] LABS: BASOPHILS # (AUTO) 0.1 X10'3 (0-0.2); BASOPHILS % (AUTO) 0.4 % (0-1); EOSINOPHILS # (AUTO) 0.1 X10'3 (0-0.9); EOSINOPHILS % (AUTO) 0.4 % (0-6); HEMATOCRIT 31.3 % (42.0-52.0); HEMOGLOBIN 10.1 g/dl (14.0-17.9); LYMPHOCYTES # (AUTO) 0.3 X10'3 (1.1-4.8); LYMPHOCYTES % (AUTO) 0.9 % (21-51); MEAN CORPUSCULAR HEMOGLOBIN 28.4 PG (27.0-31.0); MEAN CORPUSCULAR HGB CONC 32.1 g/dL (33.0-36.5); MEAN CORPUSCULAR VOLUME 88.2 FL (78-98); MEAN PLATELET VOLUME 6.7 FL (7.4-10.4); MONOCYTES # (AUTO) 1.6 X10'3 (0-0.9); MONOCYTES % (AUTO) 5.7 % (2-12); NEUTROPHILS # (AUTO) 26.6 X10'3 (1.8-7.7); NEUTROPHILS % (AUTO) 92.6 % (42-75); PLATELET COUNT 591 X10'3 (140-440); RED BLOOD COUNT 3.55 X10'6 (4.70-6.10)
[2020-11-25 14:41] LABS: WHITE BLOOD COUNT 28.7 X10'3 (4.5-11.0)
[2020-11-25 15:18] LABS: ANISOCYTOSIS 1+; LARGE PLATELETS FEW; PLATELET ESTIMATE INCREASED; TOTAL CELLS COUNTED 100
[2020-11-25] MEDS: LORazepam 2 mg/ml vial IV PRN (16:16)
[2020-11-25] MEDS: propranolol 10mg tablet PO SCH ×2 (16:17→23:57)
[2020-11-25] MEDS: gabapentin 300mg capsule PO SCH ×2 (16:17→23:57)
--- NOTE | 2020-11-25 19:00 | NUR ---
LEFT FOR MRCP WITH TECH
[2020-11-25] MEDS: enoxaparin 40mg/0.4ml syringe SUBCUT SCH (20:00)
--- NOTE | 2020-11-25 20:30 | NUR ---
[facility]
--- NOTE | 2020-11-25 21:27 | NUR ---
SPOKE TO PHARMACIST , VANCO AND D10W ARE COMPATIBLE TO ADMINISTER TOGETHER
[2020-11-25] MEDS: prazosin 5mg capsule PO SCH (21:52)
[2020-11-25] MEDS: fluconazole 100mg tablet PO SCH (21:52)
[2020-11-25] MEDS: traZODone 50mg tablet PO SCH (21:53)
--- NOTE | 2020-11-25 23:33 | NUR ---
tank charger texted and received response to dr. miranda for acknowledgement of positive blood cultures .
--- NOTE | 2020-11-25 23:36 | NUR ---
patients lovenox is to be held, patient is scheduled for surgery in the morning and is actively putting out copious amounts of serosangious drainage out of neena drain.
[2020-11-26] VITALS (31 sets, daily range): BP systolic 93–170; BP diastolic 44–73
[2020-11-26] MEDS: LORazepam 2 mg/ml vial IV PRN ×2 (00:31→03:57)
[2020-11-26] MEDS: piperacillin/tazo 4.5gm/100ml 100 ML IV SCH ×3 (02:03→15:34)
[2020-11-26] MEDS: Dextrose 10%-water IV solution 1,000 ML IV SCH ×2 (03:57→15:35)
[2020-11-26 06:48] LABS: ALANINE AMINOTRANSFERASE 26 U/L (12-78); ALBUMIN/GLOBULIN RATIO 0.2 (1.1-1.5); ALKALINE PHOSPHATASE 104 IU/L (46-116); ANION GAP 11 (8-16); ASPARTATE AMINO TRANSFERASE 19 U/L (10-37); BASOPHILS # (AUTO) 0.1 X10'3 (0-0.2); BASOPHILS % (AUTO) 0.5 % (0-1); BLOOD UREA NITROGEN 15 MG/DL (7-18); BUN/CREATININE RATIO 15.5 (5.4-32.0); CALCIUM 7.3 MG/DL (8.5-10.1); CHLORIDE 102 MMOL/L (99-107); CREATININE 0.97 MG/DL (0.60-1.10); EOSINOPHILS # (AUTO) 0.2 X10'3 (0-0.9); GLUCOSE 122 MG/DL (70-104); HEMOGLOBIN 7.6 g/dl (14.0-17.9); LYMPHOCYTES # (AUTO) 0.3 X10'3 (1.1-4.8); LYMPHOCYTES % (AUTO) 1.3 % (21-51); MEAN CORPUSCULAR HGB CONC 33.1 g/dL (33.0-36.5); MEAN CORPUSCULAR VOLUME 87.5 FL (78-98); MONOCYTES # (AUTO) 1.3 X10'3 (0-0.9); MONOCYTES % (AUTO) 5.4 % (2-12); NEUTROPHILS # (AUTO) 22.8 X10'3 (1.8-7.7); NEUTROPHILS % (AUTO) 91.8 % (42-75); PHOSPHORUS 3.4 MG/DL (2.3-4.5); PLATELET COUNT 579 X10'3 (140-440); POTASSIUM 3.4 MMOL/L (3.5-5.1); RED BLOOD COUNT 2.63 X10'6 (4.70-6.10); RED CELL DISTRIBUTION WIDTH 17.5 % (11.5-14.5); SODIUM 136 MMOL/L (135-145); TOTAL CARBON DIOXIDE 22.9 MMOL/L (24-32); TOTAL PROTEIN 5.2 G/DL (6.4-8.2); WHITE BLOOD COUNT 24.8 X10'3 (4.5-11.0); eGFR 81 ML/MIN
[2020-11-26] MEDS: lactobacillus rhamnosus 10,000 MMU CELLS/CAPSULE PO SCH ×2 (07:22→20:00)
[2020-11-26] MEDS: fluconazole 100mg tablet PO SCH (07:22)
[2020-11-26] MEDS: gabapentin 300mg capsule PO SCH ×2 (07:23→15:20)
[2020-11-26 07:32] LABS: PLATELET ESTIMATE INCREASED; TOTAL CELLS COUNTED 100
[2020-11-26 07:33] LABS: ANISOCYTOSIS 1+; HYPOCHROMASIA 1+; POLYCHROMASIA 1+
[2020-11-26] MEDS: K and/or MAG REPLACEMENT MC SCH ×2 (08:00→20:00)
[2020-11-26] MEDS: propranolol 10mg tablet PO SCH ×2 (08:00→15:20)
[2020-11-26] MEDS: pantoprazole 40 MG vial IV SCH ×2 (08:41→21:29)
[2020-11-26] MEDS: vancomycin/NS 1 GM ADD-VANTAGE 250 ML IV SCH ×2 (08:41→21:21)
[2020-11-26] MEDS: nicotine 21mg patch - 24 hr TD SCH (08:42)
[2020-11-26] MEDS: morphine 2 MG/ML inj. syringe IV PRN ×2 (09:37→10:27)
--- NOTE | 2020-11-26 10:41 | NUR ---
PT IS 10/10 PAIN AND IS RECEIVING 2MG OF MORPHINE, PT STATES THAT IT IS NOT ENOUGH FOR HIS PAIN. DR KRAMER WAS INFORMED AND GAVE A VERBAL ORDER FOR 1MG OF MORPHINE. PT PAIN IS 8/10 WITH GIVING THE 3MG TOTAL OF MORPHINE.
[2020-11-26] MEDS ORDERED: morphine 2 MG/ML inj. syringe IV ONE (11:05)
--- NOTE | 2020-11-26 11:15 | NUR ---
PT SATING 90 TO 92% ON ROOM AIR, DR KRAMER WANTED PT TO BE ON OXYGEN AND TO KEEP O2 SATS ABOVE 94% PT IS NOW ON 2LNC AND SATING 98 TO 100%
[2020-11-26] MEDS: HYDROmorphone inj. 0.5 MG/0.5 ML DISP.SYRIN IV PRN ×2 (11:27→15:34)
--- NOTE | 2020-11-26 12:04 | NUR ---
TPN Consult: Pt advanced to clear liquids following extubation w/ central access removed but now NPO for return to OR today and will need TPN once central access in place per clinical education specialist. Currently receiving D5 per EMR. LBM 11/26 dark per EMR. Pt has serum output from wound and s/p MRCP showing cholelithiasis per EMR. Unable to meet minimum protein needs given updated scaled wt this admit and current high dex formulary. Will monitor for PN tolerance and further GI information post-op. Rec: 1. TPN per MD using 3:1 Clinimix E 01/25 1L bag w/ 50ml 20% intralipids at 105ml/hr goal; to provide 2520ml volume, 120g AA, 480g DEX(3.97mg/kg/min), and 2352 total kcals. 2. TG/PALB Q /; daily wts 3. thiamin, folic acid, MVI for etoh hx 4. bowel care per rx 5. advance diet as medically indicated to heart healthy 6. carin-en-y/dumping syndrome diet eds once stable/appropriate following extubation this admit Addendum: 11/26/20 at [address] Amended: Links added.
[2020-11-26] MEDS ORDERED: Dextrose 10%-water IV solution 1,000 ML IV PRN (13:10)
--- NOTE | 2020-11-26 14:37 | NUR ---
CALLED DR JAFFE GAVE HIM AN UPDATE ON PT LISSY DRAINAGE. PT WILL BE GOING TO SURGERY AND NEEDS TO REMAIN NPO
[2020-11-26 15:56] LABS: PREALBUMIN 4.5 MG/DL (19-36)
[2020-11-26] MEDS ORDERED: midazolam 1 mg/ML 2ml injection ONE (16:16)
[2020-11-26] MEDS ORDERED: fentaNYL /PF 50mcg/ml 5ml ampule ONE (16:16)
[2020-11-26] MEDS ORDERED: sevoflurane 250ml liquid IH ONE (16:23)
[2020-11-26] MEDS ORDERED: rocuronium 10mg/ml inj IV ONE ×2 (16:23→19:14)
--- NOTE | 2020-11-26 17:12 | NUR ---
called Noreen in RT to prepare for the pt coming back on vent
[2020-11-26] MEDS ORDERED: ipratropium/albuterol 3ml nebule NEB PRN (17:30)
[2020-11-26] MEDS ORDERED: midazolam 1 mg/ML 2ml injection IV ONE (17:30)
[2020-11-26] MEDS ORDERED: midazolam 100mg in NS 100ml 100 ML IV PRN (17:30)
--- NOTE | 2020-11-26 18:20 | NUR ---
Patient in room ICU 2041. I have received report from KATE Curry and had the opportunity to ask questions and assume patient care. Patient in OR.
[2020-11-26] MEDS ORDERED: morphine 10mg/ml inj. ONE (18:22)
[2020-11-26 18:54] LABS: ABG BASE EXCESS -4.2 mmol/L (-2.0-2.0); ABG HCO3 20.3 mmol/L (22.0-26.0); ABG OXYGEN SATURATION 96.8 % (94-97); ABG PCO2 (T) 34.7 mmHg (35.0-48.0); ABG PO2 (T) 92.7 mmHg (75.0-100.0); FCOHb 0.3 % (0.0-3.9); FMetHb 0.5 % (0.0-1.5); PATIENT TEMPERATURE 37.2; PEEP 5 cm H2O; RESPIRATORY RATE 12 b/min; TIDAL VOLUME 650 mL; TOTAL HEMOGLOBIN 8.3 G/dl (14.0-18.0)
[2020-11-26 18:57] LABS: BASOPHILS # (AUTO) 0.1 X10'3 (0-0.2); BASOPHILS % (AUTO) 0.6 % (0-1); EOSINOPHILS # (AUTO) 0.5 X10'3 (0-0.9); EOSINOPHILS % (AUTO) 2.3 % (0-6); HEMOGLOBIN 7.5 g/dl (14.0-17.9); LYMPHOCYTES # (AUTO) 0.3 X10'3 (1.1-4.8); LYMPHOCYTES % (AUTO) 1.5 % (21-51); MEAN CORPUSCULAR HEMOGLOBIN 28.5 PG (27.0-31.0); MEAN CORPUSCULAR HGB CONC 32.5 g/dL (33.0-36.5); MEAN CORPUSCULAR VOLUME 87.6 FL (78-98); MEAN PLATELET VOLUME 6.7 FL (7.4-10.4); MONOCYTES # (AUTO) 1.2 X10'3 (0-0.9); MONOCYTES % (AUTO) 5.5 % (2-12); NEUTROPHILS # (AUTO) 19.7 X10'3 (1.8-7.7); NEUTROPHILS % (AUTO) 90.1 % (42-75); PLATELET COUNT 565 X10'3 (140-440); RED BLOOD COUNT 2.62 X10'6 (4.70-6.10); RED CELL DISTRIBUTION WIDTH 17.6 % (11.5-14.5); WHITE BLOOD COUNT 21.8 X10'3 (4.5-11.0)
[2020-11-26] MEDS ORDERED: [UNRECOGNIZED DRUG - OTHER] IV SCH ×14 (19:00→21:00)
[2020-11-26] MEDS ORDERED: FAT EMULSION 20% IV SCH ×14 (19:00→21:00)
[2020-11-26] MEDS ORDERED: CHROMIC CHLORIDE IV SCH ×14 (19:00→21:00)
--- NOTE | 2020-11-26 19:00 | NUR ---
Patient arrived from OR, report rec'd from KATE Noel and Dr. Truong. Patient is intubated and sedated, I will continue to monitor.
[2020-11-26] MEDS: FENTANYL-0.9 % NACL/PF 100 ML IV PRN (19:06)
[2020-11-26 19:11] LABS: PARTIAL THROMBOPLASTIN TIME 32 SECONDS (22-32)
[2020-11-26 19:14] LABS: ALANINE AMINOTRANSFERASE 23 U/L (12-78); ALBUMIN 0.9 G/DL (3.4-5.0); ALBUMIN/GLOBULIN RATIO 0.2 (1.1-1.5); ALKALINE PHOSPHATASE 86 IU/L (46-116); ANION GAP 9 (8-16); ASPARTATE AMINO TRANSFERASE 42 U/L (10-37); BILIRUBIN,TOTAL 0.9 MG/DL (0.1-1.0); BLOOD UREA NITROGEN 13 MG/DL (7-18); CALCIUM 6.8 MG/DL (8.5-10.1); CHLORIDE 106 MMOL/L (99-107); CREATININE 0.81 MG/DL (0.60-1.10); GLUCOSE 103 MG/DL (70-104); MAGNESIUM 1.8 MG/DL (1.5-2.4); POTASSIUM 3.3 MMOL/L (3.5-5.1); SODIUM 139 MMOL/L (135-145); TOTAL CARBON DIOXIDE 23.6 MMOL/L (24-32); TOTAL PROTEIN 4.6 G/DL (6.4-8.2); eGFR > 90 ML/MIN
[2020-11-26] MEDS ORDERED: LIDOcaine 2% (20mg/ml) 5ml vial ONE (19:14)
[2020-11-26] MEDS ORDERED: propofol inj 20 ML IV ONE (19:14)
[2020-11-26] MEDS ORDERED: VANCOMYCIN LEVEL IV ONE (20:30)
[2020-11-26] MEDS: prazosin 5mg capsule PO SCH (21:00)
[2020-11-26] MEDS: traZODone 50mg tablet PO SCH (21:00)
[2020-11-26] MEDS: enoxaparin 40mg/0.4ml syringe SUBCUT SCH (21:21)
[2020-11-27] VITALS (24 sets, daily range): BP systolic 93–149; BP diastolic 53–88
[2020-11-27] MEDS: piperacillin/tazo 4.5gm/100ml 100 ML IV SCH ×3 (01:56→15:37)
[2020-11-27] MEDS ORDERED: acetaminophen 1,000mg/100ml IV 100 ML IV PRN (02:55)
[2020-11-27 03:10] LABS: ALANINE AMINOTRANSFERASE 26 U/L (12-78); ALBUMIN 0.8 G/DL (3.4-5.0); ALBUMIN/GLOBULIN RATIO 0.2 (1.1-1.5); ALKALINE PHOSPHATASE 82 IU/L (46-116); ANION GAP 8 (8-16); ASPARTATE AMINO TRANSFERASE 46 U/L (10-37); BILIRUBIN,TOTAL 0.9 MG/DL (0.1-1.0); BLOOD UREA NITROGEN 11 MG/DL (7-18); BUN/CREATININE RATIO 14.1 (5.4-32.0); CALCIUM 6.9 MG/DL (8.5-10.1); CHLORIDE 104 MMOL/L (99-107); CREATININE 0.78 MG/DL (0.60-1.10); GLUCOSE 124 MG/DL (70-104); MAGNESIUM 2.1 MG/DL (1.5-2.4); PHOSPHORUS 3.1 MG/DL (2.3-4.5); POTASSIUM 3.3 MMOL/L (3.5-5.1); PREALBUMIN 2.7 MG/DL (19-36); SODIUM 135 MMOL/L (135-145); TOTAL PROTEIN 4.6 G/DL (6.4-8.2); TRIGLYCERIDES 128 MG/DL (20-135); eGFR > 90 ML/MIN
[2020-11-27 03:21] LABS: HEMATOCRIT 22.1 % (42.0-52.0); RED BLOOD COUNT 2.53 X10'6 (4.70-6.10); RED CELL DISTRIBUTION WIDTH 18.4 % (11.5-14.5)
[2020-11-27 03:23] LABS: BASOPHILS # (AUTO) 0.1 X10'3 (0-0.2); BASOPHILS % (AUTO) 0.6 % (0-1); EOSINOPHILS # (AUTO) 0.4 X10'3 (0-0.9); EOSINOPHILS % (AUTO) 2.1 % (0-6); HEMOGLOBIN 7.3 g/dl (14.0-17.9); LYMPHOCYTES # (AUTO) 0.6 X10'3 (1.1-4.8); LYMPHOCYTES % (AUTO) 3.1 % (21-51); MEAN CORPUSCULAR HEMOGLOBIN 28.7 PG (27.0-31.0); MEAN CORPUSCULAR HGB CONC 32.8 g/dL (33.0-36.5); MEAN CORPUSCULAR VOLUME 87.5 FL (78-98); MEAN PLATELET VOLUME 7.3 FL (7.4-10.4); MONOCYTES # (AUTO) 1.1 X10'3 (0-0.9); MONOCYTES % (AUTO) 5.8 % (2-12); NEUTROPHILS # (AUTO) 16.8 X10'3 (1.8-7.7); NEUTROPHILS % (AUTO) 88.4 % (42-75); PLATELET COUNT 582 X10'3 (140-440)
[2020-11-27 03:43] LABS: ABG BASE EXCESS -1.3 mmol/L (-2.0-2.0); ABG HCO3 21.3 mmol/L (22.0-26.0); ABG OXYGEN SATURATION 98.7 % (94-97); ABG PCO2 (T) 28.8 mmHg (35.0-48.0); ABG PO2 (T) 133.3 mmHg (75.0-100.0); FCOHb 0.1 % (0.0-3.9); FMetHb 0.5 % (0.0-1.5); FO2Hb 98.1 % (94-97); PATIENT TEMPERATURE 38.2; PEEP 5 cm H2O; RESPIRATORY RATE 12 b/min; TIDAL VOLUME 650 mL; TOTAL HEMOGLOBIN 7.4 G/dl (14.0-18.0)
[2020-11-27] MEDS: FENTANYL-0.9 % NACL/PF 100 ML IV PRN (05:40)
--- NOTE | 2020-11-27 06:31 | NUR ---
Problems reprioritized. Patient report given, questions answered & plan of care reviewed with KATE Juan.
[2020-11-27] MEDS: lactobacillus rhamnosus 10,000 MMU CELLS/CAPSULE PO SCH ×2 (07:33→20:36)
[2020-11-27] MEDS: gabapentin 300mg capsule PO SCH ×3 (07:34→15:30)
[2020-11-27] MEDS: propranolol 10mg tablet PO SCH ×3 (07:34→15:30)
[2020-11-27] MEDS: fluconazole 100mg tablet PO SCH (07:34)
[2020-11-27] MEDS: K and/or MAG REPLACEMENT MC SCH ×2 (08:00→20:00)
[2020-11-27] MEDS: pantoprazole 40 MG vial IV SCH ×2 (08:15→20:36)
[2020-11-27] MEDS: nicotine 21mg patch - 24 hr TD SCH (08:16)
[2020-11-27] MEDS: potassium Cl 40MEQ/250ML bag 270 ML IV PRN (08:20)
[2020-11-27] MEDS ORDERED: VANCOMYCIN 1,500MG inj. 1,500 MG in normal saline 500ml IV soln 300 ML IV SCH (09:00)
[2020-11-27] MEDS ORDERED: VANCOmycin 1250MG/NS 250ml Bag 250 ML IV SCH (09:00)
[2020-11-27] MEDS: NS IV SCH (12:00)
[2020-11-27] MEDS: FLUCONAZOLE IV SCH (12:00)
[2020-11-27] MEDS: HYDROmorphone inj. 0.5 MG/0.5 ML DISP.SYRIN IV PRN ×3 (13:22→23:10)
[2020-11-27] MEDS: CHROMIC CHLORIDE IV SCH ×10 (14:00→14:58)
[2020-11-27] MEDS: FAT EMULSION 20% IV SCH ×10 (14:00→14:58)
[2020-11-27] MEDS: [UNRECOGNIZED DRUG - OTHER] IV SCH ×10 (14:00→14:58)
--- NOTE | 2020-11-27 18:16 | NUR ---
Problems reprioritized. Patient report given, questions answered & plan of care reviewed with Ezio RN.
--- NOTE | 2020-11-27 18:50 | NUR ---
Patient in room ICU 2041. I have received report from Yessica LOVE and had the opportunity to ask questions and assume patient care.
[2020-11-27] MEDS: enoxaparin 40mg/0.4ml syringe SUBCUT SCH (20:33)
[2020-11-27] MEDS: prazosin 5mg capsule PO SCH (20:33)
[2020-11-27] MEDS: traZODone 50mg tablet PO SCH (20:34)
[2020-11-27] MEDS: fentaNYL/PF 50MCG/1 ML 2ML syringe IV PRN (20:37)
[2020-11-28] VITALS (23 sets, daily range): BP systolic 114–139; BP diastolic 70–87
[2020-11-28] MEDS: piperacillin/tazo 4.5gm/100ml 100 ML IV SCH ×3 (00:41→15:13)
[2020-11-28] MEDS: gabapentin 300mg capsule PO SCH ×2 (00:41→07:57)
[2020-11-28] MEDS: cyclobenzaprine 10mg tablet PO PRN (00:41)
[2020-11-28] MEDS: [UNRECOGNIZED DRUG - OTHER] IV SCH ×10 (00:43→11:03)
[2020-11-28] MEDS: FAT EMULSION 20% IV SCH ×10 (00:43→11:03)
[2020-11-28] MEDS: CHROMIC CHLORIDE IV SCH ×10 (00:43→11:03)
[2020-11-28] MEDS: fentaNYL/PF 50MCG/1 ML 2ML syringe IV PRN (03:01)
[2020-11-28] MEDS: propranolol 10mg tablet PO SCH ×3 (03:05→15:12)
[2020-11-28] MEDS: HYDROmorphone inj. 0.5 MG/0.5 ML DISP.SYRIN IV PRN ×3 (05:38→15:00)
--- NOTE | 2020-11-28 06:24 | NUR ---
Problems reprioritized. Patient report given, questions answered & plan of care reviewed with Josseline LOVE .
--- NOTE | 2020-11-28 06:29 | NUR ---
Patient in room ICU 2041. I have received report from KATE Lopez and had the opportunity to ask questions and assume patient care.
[2020-11-28] MEDS: nicotine 21mg patch - 24 hr TD SCH (07:56)
[2020-11-28] MEDS: lactobacillus rhamnosus 10,000 MMU CELLS/CAPSULE PO SCH ×2 (07:57→20:00)
[2020-11-28] MEDS: NS IV SCH (07:58)
[2020-11-28] MEDS: FLUCONAZOLE IV SCH (07:58)
[2020-11-28] MEDS: pantoprazole 40 MG vial IV SCH ×2 (07:58→20:53)
[2020-11-28] MEDS ORDERED: fluconazole-Diflucan 200mg/NS 100 ML IV SCH (08:00)
[2020-11-28 08:57] LABS: BASOPHILS # (AUTO) 0.1 X10'3 (0-0.2); BASOPHILS % (AUTO) 0.5 % (0-1); EOSINOPHILS # (AUTO) 0.4 X10'3 (0-0.9); EOSINOPHILS % (AUTO) 2.8 % (0-6); LYMPHOCYTES # (AUTO) 0.5 X10'3 (1.1-4.8); LYMPHOCYTES % (AUTO) 3.6 % (21-51); MEAN CORPUSCULAR HEMOGLOBIN 28.8 PG (27.0-31.0); MEAN CORPUSCULAR HGB CONC 33.1 g/dL (33.0-36.5); MEAN CORPUSCULAR VOLUME 87.2 FL (78-98); MEAN PLATELET VOLUME 6.8 FL (7.4-10.4); MONOCYTES # (AUTO) 0.9 X10'3 (0-0.9); MONOCYTES % (AUTO) 6.5 % (2-12); NEUTROPHILS # (AUTO) 12.7 X10'3 (1.8-7.7); NEUTROPHILS % (AUTO) 86.6 % (42-75); PLATELET COUNT 530 X10'3 (140-440); RED BLOOD COUNT 2.31 X10'6 (4.70-6.10); RED CELL DISTRIBUTION WIDTH 19.1 % (11.5-14.5); WHITE BLOOD COUNT 14.7 X10'3 (4.5-11.0)
[2020-11-28 09:36] LABS: HEMATOCRIT 20.1 % (42.0-52.0); HEMOGLOBIN 6.7 g/dl (14.0-17.9)
[2020-11-28 09:46] LABS: POTASSIUM 3.1 MMOL/L (3.5-5.1)
[2020-11-28 10:05] LABS: ALANINE AMINOTRANSFERASE 22 U/L (12-78); ALBUMIN 0.8 G/DL (3.4-5.0); ALBUMIN/GLOBULIN RATIO 0.2 (1.1-1.5); ALKALINE PHOSPHATASE 91 IU/L (46-116); ANION GAP 9 (8-16); ASPARTATE AMINO TRANSFERASE 34 U/L (10-37); BILIRUBIN,TOTAL 0.5 MG/DL (0.1-1.0); BLOOD UREA NITROGEN 10 MG/DL (7-18); BUN/CREATININE RATIO 13.9 (5.4-32.0); CALCIUM 7.3 MG/DL (8.5-10.1); CHLORIDE 107 MMOL/L (99-107); CREATININE 0.72 MG/DL (0.60-1.10); GLUCOSE 219 MG/DL (70-104); MAGNESIUM 2.2 MG/DL (1.5-2.4); PHOSPHORUS 2.8 MG/DL (2.3-4.5); SODIUM 142 MMOL/L (135-145); TOTAL CARBON DIOXIDE 26.1 MMOL/L (24-32); TOTAL PROTEIN 5.2 G/DL (6.4-8.2); TRIGLYCERIDES 109 MG/DL (20-135); eGFR > 90 ML/MIN
[2020-11-28 10:42] LABS: ANISOCYTOSIS 2+; HYPOCHROMASIA 1+; PLATELET ESTIMATE INCREASED
[2020-11-28 10:43] LABS: SCHISTOCYTES FEW
[2020-11-28 10:50] LABS: BURR CELLS FEW
[2020-11-28] MEDS: K and/or MAG REPLACEMENT MC SCH ×2 (12:22→20:55)
[2020-11-28] MEDS: LIDOcaine 5% patch TP SCH (13:28)
[2020-11-28] MEDS: gabapentin 100mg capsule PO SCH (15:12)
--- NOTE | 2020-11-28 18:15 | NUR ---
RAPID RESPONSE WAS CALLED , LABS ORDERED, NARCAN X2 GIVEN, , ABGS REVIEWED . PATIENT VS ARE STABLE HOWEVER FEBRILE , IV TYLENOL WAS ORDERED. LACTIC WAS NEGATIVE.
[2020-11-28] MEDS ORDERED: naloxone 0.4 mg/ml inj ONE (18:36)
[2020-11-28 18:43] LABS: ABG HCO3 24.6 mmol/L (22.0-26.0); ABG OXYGEN SATURATION 94.6 % (94-97); ABG PCO2 (T) 36.6 mmHg (35.0-48.0); ABG PO2 (T) 74.1 mmHg (75.0-100.0); ALLEN'S TEST POSITIVE; FCOHb 0.2 % (0.0-3.9); FLOW 2 L/min; FMetHb 0.4 % (0.0-1.5); PATIENT TEMPERATURE 37.9; TOTAL HEMOGLOBIN 8.3 G/dl (14.0-18.0)
[2020-11-28] MEDS ORDERED: naloxone 0.4 mg/ml inj IV ONE (18:45)
[2020-11-28] MEDS ORDERED: acetaminophen 1,000mg/100ml IV 100 ML IV ONE (19:10)
[2020-11-28 19:12] LABS: BASOPHILS # (AUTO) 0.2 X10'3 (0-0.2); BASOPHILS % (AUTO) 1.1 % (0-1); EOSINOPHILS # (AUTO) 0.4 X10'3 (0-0.9); HEMATOCRIT 23.1 % (42.0-52.0); HEMOGLOBIN 7.6 g/dl (14.0-17.9); LYMPHOCYTES # (AUTO) 0.9 X10'3 (1.1-4.8); LYMPHOCYTES % (AUTO) 5.7 % (21-51); MEAN CORPUSCULAR HEMOGLOBIN 28.4 PG (27.0-31.0); MEAN CORPUSCULAR HGB CONC 32.9 g/dL (33.0-36.5); MEAN CORPUSCULAR VOLUME 86.5 FL (78-98); MEAN PLATELET VOLUME 6.8 FL (7.4-10.4); MONOCYTES # (AUTO) 1.1 X10'3 (0-0.9); MONOCYTES % (AUTO) 7.5 % (2-12); NEUTROPHILS # (AUTO) 12.6 X10'3 (1.8-7.7); NEUTROPHILS % (AUTO) 82.7 % (42-75); PLATELET COUNT 505 X10'3 (140-440); RED BLOOD COUNT 2.67 X10'6 (4.70-6.10); RED CELL DISTRIBUTION WIDTH 18.5 % (11.5-14.5); WHITE BLOOD COUNT 15.2 X10'3 (4.5-11.0)
[2020-11-28 19:19] LABS: ALBUMIN 0.9 G/DL (3.4-5.0); ANION GAP 9 (8-16); BLOOD UREA NITROGEN 12 MG/DL (7-18); BUN/CREATININE RATIO 17.1 (5.4-32.0); CALCIUM 7.7 MG/DL (8.5-10.1); CHLORIDE 108 MMOL/L (99-107); GLUCOSE 152 MG/DL (70-104); POTASSIUM 3.4 MMOL/L (3.5-5.1); SODIUM 143 MMOL/L (135-145); TOTAL CARBON DIOXIDE 25.6 MMOL/L (24-32); eGFR > 90 ML/MIN
[2020-11-28] MEDS: ipratropium/albuterol 3ml nebule NEB SCH ×2 (19:20→20:12)
[2020-11-28] MEDS ORDERED: naloxone 0.4 mg/ml inj IV PRN (19:25)
[2020-11-28] MEDS: enoxaparin 40mg/0.4ml syringe SUBCUT SCH (20:00)
[2020-11-28] MEDS ORDERED: VANCOMYCIN LEVEL IV ONE (20:30)
[2020-11-28] MEDS: prazosin 5mg capsule PO SCH (20:55)
[2020-11-28] MEDS ORDERED: traZODone 50mg tablet PO SCH (21:00)
[2020-11-28] MEDS: potassium Cl 40MEQ/250ML bag 270 ML IV PRN (22:47)
[2020-11-29] MEDS: piperacillin/tazo 4.5gm/100ml 100 ML IV SCH ×3 (00:30→16:08)
--- NOTE | 2020-11-29 00:31 | NUR ---
PATIENT UNABLE TO TAKE PO MEDS AT THIS TIME DUE TO LETHARGY .
[2020-11-29 02:00] VITALS: BP 130/85
[2020-11-29] MEDS: HYDROcodone/acetaminophen 7.5MG/325MG per 15ml UD CUP PO PRN ×3 (02:01→13:23)
[2020-11-29] MEDS: ipratropium/albuterol 3ml nebule NEB SCH ×4 (03:15→20:22)
--- NOTE | 2020-11-29 06:18 | NUR ---
Patient in room PCU 3013. I have received report from KATE Walker and had the opportunity to ask questions and assume patient care.
[2020-11-29 07:13] VITALS: BP 129/76
[2020-11-29 07:25] LABS: BASOPHILS # (AUTO) 0.1 X10'3 (0-0.2); BASOPHILS % (AUTO) 0.7 % (0-1); EOSINOPHILS # (AUTO) 0.4 X10'3 (0-0.9); HEMATOCRIT 24.7 % (42.0-52.0); LYMPHOCYTES # (AUTO) 0.8 X10'3 (1.1-4.8); LYMPHOCYTES % (AUTO) 4.4 % (21-51); MEAN CORPUSCULAR HEMOGLOBIN 28.1 PG (27.0-31.0); MEAN CORPUSCULAR HGB CONC 32.3 g/dL (33.0-36.5); MEAN CORPUSCULAR VOLUME 87.2 FL (78-98); MEAN PLATELET VOLUME 6.8 FL (7.4-10.4); MONOCYTES # (AUTO) 1.1 X10'3 (0-0.9); MONOCYTES % (AUTO) 6.4 % (2-12); NEUTROPHILS # (AUTO) 15.4 X10'3 (1.8-7.7); NEUTROPHILS % (AUTO) 86.5 % (42-75); PLATELET COUNT 565 X10'3 (140-440); RED BLOOD COUNT 2.84 X10'6 (4.70-6.10); RED CELL DISTRIBUTION WIDTH 18.9 % (11.5-14.5); WHITE BLOOD COUNT 17.8 X10'3 (4.5-11.0)
[2020-11-29 07:34] LABS: ANION GAP 7 (8-16); CHLORIDE 110 MMOL/L (99-107); POTASSIUM 3.6 MMOL/L (3.5-5.1); SODIUM 143 MMOL/L (135-145); TOTAL CARBON DIOXIDE 26.2 MMOL/L (24-32)
[2020-11-29 07:45] LABS: ALANINE AMINOTRANSFERASE 24 U/L (12-78); ALBUMIN/GLOBULIN RATIO 0.2 (1.1-1.5); ALKALINE PHOSPHATASE 144 IU/L (46-116); ASPARTATE AMINO TRANSFERASE 25 U/L (10-37); BILIRUBIN,TOTAL 0.7 MG/DL (0.1-1.0); BLOOD UREA NITROGEN 13 MG/DL (7-18); BUN/CREATININE RATIO 17.6 (5.4-32.0); CALCIUM 7.7 MG/DL (8.5-10.1); CREATININE 0.74 MG/DL (0.60-1.10); GLUCOSE 124 MG/DL (70-104); MAGNESIUM 2.2 MG/DL (1.5-2.4); PHOSPHORUS 2.9 MG/DL (2.3-4.5); TOTAL PROTEIN 5.9 G/DL (6.4-8.2); eGFR > 90 ML/MIN
[2020-11-29] MEDS: K and/or MAG REPLACEMENT MC SCH ×2 (08:00→20:00)
--- NOTE | 2020-11-29 08:07 | NUR ---
Informed Dr Ludwig of patient condition: PAGER ID: [phone] MESSAGE: janey domínguez rm [id number] FYKilo has met criteria to stop TPN (PO intake, good glucose). TPN stopped per protocol at 0800. Josseline [phone]
[2020-11-29 08:31] LABS: ANISOCYTOSIS 2+; PLATELET ESTIMATE INCREASED; POIKILOCYTOSIS FEW
[2020-11-29] MEDS: pantoprazole 40 MG vial IV SCH ×2 (09:10→21:34)
[2020-11-29] MEDS: nicotine 21mg patch - 24 hr TD SCH (09:12)
[2020-11-29] MEDS: lactobacillus rhamnosus 10,000 MMU CELLS/CAPSULE PO SCH ×2 (09:13→21:32)
[2020-11-29] MEDS: gabapentin 100mg capsule PO SCH ×3 (09:13→16:08)
[2020-11-29] MEDS: propranolol 10mg tablet PO SCH ×3 (09:13→16:08)
[2020-11-29] MEDS: LIDOcaine 5% patch TP SCH (09:14)
[2020-11-29] MEDS: FLUCONAZOLE IV SCH (09:14)
[2020-11-29] MEDS: NS IV SCH (09:14)
--- NOTE | 2020-11-29 10:14 | NUR ---
PICC RN informed this RN that PICC placement is not necessary d/t lack of TPN. Agreed to place PIV. Per Dr. Ludwig, IJ to be discontinued now.
[2020-11-29] MEDS: HYDROmorphone inj. 0.5 MG/0.5 ML DISP.SYRIN IV PRN ×3 (10:43→21:35)
[2020-11-29 11:00] VITALS: BP 115/75
[2020-11-29 15:00] VITALS: BP 102/71
--- NOTE | 2020-11-29 16:15 | NUR ---
Reassessment: Pt s/p BSS with ST recs pureed food with nectar thick liquids. Pt with average 75-100% PO intake meeting estimated nutrient needs. TPN discontinued. Pt A/O x 4 however confused per physical assessment, kiersten-en-y/dumping syndrome nutrition education deferred at this time until pt more oriented. [facility] 11/29. Will continue to follow closely. Rec: 1. Continue pureed diet with nectar thick liquids per ST recs 2. Monitor need for ONS 3. Thiamine, folic acid, MVI for EtOH hx 4. Bowel care per rx 5. Kiersten-en-y/dumping syndrome nutrition educations once stable/appropriate Addendum: 11/29/20 at [address] Amended: Links added.
--- NOTE | 2020-11-29 17:34 | NUR ---
Paged Dr. Ludwig PAGER ID: [phone] MESSAGE: janey domínguez rm [id number] axillary temp 100.3. Has received 4000mg/24hrs. May he receive 650 mg more for fever? Josseline [id number]
[2020-11-29 18:00] VITALS: BP 117/80
--- NOTE | 2020-11-29 18:00 | NUR ---
Patient in room PCU 3013. I have received report from Josseline LOVE and had the opportunity to ask questions and assume patient care with Zay LOVE.
--- NOTE | 2020-11-29 18:39 | NUR ---
Problems reprioritized. Patient report given, questions answered & plan of care reviewed with KATE Bran and KATE Collazo.
[2020-11-29] MEDS: prazosin 5mg capsule PO SCH (21:32)
[2020-11-29] MEDS: enoxaparin 40mg/0.4ml syringe SUBCUT SCH (21:33)
[2020-11-29 22:00] VITALS: BP 160/77
[2020-11-30] MEDS: gabapentin 100mg capsule PO SCH ×3 (00:48→16:22)
[2020-11-30] MEDS: propranolol 10mg tablet PO SCH ×3 (00:48→16:23)
[2020-11-30] MEDS: piperacillin/tazo 4.5gm/100ml 100 ML IV SCH ×3 (00:58→16:22)
[2020-11-30] MEDS: HYDROcodone/acetaminophen 7.5MG/325MG per 15ml UD CUP PO PRN ×4 (01:55→18:30)
[2020-11-30 02:00] VITALS: BP 122/78
[2020-11-30] MEDS: ipratropium/albuterol 3ml nebule NEB SCH ×3 (03:31→13:32)
--- NOTE | 2020-11-30 06:08 | NUR ---
orientee documentation: I have reviewed and agree with all interventions, assessments performed and documented by Yina LOVE.
--- NOTE | 2020-11-30 06:20 | NUR ---
Patient in room PCU 3013. I have received report from Lindsay LOVE and had the opportunity to ask questions and assume patient care.
--- NOTE | 2020-11-30 06:24 | NUR ---
Problems reprioritized. Patient report given, questions answered & plan of care reviewed with Rosanne Kerr RN.
[2020-11-30 06:57] LABS: BASOPHILS # (AUTO) 0.1 X10'3 (0-0.2); BASOPHILS % (AUTO) 0.7 % (0-1); EOSINOPHILS # (AUTO) 0.5 X10'3 (0-0.9); EOSINOPHILS % (AUTO) 3.6 % (0-6); HEMATOCRIT 22.6 % (42.0-52.0); HEMOGLOBIN 7.4 g/dl (14.0-17.9); LYMPHOCYTES # (AUTO) 1.6 X10'3 (1.1-4.8); LYMPHOCYTES % (AUTO) 10.4 % (21-51); MEAN CORPUSCULAR HEMOGLOBIN 28.2 PG (27.0-31.0); MEAN CORPUSCULAR HGB CONC 32.8 g/dL (33.0-36.5); MEAN CORPUSCULAR VOLUME 86.1 FL (78-98); MEAN PLATELET VOLUME 6.9 FL (7.4-10.4); MONOCYTES # (AUTO) 1.3 X10'3 (0-0.9); MONOCYTES % (AUTO) 8.7 % (2-12); NEUTROPHILS # (AUTO) 11.5 X10'3 (1.8-7.7); NEUTROPHILS % (AUTO) 76.6 % (42-75); PLATELET COUNT 579 X10'3 (140-440); RED BLOOD COUNT 2.62 X10'6 (4.70-6.10); RED CELL DISTRIBUTION WIDTH 18.4 % (11.5-14.5)
[2020-11-30 07:00] VITALS: BP 111/69
[2020-11-30 07:03] LABS: ALANINE AMINOTRANSFERASE 22 U/L (12-78); ALBUMIN 0.9 G/DL (3.4-5.0); ALBUMIN/GLOBULIN RATIO 0.2 (1.1-1.5); ALKALINE PHOSPHATASE 112 IU/L (46-116); ANION GAP 10 (8-16); ASPARTATE AMINO TRANSFERASE 18 U/L (10-37); BILIRUBIN,TOTAL 0.6 MG/DL (0.1-1.0); BLOOD UREA NITROGEN 12 MG/DL (7-18); CALCIUM 7.6 MG/DL (8.5-10.1); CHLORIDE 108 MMOL/L (99-107); CREATININE 0.75 MG/DL (0.60-1.10); GLUCOSE 83 MG/DL (70-104); MAGNESIUM 2.1 MG/DL (1.5-2.4); PHOSPHORUS 3.5 MG/DL (2.3-4.5); POTASSIUM 3.3 MMOL/L (3.5-5.1); PREALBUMIN 6.8 MG/DL (19-36); SODIUM 143 MMOL/L (135-145); TOTAL CARBON DIOXIDE 24.8 MMOL/L (24-32); TOTAL PROTEIN 5.9 G/DL (6.4-8.2); TRIGLYCERIDES 102 MG/DL (20-135); eGFR > 90 ML/MIN
[2020-11-30] MEDS: K and/or MAG REPLACEMENT MC SCH (08:00)
[2020-11-30] MEDS: lactobacillus rhamnosus 10,000 MMU CELLS/CAPSULE PO SCH (08:48)
[2020-11-30] MEDS: nicotine 21mg patch - 24 hr TD SCH (08:50)
[2020-11-30] MEDS: pantoprazole 40 MG vial IV SCH (08:51)
[2020-11-30] MEDS: LIDOcaine 5% patch TP SCH (08:51)
[2020-11-30 11:00] VITALS: BP 108/68
[2020-11-30] MEDS ORDERED: magnesium Cl slow-release 64mg tablet PO PRN (11:25)
[2020-11-30] MEDS ORDERED: potassium Cl 40MEQ/1/2NS 520ml 520 ML IV PRN (11:25)
[2020-11-30] MEDS ORDERED: potassium Cl 20 mEq SR tablet PO PRN ×2 (11:25)
[2020-11-30] MEDS ORDERED: magnesium 4gm in 100ml NS 100 ML IV PRN (11:25)
[2020-11-30] MEDS: fluconazole 100mg tablet PO SCH ×2 (11:36→16:22)
[2020-11-30] MEDS: HYDROmorphone inj. 0.5 MG/0.5 ML DISP.SYRIN IV PRN ×2 (12:11→16:17)
[2020-11-30 15:00] VITALS: BP 128/84
--- NOTE | 2020-11-30 15:52 | NUR ---
Problems reprioritized. Patient report given, questions answered & plan of care reviewed with Annmarie LOVE from [facility]..
--- NOTE | 2020-11-30 18:00 | NUR ---
Patient in room PCU 3013. I have received report from Rosanne Kerr and had the opportunity to ask questions and assume patient care.
--- NOTE | 2020-11-30 18:00 | NUR ---
Patient in room PCU 3013. I have received report from Rosanne Lai and had the opportunity to ask questions and assume patient care with Michelle LOVE.
--- NOTE | 2020-11-30 18:01 | NUR ---
Problems reprioritized. Patient report given, questions answered & plan of care reviewed with Lashay LOVE.
--- NOTE | 2020-11-30 18:41 | NUR ---
Disharge Note Patient stable per MD orders. Received report from Rosanne Lai RN. Nurse stated she called report to [facility] to Alyssa LOVE. Nurse stated she provided patient with discharge instructions and follow-up instructions. Nurse stated patient will be transferred via EMS. Oral pain medication given, belongings collected and sent with patient. Patient to be transferred with peripheral IV per [facility] request. [place] and LISSY drains intact, clean and dry abdominal dressing. saw filer discontinued. EMS arrived and transported patient off the unit on a stretcher.
[2020-11-30] MEDS ORDERED: K and/or MAG REPLACEMENT MC SCH (20:00)
[2020-12-01 17:08] LABS: PROTEIN,TOTAL,URINE 14.1 mg/dL (Not Estab.)
== END 2020-11-30 18:40 | DRG 220 ==
LOC: ER 19:26 → ED HOLD 22:08 → PCU 3S 23:00 → ICU 2S 11-15 18:13 → PCU 3S 11-17 17:00 → ICU 2S 11-18 20:45 → PCU 3S 11-28 16:11
PROVIDERS: ADMIT Family Medicine; ATTEND Internal Medicine Critical Care Medicine
PROC: BW211ZZ Computerized Tomography (CT Scan) of Abdomen and Pelvis using Low Osmolar Contrast (ICD-10-PCS; 2020-11-14)
PROC: 04V33DZ Restriction of Hepatic Artery with Intraluminal Device, Percutaneous Approach (ICD-10-PCS; 2020-11-16)
PROC: 0DB70ZZ Excision of Stomach, Pylorus, Open Approach (ICD-10-PCS; 2020-11-19)
PROC: 0DL90ZZ Occlusion of Duodenum, Open Approach (ICD-10-PCS; 2020-11-19)
PROC: 5A1945Z Respiratory Ventilation, 24-96 Consecutive Hours (ICD-10-PCS; 2020-11-19)
PROC: 0BH17EZ Insertion of Endotracheal Airway into Trachea, Via Natural or Artificial Opening (ICD-10-PCS; 2020-11-19)
PROC: 02HV33Z Insertion of Infusion Device into Superior Vena Cava, Percutaneous Approach (ICD-10-PCS; 2020-11-19)
PROC: B548ZZA Ultrasonography of Superior Vena Cava, Guidance (ICD-10-PCS; 2020-11-19)
PROC: 0DH67UZ Insertion of Feeding Device into Stomach, Via Natural or Artificial Opening (ICD-10-PCS; 2020-11-19)
PROC: 3E0G76Z Introduction of Nutritional Substance into Upper GI, Via Natural or Artificial Opening (ICD-10-PCS; 2020-11-19)
PROC: 008Q0ZZ Division of Vagus Nerve, Open Approach (ICD-10-PCS; principal; 2020-11-19 17:39)
PROC: 0FT40ZZ Resection of Gallbladder, Open Approach (ICD-10-PCS; 2020-11-26)
PROC: 0W9F30Z Drainage of Abdominal Wall with Drainage Device, Percutaneous Approach (ICD-10-PCS; 2020-11-26)
PROC: 5A1935Z Respiratory Ventilation, Less than 24 Consecutive Hours (ICD-10-PCS; 2020-11-28)
DX: K26.4 Chronic or unspecified duodenal ulcer with hemorrhage (principal); A41.9 Sepsis, unspecified organism; B18.2 Chronic viral hepatitis C; D62 Acute posthemorrhagic anemia; E78.00 Pure hypercholesterolemia, unspecified; E78.5 Hyperlipidemia, unspecified; F17.210 Nicotine dependence, cigarettes, uncomplicated; F15.90 Other stimulant use, unspecified, uncomplicated; F20.9 Schizophrenia, unspecified; F31.9 Bipolar disorder, unspecified; F43.10 Post-traumatic stress disorder, unspecified; I10 Essential (primary) hypertension; J45.909 Unspecified asthma, uncomplicated; J96.00 Acute respiratory failure, unspecified whether with hypoxia or hypercapnia; K80.00 Calculus of gallbladder with acute cholecystitis without obstruction; G89.29 Other chronic pain; E87.1 Hypo-osmolality and hyponatremia; N13.30 Unspecified hydronephrosis; M54.9 Dorsalgia, unspecified; Z20.822 Contact with and (suspected) exposure to COVID-19; Z59.0 Homelessness; Z82.49 Family history of ischemic heart disease and other diseases of the circulatory system
CPT/HCPCS: 36218; 36245; 36415; 36430; 36600; 37244; 43235; 43239; 49406; 71045; 71260; 74018; 74177; 74181; 75726; 76937; 78278; 80048; 80053; 80202; 81001; 82140; 82150; 82248; 82330; 82803; 82948; 83605; 83690; 83735; 84100; 84132; 84134; 84145; 84156; 84166; 84478; 85007; 85008; 85018; 85025; 85027; 85610; 85730; 86885; 86900; 86901; 86920; 87040; 87070; 87081; 87102; 87426; 92508; 92616; 93005; 94002; 94003; 94640; 94667; 94668; 94760; 94799; 96365; 96375; 97110; 97116; 97124; 97161; 97530; 97535; 99152; 99153; 99285; A4340; A4618; A4620; A6258; A6402; A6446; A7000; A9560; C1758; C1760; C1769; C1894; C9113; G0269; G0378; J0131; J0360; J0694; J0696; J1100; J1170; J1450; J1610; J1642; J1644; J1650; J1885; J2001; J2060; J2250; J2270; J2310; J2354; J2405; J2543; J2704; J3010; J3370; J3411; J3475; J3480; J3490; J7030; J7040; J7120; P9016; P9045; P9059; Q9963; Q9967

== ENCOUNTER 2021-01-05 14:45 | Emergency (ER) | payer MEDICAID ==
[~2021-01-05] VITALS: Ht 172.7 cm; Wt 77.3 kg
[~2021-01-05 14:45] MED LIST changes: -ALBU8.5H8 IH; -CHLO25CA10 PO; -GABA-532 PO; +GABA300C PO; -OLAN10TA19 PO; -PRAZ1CAP5 PO; +PRAZ5CAP PO; -PROM12.512 PO; +PROP10TA10 PO; -RISP1TAB13 PO; -RISP1TAB98 PO; -TRAZ-251 PO; +TRAZ-256 PO
[2021-01-05 15:20] VITALS: BP 124/86
[2021-01-05] MEDS ORDERED: iohexol 300mg/ml 100ml inj. ONE (15:53)
[2021-01-05] MEDS ORDERED: iohexol 300mg/ml 100ml inj. IV ONE (15:55)
== END 2021-01-05 17:40 | disposition home or self-care (01) ==
LOC: ER 14:46
DX: S31.109A Unspecified open wound of abdominal wall, unspecified quadrant without penetration into peritoneal cavity, initial encounter (principal); E78.00 Pure hypercholesterolemia, unspecified; I10 Essential (primary) hypertension; J45.909 Unspecified asthma, uncomplicated; G89.29 Other chronic pain; F31.9 Bipolar disorder, unspecified; F20.9 Schizophrenia, unspecified; F12.90 Cannabis use, unspecified, uncomplicated; Z86.19 Personal history of other infectious and parasitic diseases; Z98.890 Other specified postprocedural states; Z72.89 Other problems related to lifestyle; Z59.0 Homelessness; Z79.899 Other long term (current) drug therapy; X58.XXXA Exposure to other specified factors, initial encounter; Y93.89 Activity, other specified; Y92.89 Other specified places as the place of occurrence of the external cause; Y99.8 Other external cause status
CPT/HCPCS: 74177; 99285; Q9967

== ENCOUNTER 2021-01-14 13:29 | Emergency (ER) | payer MEDICAID ==
[~2021-01-14] VITALS: Ht 175.3 cm; Wt 190.0 kg
[2021-01-14] MEDS ORDERED: normal saline 1000ML IV soln IVB ONE (14:20)
[2021-01-14] MEDS ORDERED: morphine 4 MG/ML inj SYRINge IV ONE (14:20)
[2021-01-14] MEDS ORDERED: ondansetron/PF 4mg/2ml inj IV ONE (14:20)
[2021-01-14 14:27] LABS: EOSINOPHILS % (AUTO) 0.4 % (0-6); MEAN CORPUSCULAR VOLUME 79.5 FL (78-98); MONOCYTES # (AUTO) 0.4 X10'3 (0-0.9)
[2021-01-14 14:29] LABS: BASOPHILS # (AUTO) 0.2 X10'3 (0-0.2); BASOPHILS % (AUTO) 1.9 % (0-1); HEMATOCRIT 35.4 % (42.0-52.0); HEMOGLOBIN 11.7 g/dl (14.0-17.9); LYMPHOCYTES # (AUTO) 2.8 X10'3 (1.1-4.8); LYMPHOCYTES % (AUTO) 33.3 % (21-51); MEAN CORPUSCULAR HEMOGLOBIN 26.2 PG (27.0-31.0); MEAN CORPUSCULAR HGB CONC 32.9 g/dL (33.0-36.5); MEAN PLATELET VOLUME 6.1 FL (7.4-10.4); MONOCYTES % (AUTO) 4.9 % (2-12); NEUTROPHILS % (AUTO) 59.5 % (42-75); PLATELET COUNT 685 X10'3 (140-440); RED BLOOD COUNT 4.45 X10'6 (4.70-6.10); WHITE BLOOD COUNT 8.4 X10'3 (4.5-11.0)
[2021-01-14 14:41] LABS: ALANINE AMINOTRANSFERASE 62 U/L (12-78); ALBUMIN 3.2 G/DL (3.4-5.0); ALBUMIN/GLOBULIN RATIO 0.5 (1.1-1.5); ALKALINE PHOSPHATASE 149 IU/L (46-116); ANION GAP 15 (8-16); ASPARTATE AMINO TRANSFERASE 64 U/L (10-37); BILIRUBIN,TOTAL 0.2 MG/DL (0.1-1.0); BLOOD UREA NITROGEN 6 MG/DL (7-18); CALCIUM 8.4 MG/DL (8.5-10.1); CHLORIDE 105 MMOL/L (99-107); CREATININE 0.75 MG/DL (0.60-1.10); GLUCOSE 97 MG/DL (70-104); POTASSIUM 3.5 MMOL/L (3.5-5.1); SODIUM 141 MMOL/L (135-145); TOTAL CARBON DIOXIDE 21.2 MMOL/L (24-32); TOTAL PROTEIN 9.4 G/DL (6.4-8.2); eGFR > 90 ML/MIN
[2021-01-14 14:44] LABS: LIPASE 206 U/L (73-393)
[2021-01-14 14:47] LABS: ETHANOL 0.389 GM/DL (0.0-0.010)
[2021-01-14 14:52] LABS: PLATELET ESTIMATE INCREASED
[2021-01-14 14:53] LABS: ANISOCYTOSIS 1+; HYPOCHROMASIA 1+; MICROCYTOSIS 1+; POLYCHROMASIA FEW; ROULEAUX 1+; SCHISTOCYTES FEW
--- NOTE | 2021-01-14 15:09 | NUR ---
no urien needed at this time per md Earl
[2021-01-14 15:10] VITALS: BP 101/69
== END 2021-01-14 15:12 | disposition home or self-care (01) ==
LOC: ER 13:30
DX: G89.18 Other acute postprocedural pain (principal); F10.129 Alcohol abuse with intoxication, unspecified; E78.00 Pure hypercholesterolemia, unspecified; I10 Essential (primary) hypertension; F12.90 Cannabis use, unspecified, uncomplicated; J45.909 Unspecified asthma, uncomplicated; G89.29 Other chronic pain; F31.9 Bipolar disorder, unspecified; F20.9 Schizophrenia, unspecified; Z98.890 Other specified postprocedural states; Z59.0 Homelessness; Z79.899 Other long term (current) drug therapy; Y90.0 Blood alcohol level of less than 20 mg/100 ml
CPT/HCPCS: 36415; 80053; 80320; 83690; 85008; 85025; 96374; 96375; 99284; J2270; J2405; J7030

== ENCOUNTER 2021-01-17 04:17 | Emergency (ER) | payer MEDICAID ==
[~2021-01-17] VITALS: Ht 175.3 cm; Wt 72.2 kg
[2021-01-17 04:23] VITALS: BP 129/80
[2021-01-17] MEDS ORDERED: ketorolac trometh inj. 60 MG/2 ML VIAL IM ONE (04:35)
--- NOTE | 2021-01-17 04:49 | NUR ---
Pt presents d/t drainage from a right lower quadrant abdominal wound. Pt notes recent cholecystectomy and bowel resection. Pt AAOX4, no s/sx of acute distress noted at this time. Respirations even, unlabored.
[2021-01-17 05:19] LABS: BASOPHILS # (AUTO) 0.2 X10'3 (0-0.2); BASOPHILS % (AUTO) 1.7 % (0-1); EOSINOPHILS % (AUTO) 0.4 % (0-6); HEMATOCRIT 34.8 % (42.0-52.0); HEMOGLOBIN 11.6 g/dl (14.0-17.9); LYMPHOCYTES # (AUTO) 1.7 X10'3 (1.1-4.8); LYMPHOCYTES % (AUTO) 14.4 % (21-51); MEAN CORPUSCULAR HEMOGLOBIN 26.1 PG (27.0-31.0); MEAN CORPUSCULAR HGB CONC 33.2 g/dL (33.0-36.5); MEAN CORPUSCULAR VOLUME 78.7 FL (78-98); MEAN PLATELET VOLUME 5.9 FL (7.4-10.4); MONOCYTES # (AUTO) 1.1 X10'3 (0-0.9); MONOCYTES % (AUTO) 9.1 % (2-12); NEUTROPHILS # (AUTO) 8.6 X10'3 (1.8-7.7); NEUTROPHILS % (AUTO) 74.4 % (42-75); PLATELET COUNT 583 X10'3 (140-440); RED BLOOD COUNT 4.42 X10'6 (4.70-6.10); RED CELL DISTRIBUTION WIDTH 17.7 % (11.5-14.5); WHITE BLOOD COUNT 11.6 X10'3 (4.5-11.0)
[2021-01-17 05:32] LABS: ALANINE AMINOTRANSFERASE 59 U/L (12-78); ALBUMIN 3.2 G/DL (3.4-5.0); ALBUMIN/GLOBULIN RATIO 0.5 (1.1-1.5); ALKALINE PHOSPHATASE 186 IU/L (46-116); ANION GAP 16 (8-16); ASPARTATE AMINO TRANSFERASE 79 U/L (10-37); BILIRUBIN,TOTAL 0.4 MG/DL (0.1-1.0); BLOOD UREA NITROGEN 6 MG/DL (7-18); BUN/CREATININE RATIO 8.2 (5.4-32.0); CALCIUM 8.1 MG/DL (8.5-10.1); CHLORIDE 102 MMOL/L (99-107); CREATININE 0.73 MG/DL (0.60-1.10); ETHANOL 0.155 GM/DL (0.0-0.010); GLUCOSE 75 MG/DL (70-104); LIPASE 303 U/L (73-393); POTASSIUM 3.6 MMOL/L (3.5-5.1); SODIUM 139 MMOL/L (135-145); TOTAL PROTEIN 9.4 G/DL (6.4-8.2); eGFR > 90 ML/MIN
[2021-01-17 06:10] LABS: ANISOCYTOSIS 1+; MICROCYTOSIS 1+; PLATELET ESTIMATE INCREASED
[2021-01-17] MEDS ORDERED: FAMO-128 PO (06:13)
[2021-01-17] MEDS ORDERED: ONDA4TAB6 PO (06:13)
--- NOTE | 2021-01-17 06:25 | NUR ---
pt yelling in room demanding pain medications. educated pt about plan in ED. pt wated water, educated pt about need to have results from CT and to get md approval.
--- NOTE | 2021-01-17 06:53 | NUR ---
pt stood up in dorrway to room, stated he was just going to leave. Had dr chavez go into room where pt asked for pain meds. Dr chavez stated he has not been evaluated yet and will have to wait and if not he can leave. pt decided to wait.
--- NOTE | 2021-01-17 06:57 | NUR ---
pt stated he doesnt want to wait and is ready to leave. IV removed
[2021-01-18] MEDS ORDERED: AMOX-580 PO (12:44)
== END 2021-01-17 07:03 | disposition home or self-care (01) ==
LOC: ER 04:18
DX: G89.18 Other acute postprocedural pain (principal); F10.129 Alcohol abuse with intoxication, unspecified; E78.00 Pure hypercholesterolemia, unspecified; I10 Essential (primary) hypertension; J45.909 Unspecified asthma, uncomplicated; G89.29 Other chronic pain; F31.9 Bipolar disorder, unspecified; F20.9 Schizophrenia, unspecified; F12.90 Cannabis use, unspecified, uncomplicated; Z90.49 Acquired absence of other specified parts of digestive tract; Z98.890 Other specified postprocedural states; Z59.0 Homelessness; Y90.0 Blood alcohol level of less than 20 mg/100 ml
CPT/HCPCS: 36415; 74176; 80053; 80320; 83690; 84145; 85008; 85025; 96372; 99284; J1885

== ENCOUNTER 2021-01-18 11:17 | Emergency (ER) | payer MEDICAID ==
[~2021-01-18] VITALS: Ht 175.3 cm; Wt 77.3 kg
[~2021-01-18 11:17] MED LIST changes: +FAMO-128 PO; +ONDA4TAB6 PO
[2021-01-18 11:38] VITALS: BP 130/86
[2021-01-18] MEDS ORDERED: amox tr/potassium clavulanate 875/125mg TAB PO ONE (12:20)
[2021-01-18] MEDS ORDERED: oxyCODONE/APAP 5-325mg tablet PO ONE (12:20)
[2021-01-18] MEDS ORDERED: ketorolac tromethamine 15mg/ml inj. IM ONE (12:20)
[2021-01-18] MEDS ORDERED: AMOX-580 PO (12:44)
== END 2021-01-18 13:24 | disposition home or self-care (01) ==
LOC: ER 11:17
DX: G89.18 Other acute postprocedural pain (principal); R10.11 Right upper quadrant pain; K62.5 Hemorrhage of anus and rectum; R19.7 Diarrhea, unspecified; E78.00 Pure hypercholesterolemia, unspecified; I10 Essential (primary) hypertension; J45.909 Unspecified asthma, uncomplicated; G89.29 Other chronic pain; F31.9 Bipolar disorder, unspecified; F20.9 Schizophrenia, unspecified; F12.90 Cannabis use, unspecified, uncomplicated; Z86.19 Personal history of other infectious and parasitic diseases; Z90.49 Acquired absence of other specified parts of digestive tract; Z98.890 Other specified postprocedural states; Z72.89 Other problems related to lifestyle; Z59.0 Homelessness; Z79.2 Long term (current) use of antibiotics; Z79.899 Other long term (current) drug therapy
CPT/HCPCS: 96372; 99283; J1885

== ENCOUNTER 2021-01-21 21:38 | Emergency (ER) | payer MEDICAID ==
[~2021-01-21] VITALS: Ht 175.3 cm; Wt 77.3 kg
[~2021-01-21 21:38] MED LIST changes: +AMOX-580 PO
[2021-01-21] MEDS ORDERED: normal saline 1000ML IV soln IV ONE (22:50)
[2021-01-21 23:00] LABS: EOSINOPHILS # (AUTO) 0.4 X10'3 (0-0.9); MONOCYTES # (AUTO) 0.4 X10'3 (0-0.9); PLATELET COUNT 423 X10'3 (140-440); WHITE BLOOD COUNT 6.7 X10'3 (4.5-11.0)
[2021-01-21 23:02] LABS: BASOPHILS # (AUTO) 0.2 X10'3 (0-0.2); BASOPHILS % (AUTO) 2.4 % (0-1); EOSINOPHILS % (AUTO) 5.3 % (0-6); HEMATOCRIT 31.7 % (42.0-52.0); HEMOGLOBIN 10.6 g/dl (14.0-17.9); LYMPHOCYTES % (AUTO) 30.7 % (21-51); MEAN CORPUSCULAR HEMOGLOBIN 26.8 PG (27.0-31.0); MEAN CORPUSCULAR HGB CONC 33.4 g/dL (33.0-36.5); MEAN CORPUSCULAR VOLUME 80.1 FL (78-98); MEAN PLATELET VOLUME 6.1 FL (7.4-10.4); MONOCYTES % (AUTO) 6.6 % (2-12); NEUTROPHILS # (AUTO) 3.7 X10'3 (1.8-7.7); RED BLOOD COUNT 3.96 X10'6 (4.70-6.10); RED CELL DISTRIBUTION WIDTH 17.6 % (11.5-14.5)
[2021-01-21 23:15] LABS: ALANINE AMINOTRANSFERASE 67 U/L (12-78); ALBUMIN 2.8 G/DL (3.4-5.0); ALBUMIN/GLOBULIN RATIO 0.5 (1.1-1.5); ALKALINE PHOSPHATASE 156 IU/L (46-116); ANION GAP 12 (8-16); ASPARTATE AMINO TRANSFERASE 98 U/L (10-37); BILIRUBIN,TOTAL 0.2 MG/DL (0.1-1.0); BLOOD UREA NITROGEN 3 MG/DL (7-18); BUN/CREATININE RATIO 4.1 (5.4-32.0); CALCIUM 7.4 MG/DL (8.5-10.1); CHLORIDE 107 MMOL/L (99-107); CREATININE 0.74 MG/DL (0.60-1.10); GLUCOSE 92 MG/DL (70-104); LIPASE 319 U/L (73-393); POTASSIUM 3.3 MMOL/L (3.5-5.1); SODIUM 141 MMOL/L (135-145); TOTAL PROTEIN 8.4 G/DL (6.4-8.2); eGFR > 90 ML/MIN
[2021-01-22 00:49] LABS: ETHANOL 0.319 GM/DL (0.0-0.010)
[2021-01-22 00:54] LABS: ANISOCYTOSIS 1+; PLATELET ESTIMATE NORMAL
[2021-01-22 01:04] VITALS: BP 126/81
== END 2021-01-22 01:29 | disposition home or self-care (01) ==
LOC: ER 21:38
DX: G89.18 Other acute postprocedural pain (principal); R10.84 Generalized abdominal pain; F10.129 Alcohol abuse with intoxication, unspecified; E78.00 Pure hypercholesterolemia, unspecified; I10 Essential (primary) hypertension; J45.909 Unspecified asthma, uncomplicated; G89.29 Other chronic pain; F31.9 Bipolar disorder, unspecified; F20.9 Schizophrenia, unspecified; F12.90 Cannabis use, unspecified, uncomplicated; Z86.19 Personal history of other infectious and parasitic diseases; Z90.49 Acquired absence of other specified parts of digestive tract; Z98.890 Other specified postprocedural states; Z72.89 Other problems related to lifestyle; Z59.0 Homelessness; Z79.2 Long term (current) use of antibiotics; Z79.899 Other long term (current) drug therapy; Y90.0 Blood alcohol level of less than 20 mg/100 ml
CPT/HCPCS: 36415; 71045; 80053; 80320; 83605; 83690; 83735; 84145; 85008; 85025; 87040; 93005; 96360; 99285; J7030

== ENCOUNTER 2021-01-30 19:50 | Emergency (ER) | payer MEDICAID ==
[~2021-01-30] VITALS: Ht 175.3 cm; Wt 70.5 kg
[~2021-01-30 19:50] MED LIST changes: -AMOX-580 PO
[2021-01-30 20:10] VITALS: BP 113/78
== END 2021-01-30 23:04 | disposition left against medical advice (07) ==
LOC: ER 19:51
DX: R10.84 Generalized abdominal pain (principal); Z53.21 Procedure and treatment not carried out due to patient leaving prior to being seen by health care provider

== ENCOUNTER 2021-02-01 04:24 | Emergency (ER) | payer MEDICAID ==
[~2021-02-01] VITALS: Ht 175.3 cm; Wt 75.0 kg
[2021-02-01 04:55] VITALS: BP 131/96
--- NOTE | 2021-02-01 05:38 | NUR ---
PT ALREADY BACK TO SLEEP AFTER WALKING TO ROOM FROM [facility]
[2021-02-01] MEDS ORDERED: ibuprofen tablet 400 MG TABLET PO ONE (06:20)
[2021-02-01] MEDS ORDERED: acetaminophen 325mg tablet PO ONE (06:20)
== END 2021-02-01 06:46 | disposition home or self-care (01) ==
LOC: ER 04:27
DX: G89.28 Other chronic postprocedural pain (principal); R10.84 Generalized abdominal pain; E78.00 Pure hypercholesterolemia, unspecified; I10 Essential (primary) hypertension; J45.909 Unspecified asthma, uncomplicated; F31.9 Bipolar disorder, unspecified; F20.9 Schizophrenia, unspecified; F17.200 Nicotine dependence, unspecified, uncomplicated; F12.90 Cannabis use, unspecified, uncomplicated; Z86.19 Personal history of other infectious and parasitic diseases; Z72.89 Other problems related to lifestyle; Z59.0 Homelessness; Z79.899 Other long term (current) drug therapy
CPT/HCPCS: 99283

== ENCOUNTER 2021-02-02 15:18 | Emergency (ER) | payer MEDICAID | END 2021-02-02 16:15 | disposition left against medical advice (07) | LOC: ER 15:18 | DX: Z48.00 Encounter for change or removal of nonsurgical wound dressing (principal); Z53.21 Procedure and treatment not carried out due to patient leaving prior to being seen by health care provider ==

== ENCOUNTER 2021-02-02 18:55 | Emergency (ER) | payer MEDICAID ==
[~2021-02-02] VITALS: Ht 175.3 cm; Wt 66.6 kg
[2021-02-02 19:02] VITALS: BP 121/83
== END 2021-02-02 20:10 | disposition left against medical advice (07) ==
LOC: ER 18:57
DX: Z48.00 Encounter for change or removal of nonsurgical wound dressing (principal); Z53.21 Procedure and treatment not carried out due to patient leaving prior to being seen by health care provider

== ENCOUNTER 2021-02-03 05:32 | Emergency (ER) | payer MEDICAID ==
[~2021-02-03] VITALS: Ht 175.3 cm; Wt 81.0 kg
[2021-02-03 05:51] VITALS: BP 141/95
--- NOTE | 2021-02-03 06:53 | NUR ---
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 aware of LWOBs.
== END 2021-02-03 06:54 | disposition left against medical advice (07) ==
LOC: ER 05:33
DX: Z00.00 Encounter for general adult medical examination without abnormal findings (principal); Z53.21 Procedure and treatment not carried out due to patient leaving prior to being seen by health care provider

== ENCOUNTER 2021-02-06 02:08 | Emergency (ER) | payer MEDICAID | END 2021-02-06 03:59 | disposition left against medical advice (07) | LOC: ER 02:09 | DX: R10.9 Unspecified abdominal pain (principal); Z53.21 Procedure and treatment not carried out due to patient leaving prior to being seen by health care provider ==

== ENCOUNTER 2021-02-12 05:16 | Emergency (ER) | payer MEDICAID ==
[~2021-02-12] VITALS: Ht 177.8 cm; Wt 81.8 kg
[2021-02-12 05:21] VITALS: BP 142/98
== END 2021-02-12 05:45 | disposition left against medical advice (07) ==
LOC: ER 05:16
DX: R10.9 Unspecified abdominal pain (principal); Z53.21 Procedure and treatment not carried out due to patient leaving prior to being seen by health care provider

== ENCOUNTER 2021-03-19 08:44 | Emergency (ER) | payer MEDICAID ==
[~2021-03-19] VITALS: Ht 177.8 cm; Wt 72.7 kg
[2021-03-19 09:02] VITALS: BP 128/62
== END 2021-03-19 09:30 | disposition left against medical advice (07) ==
LOC: ER 08:45
DX: T14.8XXA Other injury of unspecified body region, initial encounter (principal); Z53.21 Procedure and treatment not carried out due to patient leaving prior to being seen by health care provider; X58.XXXA Exposure to other specified factors, initial encounter; Y93.9 Activity, unspecified; Y92.89 Other specified places as the place of occurrence of the external cause; Y99.9 Unspecified external cause status

== ENCOUNTER 2021-04-25 01:51 | Emergency (ER) | payer MEDICAID ==
[~2021-04-25] VITALS: Ht 175.3 cm; Wt 68.8 kg
[2021-04-25 08:21] VITALS: BP 126/88
[2021-04-25 09:35] LABS: URINE AMPHETAMINE SCREEN POSITIVE (Neg); URINE BARBITUATE SCREEN NEGATIVE (Neg); URINE BENZODIAZEPINES SCREEN NEGATIVE (Neg); URINE CANNABINOID SCREEN NEGATIVE (Neg); URINE COCAINE SCREEN NEGATIVE (Neg); URINE METHADONE SCREEN NEGATIVE (Neg); URINE OPIATE SCREEN NEGATIVE (Neg); URINE PHENCYCLIDINE SCREEN NEGATIVE (Neg)
[2021-04-25] MEDS ORDERED: ibuprofen tablet 400 MG TABLET PO ONE (09:35)
[2021-04-25] MEDS ORDERED: SULF1TAB49 PO (09:51)
[2021-04-25] MEDS ORDERED: IBUP-1986 PO (09:51)
== END 2021-04-25 10:20 | disposition home or self-care (01) ==
LOC: ER 01:51
DX: S81.801A Unspecified open wound, right lower leg, initial encounter (principal); R44.1 Visual hallucinations; E78.00 Pure hypercholesterolemia, unspecified; I10 Essential (primary) hypertension; J45.909 Unspecified asthma, uncomplicated; G89.29 Other chronic pain; F31.9 Bipolar disorder, unspecified; F12.90 Cannabis use, unspecified, uncomplicated; Z86.19 Personal history of other infectious and parasitic diseases; Z90.49 Acquired absence of other specified parts of digestive tract; Z98.890 Other specified postprocedural states; Z72.89 Other problems related to lifestyle; Z59.0 Homelessness; Z79.2 Long term (current) use of antibiotics; Z79.899 Other long term (current) drug therapy; X58.XXXA Exposure to other specified factors, initial encounter; Y93.89 Activity, other specified; Y92.89 Other specified places as the place of occurrence of the external cause; Y99.8 Other external cause status
CPT/HCPCS: 80305; 99283

== ENCOUNTER 2021-05-02 22:32 | Emergency (ER) | payer MEDICAID ==
[~2021-05-02 22:32] MED LIST changes: +IBUP-1986 PO; +SULF1TAB49 PO
--- NOTE | 2021-05-02 22:41 | NUR ---
PT CALLED ME OUT TO THE LOBBY. HE WAS UPSET THAT IT WAS TAKING SO LONG, DESPITE HE JUST GOT HERE AND HAS NOT EVEN BEEN TRIAGED YET. THAN HE SAID HE WAS HERE BEFORE, AND THAT HE IS SUPPOSE TO GO TO WOUND CARE AND THAN GOT VERY RUDE AND SAID "WELL, IF YOU GUYS AREN'T GOING TO DO ANYTHING FOR ME, JUST LET ME KNOW." ENCOURAGED PT TO GO TO WOUND CARE OR GO TO URGENT CARE AND MAKE AN APPOINTMENT IF THE ER HAS TOO LONG OF A WAIT FOR HIM, WHICH WOULD BE APPROPRIATE.
== END 2021-05-03 02:13 | disposition left against medical advice (07) ==
LOC: ER 22:33
DX: B99.9 Unspecified infectious disease (principal); Z53.21 Procedure and treatment not carried out due to patient leaving prior to being seen by health care provider

== ENCOUNTER 2021-05-21 01:49 | Inpatient (IN) | payer MEDICAID ==
[~2021-05-21] VITALS: Ht 177.8 cm; Wt 77.3 kg
[~2021-05-21 01:49] MED LIST changes: -SULF1TAB49 PO
[2021-05-21] MEDS ORDERED: ibuprofen tablet 400 MG TABLET PO ONE (04:30)
[2021-05-21] MEDS ORDERED: vancomycin/NS 1 GM ADD-VANTAGE 250 ML IV ONE (05:55)
[2021-05-21] MEDS ORDERED: cefepime 1GM/NS ADD-VANTAGE 100 ML IV ONE (05:55)
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
[2021-05-21 07:28] LABS: BASOPHILS # (AUTO) 0.1 X10'3 (0-0.2); EOSINOPHILS # (AUTO) 0.1 X10'3 (0-0.9); EOSINOPHILS % (AUTO) 2.4 % (0-6); HEMATOCRIT 28.1 % (42.0-52.0); HEMOGLOBIN 9.4 g/dl (14.0-17.9); LYMPHOCYTES # (AUTO) 1.1 X10'3 (1.1-4.8); LYMPHOCYTES % (AUTO) 20.7 % (21-51); MEAN CORPUSCULAR HEMOGLOBIN 27.5 PG (27.0-31.0); MEAN CORPUSCULAR HGB CONC 33.5 g/dL (33.0-36.5); MEAN CORPUSCULAR VOLUME 82.2 FL (78-98); MEAN PLATELET VOLUME 6.2 FL (7.4-10.4); MONOCYTES # (AUTO) 0.5 X10'3 (0-0.9); MONOCYTES % (AUTO) 9.8 % (2-12); NEUTROPHILS # (AUTO) 3.5 X10'3 (1.8-7.7); NEUTROPHILS % (AUTO) 66.1 % (42-75); PLATELET COUNT 427 X10'3 (140-440); RED BLOOD COUNT 3.42 X10'6 (4.70-6.10); WHITE BLOOD COUNT 5.3 X10'3 (4.5-11.0)
[2021-05-21 07:37] LABS: ALBUMIN 2.9 G/DL (3.4-5.0); ANION GAP 12 (8-16); BLOOD UREA NITROGEN 8 MG/DL (7-18); BUN/CREATININE RATIO 10.7 (5.4-32.0); CALCIUM 7.8 MG/DL (8.5-10.1); CHLORIDE 110 MMOL/L (99-107); CREATININE 0.75 MG/DL (0.60-1.10); GLUCOSE 93 MG/DL (70-104); POTASSIUM 3.2 MMOL/L (3.5-5.1); SODIUM 144 MMOL/L (135-145); TOTAL CARBON DIOXIDE 21.8 MMOL/L (24-32); eGFR > 90 ML/MIN
[2021-05-21 07:38] LABS: C-REACTIVE PROTEIN < 0.05 MG/DL (0.0-0.5)
[2021-05-21 08:07] LABS: PLATELET ESTIMATE NORMAL
[2021-05-21 08:08] LABS: ANISOCYTOSIS 2+; HYPOCHROMASIA 1+; POLYCHROMASIA 1+; TARGET CELLS FEW
[2021-05-21] MEDS ORDERED: potassium Cl 20 mEq SR tablet PO PRN ×2 (08:45)
[2021-05-21] MEDS ORDERED: morphine 2 MG/ML inj. syringe IV PRN (08:45)
[2021-05-21] MEDS ORDERED: potassium Cl 40MEQ/1/2NS 520ml 520 ML IV PRN ×2 (08:45)
[2021-05-21] MEDS ORDERED: ondansetron/PF 4mg/2ml inj IV PRN (08:45)
[2021-05-21] MEDS ORDERED: HYDROcodone/acetaminophen 5mg/325mg tablet PO PRN (08:45)
[2021-05-21] MEDS ORDERED: mag hydrox/Alum hydrox/simeth 30ml oral suspension PO PRN (08:45)
[2021-05-21] MEDS ORDERED: acetaminophen 325mg tablet PO PRN ×2 (08:45)
[2021-05-21] MEDS ORDERED: magnesium hydroxide 30ml (MOM) UD suspension PO PRN (08:45)
[2021-05-21] MEDS ORDERED: magnesium 4gm in 100ml NS 100 ML IV PRN (08:45)
[2021-05-21] MEDS ORDERED: magnesium 2GM in 50ml NS 50 ML IV PRN (08:45)
--- NOTE | 2021-05-21 08:55 | NUR ---
PT DIAPHORETIC, TEMP ORAL 97.9. PT REPORTS METH USE 5 days ago and daily etoh use. states he drinks " a lot of beer every day", last drink last night prior to coming to ER. REPORTS PRIOR WITHDRAWL NO SEIZURE.
[2021-05-21] MEDS: normal saline 1000ml 1,000 ML IV SCH ×2 (09:13→20:42)
[2021-05-21] MEDS ORDERED: haloperidol 5mg tablet PO PRN (09:40)
[2021-05-21] MEDS ORDERED: haloperidol lactate 5mg/ml inj IM PRN (09:40)
[2021-05-21] MEDS ORDERED: LORazepam 2 mg/ml vial IV PRN (09:40)
[2021-05-21] MEDS: multivitamins, therapeutics tablet PO SCH (10:11)
[2021-05-21] MEDS: thiamine 100mg tablet PO SCH (10:11)
[2021-05-21] MEDS: nicotine 21mg patch - 24 hr TD SCH ×2 (10:12→16:53)
[2021-05-21] MEDS: folic acid 1mg tablet PO SCH (10:12)
[2021-05-21] MEDS: morphine 2 MG/ML inj. syringe IV PRN ×3 (10:56→20:38)
[2021-05-21] MEDS ORDERED: OLAN10TA73 PO (13:13)
[2021-05-21] MEDS ORDERED: CEPH-194 PO (13:13)
[2021-05-21] MEDS ORDERED: IBUP-1985 PO (13:13)
[2021-05-21] MEDS ORDERED: SULF1TAB45 PO (13:13)
[2021-05-21] MEDS ORDERED: CYCL-1 PO (13:20)
[2021-05-21] MEDS ORDERED: ALBU17AE26 IH (13:20)
[2021-05-21] MEDS ORDERED: MOME13HF3 PO (13:20)
[2021-05-21] MEDS ORDERED: GABA-530 PO (13:20)
[2021-05-21] MEDS ORDERED: GADOTERATE MEGLUMINE 7.5 MMOL/15 ML VIAL IV ONE (13:27)
[2021-05-21] MEDS: cefepime 1GM/NS ADD-VANTAGE 100 ML IV SCH ×2 (16:29→23:17)
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
--- NOTE | 2021-05-21 16:52 | NUR ---
Patient in room . I have received report from Nery LOVE from ED and had the opportunity to ask questions and assume patient care.
[2021-05-21] MEDS ORDERED: cyclobenzaprine 10mg tablet PO PRN (17:40)
--- NOTE | 2021-05-21 18:35 | NUR ---
Patient in room DIEGO 347A. I have received report from KATE Cool and had the opportunity to ask questions and assume patient care.
[2021-05-21 20:00] VITALS: BP 141/86
[2021-05-21] MEDS: K and/or MAG REPLACEMENT MC SCH (20:00)
[2021-05-21] MEDS ORDERED: enoxaparin 40mg/0.4ml syringe SQ SCH (20:00)
[2021-05-21] MEDS ORDERED: VANCOmycin 1250MG/NS 250ml Bag 250 ML IV SCH (20:00)
[2021-05-21] MEDS: ibuprofen 200mg tablet PO SCH (20:34)
[2021-05-21] MEDS: gabapentin 300mg capsule PO SCH (20:34)
[2021-05-21] MEDS: docusate sod 100mg capsule PO SCH (20:34)
[2021-05-21] MEDS: budesonide 0.5mg/2ml UD nebule IH SCH (20:53)
[2021-05-22] VITALS: BP 110/70
[2021-05-22] MEDS: morphine 2 MG/ML inj. syringe IV PRN (04:32)
[2021-05-22] MEDS: normal saline 1000ml 1,000 ML IV SCH (04:33)
[2021-05-22 06:05] LABS: BASOPHILS % (AUTO) 0.2 % (0-1); EOSINOPHILS # (AUTO) 0.2 X10'3 (0-0.9); EOSINOPHILS % (AUTO) 4.9 % (0-6); HEMATOCRIT 32.6 % (42.0-52.0); HEMOGLOBIN 10.3 g/dl (14.0-17.9); LYMPHOCYTES # (AUTO) 0.9 X10'3 (1.1-4.8); LYMPHOCYTES % (AUTO) 20.6 % (21-51); MEAN CORPUSCULAR HGB CONC 31.7 g/dL (33.0-36.5); MEAN CORPUSCULAR VOLUME 85.3 FL (78-98); MEAN PLATELET VOLUME 6.4 FL (7.4-10.4); MONOCYTES # (AUTO) 0.5 X10'3 (0-0.9); MONOCYTES % (AUTO) 11.5 % (2-12); NEUTROPHILS # (AUTO) 2.8 X10'3 (1.8-7.7); NEUTROPHILS % (AUTO) 62.8 % (42-75); PLATELET COUNT 400 X10'3 (140-440); RED BLOOD COUNT 3.82 X10'6 (4.70-6.10); WHITE BLOOD COUNT 4.5 X10'3 (4.5-11.0)
[2021-05-22 06:22] LABS: ALANINE AMINOTRANSFERASE 58 U/L (12-78); ALBUMIN 2.6 G/DL (3.4-5.0); ALBUMIN/GLOBULIN RATIO 0.6 (1.1-1.5); ALKALINE PHOSPHATASE 127 IU/L (46-116); ANION GAP 11 (8-16); ASPARTATE AMINO TRANSFERASE 65 U/L (10-37); BILIRUBIN,TOTAL 0.3 MG/DL (0.1-1.0); BLOOD UREA NITROGEN 9 MG/DL (7-18); BUN/CREATININE RATIO 9.6 (5.4-32.0); CHLORIDE 112 MMOL/L (99-107); CREATININE 0.94 MG/DL (0.60-1.10); GLUCOSE 133 MG/DL (70-104); LIPASE 352 U/L (73-393); PHOSPHORUS 2.6 MG/DL (2.3-4.5); POTASSIUM 3.4 MMOL/L (3.5-5.1); SODIUM 144 MMOL/L (135-145); TOTAL CARBON DIOXIDE 20.8 MMOL/L (24-32); eGFR 83 ML/MIN
--- NOTE | 2021-05-22 06:28 | NUR ---
Patient in room DIEGO 347. I have received report from Cinthia LOVE with [facility] LOVE and had the opportunity to ask questions and assume patient care.
--- NOTE | 2021-05-22 06:34 | NUR ---
Problems reprioritized. Patient report given, questions answered & plan of care reviewed with KATE Cool.
--- NOTE | 2021-05-22 06:56 | NUR ---
Patient in room DIEGO 347. I have received report from Cinthia LOVE and had the opportunity to ask questions and assume patient care.
[2021-05-22 08:00] VITALS: BP 137/43
[2021-05-22] MEDS ORDERED: vancomycin/NS 1 GM ADD-VANTAGE 250 ML IV SCH (08:00)
[2021-05-22] MEDS: budesonide 0.5mg/2ml UD nebule IH SCH (08:00)
[2021-05-22] MEDS: cefepime 1GM/NS ADD-VANTAGE 100 ML IV SCH (08:07)
[2021-05-22] MEDS: ibuprofen 200mg tablet PO SCH ×2 (08:08→12:21)
[2021-05-22] MEDS: thiamine 100mg tablet PO SCH (08:08)
[2021-05-22] MEDS: folic acid 1mg tablet PO SCH (08:08)
[2021-05-22] MEDS: docusate sod 100mg capsule PO SCH (08:08)
[2021-05-22] MEDS: gabapentin 300mg capsule PO SCH ×2 (08:09→12:20)
[2021-05-22] MEDS: multivitamins, therapeutics tablet PO SCH (08:09)
[2021-05-22] MEDS: nicotine 21mg patch - 24 hr TD SCH (08:10)
[2021-05-22] MEDS: HYDROcodone/acetaminophen 10/325mg tab PO PRN ×2 (08:11→12:21)
[2021-05-22] MEDS: K and/or MAG REPLACEMENT MC SCH (08:22)
--- NOTE | 2021-05-22 11:27 | NUR ---
Malnutrition consult: Pt reports 2-13 lb wt loss with decreased appetite per malnutrition risk screen with RN. Pt with scaled wt hx of 81-83.8 kg taken 11/16-11/30, current documented wt is 77.27 kg however is not scaled. Noted pt s/p carin-en-y revision at previous admit 11/19, likely to result in some wt loss. Pt currently on a heart healthy diet documented with 100% PO intake. Pt with no documented significant decrease in muscle strength or edema. Pt currently lacks a minimum of two criteria for malnutrition. Noted pt admit for chronic right knee wound. Wound care has been consulted, pending assessment at this time. D/w dietary to send double protein TID for satiety and increased protein needs. Noted pt receiving routine Thiamine, Folic acid, and MVI for EtOH hx. Will continue to follow and monitor need for further nutrition intervention pending wound care assessment and additional trends in PO intake. Addendum: 05/22/21 at [address] Amended: Links added.
[2021-05-22 11:56] VITALS: BP 144/97
[2021-05-22] MEDS ORDERED: HYDR-3972 PO (12:57)
[2021-05-22] MEDS ORDERED: CEPH-194 PO (12:57)
[2021-05-22] MEDS ORDERED: CLIN-97 PO (12:57)
--- NOTE | 2021-05-22 13:42 | NUR ---
Wound care note: Wound care was asked to see patient regarding his right knee. Patient stated over 2 months ago he had an I & D done to his knee from an abscess. He has sutures that had not been removed. Today presents with a wide open area that is with some exudate. I cleaned the outside of the wound with saline, obtained a wound culture, then applied wound cleanser to the wound and everardo wound. Barrier spray was placed to the everardo wound, and therahoney alginate applied to the wound bed covered with gauze and kerlix. Patient was eduated on signs of infection and symptoms to report to physician or go to the ER or [facility]. He has an outpatient appt on Friday with wound care. Wound measures 5cm x2.5cm x 0.5cm with a 1cm ATC undermining. No bogginess was noted, scant amount of purulent drainage noted. RECOMMEND: 1. Daily bathing with no rinse skin cleanser. 2. Cream/Lotion to be applied to skin after bathing. 3. Wound care to right knee. Clean with wound cleanser, apply barrier spray then add therahoney to alginate and place to the wound bed, covered with gauze and kerlix roll. To be changed Q2-3 days. 4. F/U in outpatient wound center appt on Friday.
--- NOTE | 2021-05-22 15:00 | NUR ---
Pt DC, pt is homeless. Pt is A & O x4 and in no apparent distress. Pt verbalizes understanding of ALL DC orders and wound care. pt educated about aseptic wound care and dressing change by wound care. Supplies were given as well. An appointment was made for him on Friday at 1100 am for out pt wound care. pt's wound was changed and clean. pt's IV was removed intact. pt dress himself and got ready to go. pt was given a cane to help him support his injured leg. Pt understands all DC orders and states he will comply with all DC orders.
[2021-05-23] MEDS ORDERED: VANCOMYCIN LEVEL IV ONE (07:30)
[2021-05-23] MEDS ORDERED: LORazepam 1 MG tablet PO PRN (09:40)
[2021-05-23] MEDS ORDERED: LORazepam 2 mg/ml vial IV PRN (09:40)
[2021-05-25] MEDS ORDERED: LORazepam 1 MG tablet PO PRN (09:40)
[2021-05-25] MEDS ORDERED: LORazepam 2 mg/ml vial IV PRN (09:40)
== END 2021-05-22 15:00 | disposition home or self-care (01) | DRG 384 ==
LOC: ER 01:50 → SUR 3N 08:50 → ER 17:36 → SUR 3N 05-22 08:48
PROVIDERS: ADMIT Family Medicine; ATTEND Family Medicine
DX: S81.001A Unspecified open wound, right knee, initial encounter (principal); B19.20 Unspecified viral hepatitis C without hepatic coma; D64.9 Anemia, unspecified; F31.9 Bipolar disorder, unspecified; F20.9 Schizophrenia, unspecified; E78.00 Pure hypercholesterolemia, unspecified; F12.90 Cannabis use, unspecified, uncomplicated; F43.10 Post-traumatic stress disorder, unspecified; E78.5 Hyperlipidemia, unspecified; F17.210 Nicotine dependence, cigarettes, uncomplicated; E87.6 Hypokalemia; J44.9 Chronic obstructive pulmonary disease, unspecified; X58.XXXA Exposure to other specified factors, initial encounter; G89.4 Chronic pain syndrome; F10.20 Alcohol dependence, uncomplicated; I10 Essential (primary) hypertension; Z59.0 Homelessness; Z90.49 Acquired absence of other specified parts of digestive tract; Z79.899 Other long term (current) drug therapy; Z71.6 Tobacco abuse counseling; Y93.89 Activity, other specified; Y92.89 Other specified places as the place of occurrence of the external cause; Y99.8 Other external cause status
CPT/HCPCS: 36415; 73700; 73723; 80048; 80053; 82948; 83605; 83690; 83735; 84100; 84145; 85008; 85025; 85610; 85651; 86140; 87040; 87070; 87075; 87081; 94640; 94760; 96365; 96366; 96367; 96368; 96375; 97116; 97162; 97530; 99285; A9575; G0378; J0692; J1650; J2060; J2270; J3370; J3480; J7030; J7626

== ENCOUNTER 2021-05-31 17:17 | Emergency (ER) | payer MEDICAID ==
[~2021-05-31] VITALS: Ht 154.9 cm; Wt 71.7 kg
[~2021-05-31 17:17] MED LIST changes: +ALBU17AE26 IH; +CEPH-194 PO; +CLIN-97 PO; +CYCL-1 PO; -FAMO-128 PO; +GABA-530 PO; -GABA300C PO; +HYDR-3972 PO; +IBUP-1985 PO; -IBUP-1986 PO; +MOME13HF3 PO; -ONDA4TAB6 PO; -PRAZ5CAP PO; -PROP10TA10 PO; -TRAZ-256 PO
[2021-05-31 17:31] VITALS: BP 114/78
[2021-06-01] MEDS ORDERED: CEPH-194 PO (06:03)
[2021-06-01] MEDS ORDERED: CLIN-97 PO (06:03)
== END 2021-06-01 00:17 | disposition left against medical advice (07) ==
LOC: ER 17:18
DX: M25.561 Pain in right knee (principal); Z53.21 Procedure and treatment not carried out due to patient leaving prior to being seen by health care provider

== ENCOUNTER 2021-06-01 05:15 | Emergency (ER) | payer MEDICAID ==
[~2021-06-01] VITALS: Ht 177.8 cm; Wt 79.5 kg
[2021-06-01] MEDS ORDERED: ibuprofen tablet 400 MG TABLET PO ONE (05:40)
[2021-06-01] MEDS ORDERED: acetaminophen 325mg tablet PO ONE (05:40)
[2021-06-01] MEDS ORDERED: CEPH-194 PO (06:03)
[2021-06-01] MEDS ORDERED: CLIN-97 PO (06:03)
[2021-06-01 06:35] VITALS: BP 153/93
[2021-06-01 08:23] LABS: BASOPHILS % (AUTO) 1.1 % (0-1); EOSINOPHILS % (AUTO) 0.2 % (0-6); HEMATOCRIT 34.2 % (42.0-52.0); HEMOGLOBIN 11.2 g/dl (14.0-17.9); LYMPHOCYTES # (AUTO) 0.7 X10'3 (1.1-4.8); LYMPHOCYTES % (AUTO) 15.7 % (21-51); MEAN CORPUSCULAR HGB CONC 32.9 g/dL (33.0-36.5); MEAN CORPUSCULAR VOLUME 79.2 FL (78-98); MEAN PLATELET VOLUME 6.1 FL (7.4-10.4); MONOCYTES # (AUTO) 0.7 X10'3 (0-0.9); MONOCYTES % (AUTO) 15.3 % (2-12); NEUTROPHILS # (AUTO) 2.9 X10'3 (1.8-7.7); NEUTROPHILS % (AUTO) 67.7 % (42-75); PLATELET COUNT 274 X10'3 (140-440); RED BLOOD COUNT 4.32 X10'6 (4.70-6.10); RED CELL DISTRIBUTION WIDTH 20.3 % (11.5-14.5); WHITE BLOOD COUNT 4.3 X10'3 (4.5-11.0)
[2021-06-01 08:54] LABS: ALANINE AMINOTRANSFERASE 70 U/L (12-78); ALBUMIN 3.6 G/DL (3.4-5.0); ALBUMIN/GLOBULIN RATIO 0.6 (1.1-1.5); ALKALINE PHOSPHATASE 187 IU/L (46-116); ANION GAP 14 (8-16); ASPARTATE AMINO TRANSFERASE 109 U/L (10-37); BILIRUBIN,TOTAL 0.3 MG/DL (0.1-1.0); BLOOD UREA NITROGEN 10 MG/DL (7-18); BUN/CREATININE RATIO 13.5 (5.4-32.0); CALCIUM 8.4 MG/DL (8.5-10.1); CHLORIDE 104 MMOL/L (99-107); CREATININE 0.74 MG/DL (0.60-1.10); GLUCOSE 78 MG/DL (70-104); POTASSIUM 4.1 MMOL/L (3.5-5.1); SODIUM 139 MMOL/L (135-145); TOTAL CARBON DIOXIDE 20.7 MMOL/L (24-32); TOTAL PROTEIN 9.4 G/DL (6.4-8.2); eGFR > 90 ML/MIN
== END 2021-06-01 09:16 | disposition home or self-care (01) ==
LOC: ER 05:15
DX: U07.1 COVID-19 (principal); S02.2XXA Fracture of nasal bones, initial encounter for closed fracture; I60.9 Nontraumatic subarachnoid hemorrhage, unspecified; E78.00 Pure hypercholesterolemia, unspecified; I10 Essential (primary) hypertension; J45.909 Unspecified asthma, uncomplicated; G89.29 Other chronic pain; F31.9 Bipolar disorder, unspecified; F20.9 Schizophrenia, unspecified; F12.90 Cannabis use, unspecified, uncomplicated; Z86.19 Personal history of other infectious and parasitic diseases; Z90.49 Acquired absence of other specified parts of digestive tract; Z98.890 Other specified postprocedural states; Z72.89 Other problems related to lifestyle; Z59.0 Homelessness; Z79.2 Long term (current) use of antibiotics; Z79.899 Other long term (current) drug therapy; X58.XXXA Exposure to other specified factors, initial encounter; Y93.89 Activity, other specified; Y92.89 Other specified places as the place of occurrence of the external cause; Y99.8 Other external cause status
CPT/HCPCS: 70450; 71045; 80053; 85025; 85610; 87635; 99285; C9803

== ENCOUNTER 2021-06-17 04:19 | Emergency (ER) | payer MEDICAID ==
[~2021-06-17] VITALS: Ht 177.8 cm; Wt 79.5 kg
[2021-06-17] MEDS ORDERED: acetaminophen 325mg tablet PO ONE (04:50)
[2021-06-17 06:53] VITALS: BP 148/92
--- NOTE | 2021-06-17 07:11 | NUR ---
Pt right knee cleaned with NS and dry dressing applied
== END 2021-06-17 07:13 | disposition home or self-care (01) ==
LOC: ER 04:19
DX: S06.5X9A Traumatic subdural hemorrhage with loss of consciousness of unspecified duration, initial encounter (principal); S81.001D Unspecified open wound, right knee, subsequent encounter; M25.522 Pain in left elbow; I10 Essential (primary) hypertension; E78.00 Pure hypercholesterolemia, unspecified; J45.909 Unspecified asthma, uncomplicated; F20.9 Schizophrenia, unspecified; Y04.8XXA Assault by other bodily force, initial encounter; Y93.9 Activity, unspecified; Y92.89 Other specified places as the place of occurrence of the external cause; Y99.8 Other external cause status; Z56.0 Unemployment, unspecified; F31.9 Bipolar disorder, unspecified
CPT/HCPCS: 70450; 99284

== ENCOUNTER 2021-06-19 07:17 | Emergency (ER) | payer MEDICAID ==
[~2021-06-19] VITALS: Ht 177.8 cm; Wt 70.6 kg
[2021-06-19 07:18] VITALS: BP 148/104
[2021-06-19] MEDS ORDERED: oxyCODONE/APAP 5-325mg tablet PO ONE (08:00)
== END 2021-06-19 09:21 | disposition home or self-care (01) ==
LOC: ER 07:17
DX: T33.522A Superficial frostbite of left hand, initial encounter (principal); E78.00 Pure hypercholesterolemia, unspecified; I10 Essential (primary) hypertension; J45.909 Unspecified asthma, uncomplicated; G89.29 Other chronic pain; F12.90 Cannabis use, unspecified, uncomplicated; Z86.19 Personal history of other infectious and parasitic diseases; Z98.890 Other specified postprocedural states; Z90.49 Acquired absence of other specified parts of digestive tract; Z59.00 Homelessness unspecified; Z79.2 Long term (current) use of antibiotics; Z79.899 Other long term (current) drug therapy
CPT/HCPCS: 99283

== ENCOUNTER 2021-06-22 18:34 | Emergency (ER) | payer MEDICAID ==
[~2021-06-22] VITALS: Ht 177.8 cm; Wt 37.2 kg
--- NOTE | 2021-06-22 21:08 | NUR ---
pt was called to in room assignment . pt cursing at this recorder bc he was awoken . security called for non emergnment , pt removed himself from the floor and sat in chair for next in room assignment
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
[2021-06-22 23:40] VITALS: BP 115/82
== END 2021-06-23 01:05 | disposition home or self-care (01) ==
LOC: ER 18:35
DX: S06.5X9A Traumatic subdural hemorrhage with loss of consciousness of unspecified duration, initial encounter (principal); S00.83XA Contusion of other part of head, initial encounter; R10.84 Generalized abdominal pain; R51.9 Headache, unspecified; E78.00 Pure hypercholesterolemia, unspecified; I10 Essential (primary) hypertension; J45.909 Unspecified asthma, uncomplicated; G89.29 Other chronic pain; F31.9 Bipolar disorder, unspecified; F20.9 Schizophrenia, unspecified; F12.90 Cannabis use, unspecified, uncomplicated; Z86.19 Personal history of other infectious and parasitic diseases; Z90.49 Acquired absence of other specified parts of digestive tract; Z98.890 Other specified postprocedural states; Z72.89 Other problems related to lifestyle; Z59.00 Homelessness unspecified; Z79.2 Long term (current) use of antibiotics; Z79.899 Other long term (current) drug therapy; Y08.89XA Assault by other specified means, initial encounter; Y93.89 Activity, other specified; Y92.89 Other specified places as the place of occurrence of the external cause; Y99.8 Other external cause status
CPT/HCPCS: 70450; 71046; 72125; 99285

== ENCOUNTER 2021-06-24 18:51 | Emergency (ER) | payer MEDICAID ==
[~2021-06-24] VITALS: Ht 177.8 cm; Wt 84.1 kg
[2021-06-24 18:53] VITALS: BP 141/79
[2021-06-25] MEDS ORDERED: CEPH-585 PO (23:02)
== END 2021-06-25 00:46 | disposition left against medical advice (07) ==
LOC: ER 18:51
DX: R45.851 Suicidal ideations (principal); Z53.21 Procedure and treatment not carried out due to patient leaving prior to being seen by health care provider

== ENCOUNTER 2021-06-25 19:40 | Emergency (ER) | payer MEDICAID ==
[~2021-06-25] VITALS: Ht 177.8 cm; Wt 84.1 kg
[2021-06-25 19:58] VITALS: BP 126/93
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
[2021-06-25] MEDS ORDERED: CEPH-585 PO (23:02)
== END 2021-06-25 23:36 | disposition home or self-care (01) ==
LOC: ER 19:41
DX: S81.002A Unspecified open wound, left knee, initial encounter (principal); E78.00 Pure hypercholesterolemia, unspecified; I10 Essential (primary) hypertension; J45.909 Unspecified asthma, uncomplicated; F31.9 Bipolar disorder, unspecified; F30.9 Manic episode, unspecified; F17.210 Nicotine dependence, cigarettes, uncomplicated; F12.10 Cannabis abuse, uncomplicated; Z56.0 Unemployment, unspecified; X58.XXXA Exposure to other specified factors, initial encounter; Y93.89 Activity, other specified; Y92.89 Other specified places as the place of occurrence of the external cause; Y99.8 Other external cause status
CPT/HCPCS: 99283

== ENCOUNTER 2021-06-29 06:07 | Emergency (ER) | payer MEDICAID ==
[~2021-06-29] VITALS: Ht 177.8 cm; Wt 84.1 kg
[~2021-06-29 06:07] MED LIST changes: +CEPH-585 PO
[2021-06-29 06:14] VITALS: BP 117/79
[2021-06-29] MEDS ORDERED: HYDROcodone/acetaminophen 5mg/325mg tablet PO ONE (07:00)
== END 2021-06-29 09:01 | disposition home or self-care (01) ==
LOC: ER 06:08
DX: Z02.89 Encounter for other administrative examinations (principal); R06.02 Shortness of breath; R07.89 Other chest pain; E78.00 Pure hypercholesterolemia, unspecified; I10 Essential (primary) hypertension; J45.909 Unspecified asthma, uncomplicated; G89.29 Other chronic pain; F31.9 Bipolar disorder, unspecified; F20.9 Schizophrenia, unspecified; F12.90 Cannabis use, unspecified, uncomplicated; Z86.19 Personal history of other infectious and parasitic diseases; Z90.49 Acquired absence of other specified parts of digestive tract; Z98.890 Other specified postprocedural states; Z72.89 Other problems related to lifestyle; Z59.00 Homelessness unspecified; Z79.2 Long term (current) use of antibiotics; Z79.899 Other long term (current) drug therapy
CPT/HCPCS: 71045; 99283

== ENCOUNTER 2021-07-09 04:18 | Emergency (ER) | payer MEDICAID, OTHER ==
[~2021-07-09] VITALS: Ht 177.8 cm; Wt 84.1 kg
[2021-07-09 05:30] VITALS: BP 122/92
[2021-07-17] MEDS ORDERED: IBUP-1984 PO (15:39)
[2021-07-17] MEDS ORDERED: CEPH250T PO (15:39)
== END 2021-07-09 09:27 | disposition left against medical advice (07) ==
LOC: ER 04:18
DX: M25.561 Pain in right knee (principal); Z53.21 Procedure and treatment not carried out due to patient leaving prior to being seen by health care provider

== ENCOUNTER 2021-07-13 02:40 | Emergency (ER) | payer SELFPAY ==
[~2021-07-13] VITALS: Ht 177.8 cm; Wt 70.5 kg
[2021-07-13 04:17] VITALS: BP 128/93
[2021-07-14] MEDS ORDERED: APIX5TAB3 PO (06:26)
[2021-07-17] MEDS ORDERED: CEPH250T PO (15:39)
[2021-07-17] MEDS ORDERED: IBUP-1984 PO (15:39)
== END 2021-07-13 08:44 | disposition left against medical advice (07) ==
LOC: ER 02:42
DX: L02.416 Cutaneous abscess of left lower limb (principal); M79.642 Pain in left hand; E78.00 Pure hypercholesterolemia, unspecified; I10 Essential (primary) hypertension; J45.909 Unspecified asthma, uncomplicated; G89.29 Other chronic pain; F12.90 Cannabis use, unspecified, uncomplicated; Z86.19 Personal history of other infectious and parasitic diseases; Z90.49 Acquired absence of other specified parts of digestive tract; Z72.89 Other problems related to lifestyle; Z59.00 Homelessness unspecified; Z79.2 Long term (current) use of antibiotics; Z79.899 Other long term (current) drug therapy
CPT/HCPCS: 73130; 73560; 99284

== ENCOUNTER 2021-07-13 21:02 | Emergency (ER) | payer SELFPAY ==
[~2021-07-13] VITALS: Ht 177.8 cm; Wt 71.8 kg
[2021-07-13 22:01] VITALS: BP 143/93
--- NOTE | 2021-07-13 22:17 | NUR ---
pt wandering in hallway, asked by staff to not do so and go back to assigned room. pt stated "nah, I don't have to" and grabbed items and went to lobby. pt exited department.
[2021-07-14] MEDS ORDERED: APIX5TAB3 PO (06:26)
[2021-07-17] MEDS ORDERED: IBUP-1984 PO (15:39)
[2021-07-17] MEDS ORDERED: CEPH250T PO (15:39)
== END 2021-07-13 22:44 | disposition left against medical advice (07) ==
LOC: ER 21:03
DX: M79.606 Pain in leg, unspecified (principal); Z53.21 Procedure and treatment not carried out due to patient leaving prior to being seen by health care provider

== ENCOUNTER 2021-07-14 01:03 | Emergency (ER) | payer OTHER ==
[~2021-07-14] VITALS: Ht 177.8 cm; Wt 72.5 kg
[2021-07-14] MEDS ORDERED: heparin 25,000 UNIT/250ml bag 250 ML IV SCH (03:10)
[2021-07-14] MEDS ORDERED: heparin 10,000 units/1 ML INJ IV PRN (03:10)
[2021-07-14] MEDS ORDERED: heparin 10,000 units/1 ML INJ IV ONE ×2 (03:10→03:15)
[2021-07-14] MEDS ORDERED: CefTRIAXone/D5W-Rocephin 1gm 50 ML IV ONE (03:45)
[2021-07-14] MEDS ORDERED: HYDROcodone/acetaminophen 5mg/325mg tablet PO ONE (04:10)
[2021-07-14] MEDS ORDERED: iohexol 350MG/ML 100ml bottle IV ONE (04:24)
[2021-07-14 04:25] LABS: ALBUMIN 3.3 G/DL (3.4-5.0); ANION GAP 17 (8-16); BLOOD UREA NITROGEN 7 MG/DL (7-18); BUN/CREATININE RATIO 8.9 (5.4-32.0); CALCIUM 8.1 MG/DL (8.5-10.1); CHLORIDE 101 MMOL/L (99-107); CREATININE 0.79 MG/DL (0.60-1.10); GLUCOSE 69 MG/DL (70-104); POTASSIUM 3.4 MMOL/L (3.5-5.1); SODIUM 140 MMOL/L (135-145); TOTAL CARBON DIOXIDE 21.6 MMOL/L (24-32); eGFR > 90 ML/MIN
[2021-07-14 04:29] LABS: PARTIAL THROMBOPLASTIN TIME 28 SECONDS (22-32)
[2021-07-14 04:43] LABS: BASOPHILS # (AUTO) 0.1 X10'3 (0-0.2); EOSINOPHILS # (AUTO) 0.1 X10'3 (0-0.9); EOSINOPHILS % (AUTO) 1.9 % (0-6); HEMATOCRIT 33.7 % (42.0-52.0); HEMOGLOBIN 11.1 g/dl (14.0-17.9); LYMPHOCYTES # (AUTO) 1.2 X10'3 (1.1-4.8); LYMPHOCYTES % (AUTO) 15.2 % (21-51); MEAN CORPUSCULAR VOLUME 75.8 FL (78-98); MEAN PLATELET VOLUME 6.5 FL (7.4-10.4); MONOCYTES # (AUTO) 0.4 X10'3 (0-0.9); MONOCYTES % (AUTO) 5.5 % (2-12); NEUTROPHILS % (AUTO) 76.4 % (42-75); PLATELET COUNT 226 X10'3 (140-440); RED BLOOD COUNT 4.44 X10'6 (4.70-6.10); RED CELL DISTRIBUTION WIDTH 21.7 % (11.5-14.5); WHITE BLOOD COUNT 7.8 X10'3 (4.5-11.0)
[2021-07-14 06:18] LABS: ANISOCYTOSIS 3+; MICROCYTOSIS 1+; PLATELET ESTIMATE NORMAL; POIKILOCYTOSIS FEW
[2021-07-14] MEDS ORDERED: APIX5TAB3 PO (06:26)
[2021-07-14 07:29] VITALS: BP 127/89
[2021-07-17] MEDS ORDERED: IBUP-1984 PO (15:39)
[2021-07-17] MEDS ORDERED: CEPH250T PO (15:39)
== END 2021-07-14 07:33 | disposition home or self-care (01) ==
LOC: ER 01:03
DX: I73.1 Thromboangiitis obliterans [Buerger's disease] (principal); M25.561 Pain in right knee; G89.29 Other chronic pain; E78.00 Pure hypercholesterolemia, unspecified; I10 Essential (primary) hypertension; J45.909 Unspecified asthma, uncomplicated; F31.9 Bipolar disorder, unspecified; F20.9 Schizophrenia, unspecified; F12.90 Cannabis use, unspecified, uncomplicated; Z86.19 Personal history of other infectious and parasitic diseases; Z98.890 Other specified postprocedural states; Z72.89 Other problems related to lifestyle; Z59.00 Homelessness unspecified; Z79.2 Long term (current) use of antibiotics; Z79.899 Other long term (current) drug therapy
CPT/HCPCS: 73206; 80048; 85008; 85025; 85610; 85730; 96365; 96366; 96368; 96375; 99285; J0696; J1644; Q9967

== ENCOUNTER → 2021-07-17 | Emergency (ER) | payer OTHER ==
[~2021-07-17] VITALS: Ht 170.2 cm; Wt 100.0 kg
[~2021-07-17] MED LIST changes: +APIX5TAB3 PO; +CEPH250T PO; +HYDR28CR14 TOP; +IBUP-1984 PO; +cephalexin 250mg capsule PO ONE; +ketorolac tromethamine 15mg/ml inj. IM ONE
[2021-07-17 15:28] VITALS: BP 142/87
--- NOTE | 2021-07-17 18:12 | NUR ---
PT CALLED TO INFORM THAT HE LEFT THE ER THIS AFTERNOON WITHOUT HIS DC INSTRUCTIONS AND RX FOR PAIN AND ABX. PT'S PHONE# ON RECORD WAS NOT IN SERVICE
== END | disposition home or self-care (01) ==
LOC: ER 15:15
DX: M25.561 Pain in right knee (principal); L08.9 Local infection of the skin and subcutaneous tissue, unspecified; E78.00 Pure hypercholesterolemia, unspecified; I10 Essential (primary) hypertension; J45.909 Unspecified asthma, uncomplicated; G89.29 Other chronic pain; F31.9 Bipolar disorder, unspecified; F20.9 Schizophrenia, unspecified; F12.90 Cannabis use, unspecified, uncomplicated; Z86.19 Personal history of other infectious and parasitic diseases; Z90.49 Acquired absence of other specified parts of digestive tract; Z98.890 Other specified postprocedural states; Z72.89 Other problems related to lifestyle; Z59.00 Homelessness unspecified; Z79.2 Long term (current) use of antibiotics; Z79.899 Other long term (current) drug therapy
CPT/HCPCS: 99283

== ENCOUNTER 2021-07-18 11:23 | Emergency (ER) | payer OTHER ==
[~2021-07-18] VITALS: Ht 177.8 cm; Wt 84.1 kg
[~2021-07-18 11:23] MED LIST changes: -HYDR28CR14 TOP; -cephalexin 250mg capsule PO ONE; -ketorolac tromethamine 15mg/ml inj. IM ONE
[2021-07-18 11:52] VITALS: BP 144/93
[2021-07-18] MEDS ORDERED: ketorolac tromethamine 15mg/ml inj. IM ONE (11:55)
[2021-07-18] MEDS ORDERED: CEPH250T PO (12:08)
[2021-07-18] MEDS ORDERED: IBUP-1984 PO (12:08)
== END 2021-07-18 12:49 | disposition home or self-care (01) ==
LOC: ER 11:23
DX: M54.50 Low back pain, unspecified (principal); G89.29 Other chronic pain; E78.00 Pure hypercholesterolemia, unspecified; I10 Essential (primary) hypertension; J45.909 Unspecified asthma, uncomplicated; F31.9 Bipolar disorder, unspecified; F20.9 Schizophrenia, unspecified; F12.90 Cannabis use, unspecified, uncomplicated; Z86.19 Personal history of other infectious and parasitic diseases; Z90.49 Acquired absence of other specified parts of digestive tract; Z98.890 Other specified postprocedural states; Z72.89 Other problems related to lifestyle; Z59.00 Homelessness unspecified; Z79.2 Long term (current) use of antibiotics; Z79.899 Other long term (current) drug therapy
CPT/HCPCS: 96372; 99283; J1885

== ENCOUNTER 2021-07-22 19:58 | Emergency (ER) | payer OTHER ==
[~2021-07-22] VITALS: Ht 177.8 cm; Wt 70.7 kg
[2021-07-22] MEDS ORDERED: IBUP-1984 PO (21:41)
[2021-07-22] MEDS ORDERED: CEPH-585 PO (21:41)
[2021-07-22] MEDS ORDERED: cephalexin 500mg capsule PO ONE (21:45)
[2021-07-22] MEDS ORDERED: ibuprofen 200mg tablet PO ONE (21:45)
[2021-07-22] MEDS ORDERED: HYDR28CR14 TOP (22:01)
[2021-07-22 22:15] VITALS: BP 112/65
== END 2021-07-22 22:17 | disposition home or self-care (01) ==
LOC: ER 19:58
DX: L03.115 Cellulitis of right lower limb (principal); E78.00 Pure hypercholesterolemia, unspecified; I10 Essential (primary) hypertension; J45.909 Unspecified asthma, uncomplicated; G89.29 Other chronic pain; F31.9 Bipolar disorder, unspecified; F20.9 Schizophrenia, unspecified; F17.210 Nicotine dependence, cigarettes, uncomplicated; F12.10 Cannabis abuse, uncomplicated; Z59.00 Homelessness unspecified; Z79.899 Other long term (current) drug therapy
CPT/HCPCS: 99283; 99284

== ENCOUNTER 2021-08-03 15:29 | Emergency (ER) | payer MEDICAID, OTHER ==
[~2021-08-03] VITALS: Ht 177.8 cm; Wt 81.8 kg
[~2021-08-03 15:29] MED LIST changes: +HYDR28CR14 TOP; -IBUP-1984 PO
[2021-08-03 16:31] VITALS: BP 150/97
[2021-08-03] MEDS ORDERED: triamcinolone acet 0.1% cream 15gm TP STA (16:40)
[2021-08-03] MEDS ORDERED: mupirocin 2% ointment 22GM TP STA (16:40)
[2021-08-03] MEDS ORDERED: HYDROcodone/acetaminophen 10/325mg tab PO ONE (16:40)
[2021-08-03] MEDS ORDERED: MUPI22OI30 TOP (16:50)
[2021-08-03] MEDS ORDERED: TRAM50TA2 PO (16:50)
[2021-08-03] MEDS ORDERED: TRIA15OI9 TOP (16:50)
== END 2021-08-03 18:50 | disposition home or self-care (01) ==
LOC: ER 15:30
DX: S81.001A Unspecified open wound, right knee, initial encounter (principal); L03.012 Cellulitis of left finger; M79.645 Pain in left finger(s); E78.00 Pure hypercholesterolemia, unspecified; I10 Essential (primary) hypertension; J45.909 Unspecified asthma, uncomplicated; G89.29 Other chronic pain; F31.9 Bipolar disorder, unspecified; F20.9 Schizophrenia, unspecified; F12.90 Cannabis use, unspecified, uncomplicated; Z90.49 Acquired absence of other specified parts of digestive tract; Z86.19 Personal history of other infectious and parasitic diseases; Z98.890 Other specified postprocedural states; Z72.89 Other problems related to lifestyle; Z59.00 Homelessness unspecified; Z79.2 Long term (current) use of antibiotics; Z79.899 Other long term (current) drug therapy; X58.XXXA Exposure to other specified factors, initial encounter; Y93.89 Activity, other specified; Y92.89 Other specified places as the place of occurrence of the external cause; Y99.8 Other external cause status
CPT/HCPCS: 99283

== ENCOUNTER 2021-09-12 01:59 | Emergency (ER) | payer MEDICAID ==
[~2021-09-12] VITALS: Ht 177.8 cm; Wt 81.8 kg
[~2021-09-12 01:59] MED LIST changes: +TRIA15OI9 TOP
[2021-09-12] MEDS ORDERED: ketorolac trometh. 30mg/ml inj. IM ONE (02:30)
[2021-09-12] MEDS ORDERED: acetaminophen 325mg tablet PO ONE (02:35)
[2021-09-12] MEDS ORDERED: metoclopramide 10mg tablet PO ONE (02:35)
[2021-09-12] MEDS ORDERED: gabapentin 400mg capsule PO ONE (02:35)
[2021-09-12] MEDS ORDERED: ACET-1025 PO (02:51)
[2021-09-12] MEDS ORDERED: APIX5TAB3 PO (02:51)
[2021-09-12 03:50] VITALS: BP 133/86
== END 2021-09-12 03:53 | disposition home or self-care (01) ==
LOC: ER 01:59
DX: M79.642 Pain in left hand (principal); M79.641 Pain in right hand; G62.9 Polyneuropathy, unspecified; E78.00 Pure hypercholesterolemia, unspecified; I10 Essential (primary) hypertension; J45.909 Unspecified asthma, uncomplicated; G89.29 Other chronic pain; F31.9 Bipolar disorder, unspecified; F20.9 Schizophrenia, unspecified; F12.90 Cannabis use, unspecified, uncomplicated; Z86.19 Personal history of other infectious and parasitic diseases; Z90.49 Acquired absence of other specified parts of digestive tract; Z72.89 Other problems related to lifestyle; Z59.00 Homelessness unspecified; Z79.2 Long term (current) use of antibiotics; Z79.899 Other long term (current) drug therapy
CPT/HCPCS: 73110; 73130; 96372; 99284; J1885

== ENCOUNTER 2021-10-01 05:06 | Emergency (ER) | payer MEDICAID ==
[~2021-10-01] VITALS: Ht 177.8 cm; Wt 84.1 kg
[2021-10-01 05:23] VITALS: BP 109/65
[2021-10-01] MEDS ORDERED: HYDROcodone/acetaminophen 10/325mg tab PO ONE (05:50)
== END 2021-10-01 06:38 | disposition home or self-care (01) ==
LOC: ER 05:07
DX: R07.89 Other chest pain (principal); E78.00 Pure hypercholesterolemia, unspecified; I10 Essential (primary) hypertension; J45.909 Unspecified asthma, uncomplicated; G89.29 Other chronic pain; F31.9 Bipolar disorder, unspecified; F20.9 Schizophrenia, unspecified; F12.90 Cannabis use, unspecified, uncomplicated; Z86.19 Personal history of other infectious and parasitic diseases; Z90.49 Acquired absence of other specified parts of digestive tract; Z98.890 Other specified postprocedural states; Z72.89 Other problems related to lifestyle; Z59.00 Homelessness unspecified; Z79.2 Long term (current) use of antibiotics; Z79.899 Other long term (current) drug therapy
CPT/HCPCS: 71046; 99284

== ENCOUNTER 2021-10-16 02:34 | Emergency (ER) | payer MEDICAID ==
[~2021-10-16] VITALS: Ht 172.7 cm; Wt 81.8 kg
[2021-10-16 02:47] VITALS: BP 132/85
== END 2021-10-16 03:30 | disposition home or self-care (01) ==
LOC: ER 02:35
DX: L98.499 Non-pressure chronic ulcer of skin of other sites with unspecified severity (principal); E78.00 Pure hypercholesterolemia, unspecified; I10 Essential (primary) hypertension; J45.909 Unspecified asthma, uncomplicated; G89.29 Other chronic pain; F31.9 Bipolar disorder, unspecified; F20.9 Schizophrenia, unspecified; F12.90 Cannabis use, unspecified, uncomplicated; Z86.19 Personal history of other infectious and parasitic diseases; Z90.49 Acquired absence of other specified parts of digestive tract; Z98.890 Other specified postprocedural states; Z72.89 Other problems related to lifestyle; Z59.00 Homelessness unspecified; Z79.2 Long term (current) use of antibiotics; Z79.899 Other long term (current) drug therapy
CPT/HCPCS: 99282

== ENCOUNTER 2021-10-19 04:01 | Emergency (ER) | payer MEDICAID ==
[~2021-10-19] VITALS: Ht 170.2 cm; Wt 88.6 kg
[2021-10-19 04:15] VITALS: BP 153/104
== END 2021-10-19 05:17 | disposition home or self-care (01) ==
LOC: ER 04:02
DX: Z76.89 Persons encountering health services in other specified circumstances (principal); M25.531 Pain in right wrist; E78.00 Pure hypercholesterolemia, unspecified; I10 Essential (primary) hypertension; J45.909 Unspecified asthma, uncomplicated; G89.29 Other chronic pain; F31.9 Bipolar disorder, unspecified; F20.9 Schizophrenia, unspecified; F12.90 Cannabis use, unspecified, uncomplicated; Z86.19 Personal history of other infectious and parasitic diseases; Z90.49 Acquired absence of other specified parts of digestive tract; Z98.890 Other specified postprocedural states; Z72.89 Other problems related to lifestyle; Z59.00 Homelessness unspecified; Z79.2 Long term (current) use of antibiotics; Z79.899 Other long term (current) drug therapy
CPT/HCPCS: 99282

== ENCOUNTER 2021-11-01 18:10 | Emergency (ER) | payer MEDICAID ==
[~2021-11-01] VITALS: Ht 177.8 cm; Wt 81.8 kg
[2021-11-01 18:17] VITALS: BP 149/115
== END 2021-11-01 20:39 | disposition left against medical advice (07) ==
LOC: ER 18:11
DX: M79.603 Pain in arm, unspecified (principal); Z53.21 Procedure and treatment not carried out due to patient leaving prior to being seen by health care provider

== ENCOUNTER 2021-11-03 10:28 | Emergency (ER) | payer MEDICAID ==
[~2021-11-03] VITALS: Ht 180.3 cm; Wt 81.8 kg
[2021-11-03 10:33] VITALS: BP 140/85
[2021-11-03] MEDS ORDERED: HYDROcodone/acetaminophen 10/325mg tab PO ONE (11:10)
[2021-11-03] MEDS ORDERED: IBUP-1984 PO (11:15)
== END 2021-11-03 12:12 | disposition home or self-care (01) ==
LOC: ER 10:29
DX: M25.531 Pain in right wrist (principal); M79.644 Pain in right finger(s); R20.0 Anesthesia of skin; R53.1 Weakness; E78.00 Pure hypercholesterolemia, unspecified; I10 Essential (primary) hypertension; J45.909 Unspecified asthma, uncomplicated; F12.90 Cannabis use, unspecified, uncomplicated; G89.29 Other chronic pain; Z86.19 Personal history of other infectious and parasitic diseases; Z90.49 Acquired absence of other specified parts of digestive tract; Z72.89 Other problems related to lifestyle; Z79.2 Long term (current) use of antibiotics; Z79.899 Other long term (current) drug therapy; Z79.01 Long term (current) use of anticoagulants
CPT/HCPCS: 29125; 99283

== ENCOUNTER 2021-11-26 08:16 | Emergency (ER) | payer MEDICAID ==
[~2021-11-26] VITALS: Ht 177.8 cm; Wt 79.1 kg
[2021-11-26 08:28] VITALS: BP 142/105
== END 2021-11-27 07:43 | disposition left against medical advice (07) ==
LOC: ER 08:17
DX: Z53.21 Procedure and treatment not carried out due to patient leaving prior to being seen by health care provider (principal)

== ENCOUNTER 2022-02-07 09:43 | Emergency (ER) | payer MEDICAID ==
[~2022-02-07] VITALS: Ht 177.8 cm; Wt 85.0 kg
[2022-02-07 10:25] VITALS: BP 117/83
--- NOTE | 2022-02-07 11:19 | NUR ---
PT ABLE TO AMBULATE W/O ASSIST
== END 2022-02-07 11:24 | disposition home or self-care (01) ==
LOC: ER 09:44
DX: S06.5X0A Traumatic subdural hemorrhage without loss of consciousness, initial encounter (principal); S00.83XA Contusion of other part of head, initial encounter; F10.129 Alcohol abuse with intoxication, unspecified; E78.00 Pure hypercholesterolemia, unspecified; I10 Essential (primary) hypertension; J45.909 Unspecified asthma, uncomplicated; F31.9 Bipolar disorder, unspecified; F12.90 Cannabis use, unspecified, uncomplicated; F20.9 Schizophrenia, unspecified; Z86.19 Personal history of other infectious and parasitic diseases; Z90.49 Acquired absence of other specified parts of digestive tract; Z98.890 Other specified postprocedural states; Z79.899 Other long term (current) drug therapy; Z79.01 Long term (current) use of anticoagulants; W18.39XA Other fall on same level, initial encounter; Y93.89 Activity, other specified; Y92.89 Other specified places as the place of occurrence of the external cause; Y99.8 Other external cause status; Y90.9 Presence of alcohol in blood, level not specified
CPT/HCPCS: 70450; 99284

== ENCOUNTER 2022-02-07 16:51 | Emergency (ER) | payer MEDICAID | END 2022-02-07 19:25 | disposition left against medical advice (07) | LOC: ER 16:51 | DX: M79.18 Myalgia, other site (principal); Z53.21 Procedure and treatment not carried out due to patient leaving prior to being seen by health care provider ==

== ENCOUNTER 2022-05-13 08:43 | Emergency (ER) | payer MEDICAID ==
[~2022-05-13] VITALS: Ht 180.3 cm; Wt 75.0 kg
[2022-05-13] MEDS ORDERED: normal saline 1000ML IV soln IVB ONE ×2 (09:40→10:00)
--- NOTE | 2022-05-13 09:41 | NUR ---
RECEIVED VERBAL ORDER FROM ANSON RYAN FOR ZOFRAN 4MG IV X1 DOSE TO PREVENT NAUSEA. ORDER PLACED RECEIVED
[2022-05-13] MEDS ORDERED: ondansetron/PF 4mg/2ml inj IV ONE (09:45)
[2022-05-13 10:03] LABS: BASOPHILS # (AUTO) 0.1 X10'3 (0-0.2); EOSINOPHILS # (AUTO) 0.4 X10'3 (0-0.9); EOSINOPHILS % (AUTO) 5.3 % (0-6); HEMOGLOBIN 12.6 g/dl (14.0-17.9); LYMPHOCYTES # (AUTO) 1.6 X10'3 (1.1-4.8); LYMPHOCYTES % (AUTO) 20.9 % (21-51); MEAN CORPUSCULAR HEMOGLOBIN 26.7 PG (27.0-31.0); MEAN CORPUSCULAR HGB CONC 33.2 g/dL (33.0-36.5); MEAN CORPUSCULAR VOLUME 80.6 FL (78-98); MEAN PLATELET VOLUME 8.7 FL (7.4-10.4); MONOCYTES % (AUTO) 12.8 % (2-12); NEUTROPHILS # (AUTO) 4.7 X10'3 (1.8-7.7); PLATELET COUNT 201 X10'3 (140-440); RED BLOOD COUNT 4.72 X10'6 (4.70-6.10); WHITE BLOOD COUNT 7.9 X10'3 (4.5-11.0)
--- NOTE | 2022-05-13 10:06 | NUR ---
XRAY AT BS
[2022-05-13 10:08] LABS: ALANINE AMINOTRANSFERASE 17 U/L (12-78); ALBUMIN 3.4 G/DL (3.4-5.0); ALBUMIN/GLOBULIN RATIO 0.7 (1.1-1.5); ALKALINE PHOSPHATASE 104 IU/L (46-116); ANION GAP 10 (8-16); ASPARTATE AMINO TRANSFERASE 25 U/L (10-37); BILIRUBIN,TOTAL 0.2 MG/DL (0.1-1.0); BLOOD UREA NITROGEN 10 MG/DL (7-18); BUN/CREATININE RATIO 11.8 (5.4-32.0); CALCIUM 8.5 MG/DL (8.5-10.1); CHLORIDE 111 MMOL/L (99-107); CREATININE 0.85 MG/DL (0.60-1.10); GLUCOSE 100 MG/DL (70-104); POTASSIUM 3.9 MMOL/L (3.5-5.1); SODIUM 144 MMOL/L (135-145); eGFR > 90 ML/MIN
[2022-05-13 10:12] LABS: ETHANOL < 0.010 GM/DL (0.0-0.010)
[2022-05-13 10:28] LABS: ANISOCYTOSIS 3+; LARGE PLATELETS FEW; PLATELET ESTIMATE NORMAL
[2022-05-13 10:41] LABS: URINE AMPHETAMINE SCREEN POSITIVE (Neg); URINE BARBITUATE SCREEN NEGATIVE (Neg); URINE BENZODIAZEPINES SCREEN POSITIVE (Neg); URINE CANNABINOID SCREEN POSITIVE (Neg); URINE COCAINE SCREEN NEGATIVE (Neg); URINE METHADONE SCREEN NEGATIVE (Neg); URINE OPIATE SCREEN NEGATIVE (Neg); URINE PHENCYCLIDINE SCREEN NEGATIVE (Neg)
[2022-05-13 10:43] VITALS: BP 125/91
--- NOTE | 2022-05-13 10:57 | NUR ---
PT FAMILY/FRIEND AT BEDSIDE
--- NOTE | 2022-05-13 12:29 | NUR ---
GIVEN FOOD TRAY WITH MD PERMISSION
== END 2022-05-13 12:49 | disposition home or self-care (01) ==
LOC: ER 08:44
DX: F19.10 Other psychoactive substance abuse, uncomplicated (principal); E78.00 Pure hypercholesterolemia, unspecified; I10 Essential (primary) hypertension; J45.909 Unspecified asthma, uncomplicated; G89.29 Other chronic pain; F31.9 Bipolar disorder, unspecified; F20.9 Schizophrenia, unspecified; F12.90 Cannabis use, unspecified, uncomplicated; Z86.19 Personal history of other infectious and parasitic diseases; Z90.49 Acquired absence of other specified parts of digestive tract; Z98.890 Other specified postprocedural states; Z72.89 Other problems related to lifestyle; Z59.00 Homelessness unspecified; Z79.2 Long term (current) use of antibiotics; Z79.899 Other long term (current) drug therapy; W19.XXXA Unspecified fall, initial encounter; Y93.89 Activity, other specified; Y92.89 Other specified places as the place of occurrence of the external cause; Y99.8 Other external cause status
CPT/HCPCS: 36415; 70450; 71045; 72125; 80053; 80305; 80320; 82948; 84484; 85008; 85025; 93005; 96361; 96374; 99285; J2405; J7030; A4314

== ENCOUNTER 2022-05-14 19:03 | Emergency (ER) | payer SELFPAY | END 2022-05-14 19:47 | disposition left against medical advice (07) | LOC: ER 19:04 | DX: M79.603 Pain in arm, unspecified (principal); Z53.21 Procedure and treatment not carried out due to patient leaving prior to being seen by health care provider ==

== ENCOUNTER 2022-05-17 06:45 | Emergency (ER) | payer MEDICAID ==
[~2022-05-17] VITALS: Ht 177.8 cm; Wt 77.8 kg
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
[2022-05-17] MEDS ORDERED: ibuprofen tablet 400 MG TABLET PO ONE (07:20)
[2022-05-17 07:51] VITALS: BP 125/86
--- NOTE | 2022-05-17 07:54 | NUR ---
Pt given and understands d/c instructions. Ambulatory with a slow steady gait.
--- NOTE | 2022-05-17 09:15 | NUR ---
Officer called and spoke with KATE Sorto. Officer stated, "I will go look for him."
== END 2022-05-17 07:55 | disposition home or self-care (01) ==
LOC: ER 06:46
DX: S90.01XA Contusion of right ankle, initial encounter (principal); X58.XXXA Exposure to other specified factors, initial encounter; Y93.89 Activity, other specified; Y92.89 Other specified places as the place of occurrence of the external cause; Y99.8 Other external cause status
CPT/HCPCS: 73610; 99283

== ENCOUNTER 2022-07-27 21:55 | Emergency (ER) | payer MEDICAID ==
[~2022-07-27] VITALS: Ht 175.3 cm; Wt 84.1 kg
[~2022-07-27 21:55] MED LIST changes: -CEPH-585 PO; -CEPH250T PO
[2022-07-27 22:03] VITALS: BP 151/91
--- NOTE | 2022-07-27 22:30 | NUR ---
Pt not in lobby, however, belongings left behind.
--- NOTE | 2022-07-27 23:31 | NUR ---
Pt returned to lobby. Discussed importance of waiting in lobby to expedite assessment. Also instructed to keep belongings with him at all times; we are not responsible for lost/ stolen belongings. Pt communicated understanding.
[2022-07-28] MEDS ORDERED: CEPH250T PO (01:54)
[2022-07-28] MEDS ORDERED: ketorolac trometh inj. 60 MG/2 ML VIAL IM ONE (01:55)
[2022-07-28] MEDS ORDERED: cephalexin 250mg capsule PO ONE (01:55)
== END 2022-07-28 02:53 | disposition home or self-care (01) ==
LOC: ER 21:56
DX: L08.9 Local infection of the skin and subcutaneous tissue, unspecified (principal); E78.00 Pure hypercholesterolemia, unspecified; I10 Essential (primary) hypertension; J45.909 Unspecified asthma, uncomplicated; G89.29 Other chronic pain; F31.9 Bipolar disorder, unspecified; F20.9 Schizophrenia, unspecified; F12.90 Cannabis use, unspecified, uncomplicated; Z90.49 Acquired absence of other specified parts of digestive tract; Z86.19 Personal history of other infectious and parasitic diseases; Z98.890 Other specified postprocedural states; Z72.89 Other problems related to lifestyle; Z59.00 Homelessness unspecified; Z79.2 Long term (current) use of antibiotics; Z79.899 Other long term (current) drug therapy
CPT/HCPCS: 96372; 99283; J1885

== ENCOUNTER 2022-10-20 00:54 | Emergency (ER) | payer MEDICAID ==
[~2022-10-20] VITALS: Ht 167.6 cm; Wt 86.4 kg
[2022-10-20 06:51] LABS: BASOPHILS # (AUTO) 0.1 X10'3 (0-0.2); BASOPHILS % (AUTO) 1.6 % (0-1); EOSINOPHILS # (AUTO) 0.1 X10'3 (0-0.9); EOSINOPHILS % (AUTO) 1.6 % (0-6); HEMATOCRIT 37.6 % (42.0-52.0); HEMOGLOBIN 12.5 g/dl (14.0-17.9); LYMPHOCYTES # (AUTO) 0.9 X10'3 (1.1-4.8); LYMPHOCYTES % (AUTO) 15.1 % (21-51); MEAN CORPUSCULAR HEMOGLOBIN 28.4 PG (27.0-31.0); MEAN CORPUSCULAR HGB CONC 33.2 g/dL (33.0-36.5); MEAN CORPUSCULAR VOLUME 85.7 FL (78-98); MEAN PLATELET VOLUME 6.4 FL (7.4-10.4); MONOCYTES % (AUTO) 16.3 % (2-12); NEUTROPHILS % (AUTO) 65.4 % (42-75); PLATELET COUNT 319 X10'3 (140-440); RED BLOOD COUNT 4.39 X10'6 (4.70-6.10); RED CELL DISTRIBUTION WIDTH 18.5 % (11.5-14.5); WHITE BLOOD COUNT 6.1 X10'3 (4.5-11.0)
[2022-10-20 07:11] LABS: ALANINE AMINOTRANSFERASE 36 U/L (12-78); ALBUMIN/GLOBULIN RATIO 0.5 (1.1-1.5); ALKALINE PHOSPHATASE 157 IU/L (46-116); ANION GAP 8 (8-16); ASPARTATE AMINO TRANSFERASE 58 U/L (10-37); BILIRUBIN,TOTAL 0.6 MG/DL (0.1-1.0); BLOOD UREA NITROGEN 11 MG/DL (7-18); BUN/CREATININE RATIO 11.7 (5.4-32.0); CALCIUM 8.5 MG/DL (8.5-10.1); CHLORIDE 101 MMOL/L (99-107); CREATININE 0.94 MG/DL (0.60-1.10); ETHANOL < 0.010 GM/DL (0.0-0.010); GLUCOSE 108 MG/DL (70-104); POTASSIUM 3.4 MMOL/L (3.5-5.1); SODIUM 135 MMOL/L (135-145); TOTAL CARBON DIOXIDE 26.4 MMOL/L (24-32); TOTAL PROTEIN 8.6 G/DL (6.4-8.2); eGFR 83 ML/MIN
[2022-10-20 07:57] LABS: URINE AMPHETAMINE SCREEN POSITIVE (Neg); URINE BARBITUATE SCREEN NEGATIVE (Neg); URINE BENZODIAZEPINES SCREEN NEGATIVE (Neg); URINE CANNABINOID SCREEN POSITIVE (Neg); URINE COCAINE SCREEN NEGATIVE (Neg); URINE METHADONE SCREEN NEGATIVE (Neg); URINE OPIATE SCREEN NEGATIVE (Neg); URINE PHENCYCLIDINE SCREEN NEGATIVE (Neg)
[2022-10-20 10:09] VITALS: BP 146/103
[2022-10-20] MEDS ORDERED: traMADol 50MG tablet PO ONE (10:35)
--- NOTE | 2022-10-20 12:55 | NUR ---
pt given dc instructions. pt given important on following up with mental health.
== END 2022-10-20 12:57 | disposition still patient (30) ==
LOC: ER 00:55
DX: R44.1 Visual hallucinations (principal); Z20.822 Contact with and (suspected) exposure to COVID-19; M25.572 Pain in left ankle and joints of left foot; E78.00 Pure hypercholesterolemia, unspecified; I10 Essential (primary) hypertension; J45.909 Unspecified asthma, uncomplicated; G89.29 Other chronic pain; F31.9 Bipolar disorder, unspecified; F12.90 Cannabis use, unspecified, uncomplicated; F10.10 Alcohol abuse, uncomplicated; Z86.19 Personal history of other infectious and parasitic diseases; Z90.49 Acquired absence of other specified parts of digestive tract; Z98.890 Other specified postprocedural states; Z59.00 Homelessness unspecified; Z79.01 Long term (current) use of anticoagulants; Z79.899 Other long term (current) drug therapy; Y90.9 Presence of alcohol in blood, level not specified
CPT/HCPCS: 36415; 73600; 80053; 80305; 80320; 84145; 84443; 85025; 87811; 99284

== ENCOUNTER 2023-01-18 00:46 | Emergency (ER) | payer MEDICAID ==
[~2023-01-18] VITALS: Ht 180.3 cm; Wt 72.7 kg
[~2023-01-18 00:46] MED LIST changes: -MOME13HF3 PO; +MOME13HF8 PO
[2023-01-18 00:55] VITALS: BP 142/94
== END 2023-01-18 01:16 | disposition home or self-care (01) ==
LOC: ER 00:47
DX: S82.892A Other fracture of left lower leg, initial encounter for closed fracture (principal); F10.129 Alcohol abuse with intoxication, unspecified; E78.00 Pure hypercholesterolemia, unspecified; I10 Essential (primary) hypertension; J45.909 Unspecified asthma, uncomplicated; F12.90 Cannabis use, unspecified, uncomplicated; Z90.49 Acquired absence of other specified parts of digestive tract; Z59.00 Homelessness unspecified; Y90.9 Presence of alcohol in blood, level not specified; X58.XXXA Exposure to other specified factors, initial encounter; Y93.89 Activity, other specified; Y92.89 Other specified places as the place of occurrence of the external cause; Y99.8 Other external cause status
CPT/HCPCS: 99283